=== PATIENT | female | born 1945 | race Two or more races ===

== ENCOUNTER 2024-01-31 13:14 | Inpatient (IN) | payer OTHER, SELFPAY ==
[2024-01-31] VITALS (43 sets, daily range): BP systolic 90–134; BP diastolic 37–66; BMI 28.7; BMI 28.0
[2024-01-31 10:08] LABS: % Basophils 0.4 % (0-2); % Eosinophils 1.1 % (0-6); % Immature Granulocytes 0.2 % (0-0.5); % Monocytes 6.2 % (1.7-9.3); % Neutrophils 85.1 % (42.2-75.2); Absolute Eosinophils 0.1 10^3/uL (0-0.7); Absolute Lymphocytes 0.6 10^3/uL (1.2-3.4); Absolute Monocytes 0.6 10^3/uL (0.1-0.6); Absolute Neutrophils 7.7 10^3/uL (1.4-6.5); Hematocrit 30.6 % (37.0-47.0); Hemoglobin 10.2 g/dL (12.0-16.0); Mean Corp Hgb Conc. 33.3 g/dL (33.0-37.0); Mean Corpuscular Hgb 30.2 pg (27.0-31.0); Mean Corpuscular Volume 90.5 fL (81.0-99.0); Mean Platelet Volume 9.8 fL (7.4-10.4); Nucleated Red Blood Cells % 0 %; Platelet Count 213 10^3/uL (130-400); Red Blood Cell Count 3.38 10^6/uL (4.20-5.40); Red Cell Dist. Width 12.3 % (11.5-14.5)
--- NOTE | 2024-01-31 10:08 | EDRN ---
the pt is being taken to xray on the cardiac and Sp02 monitor with 6L NC running, Sp02 93%, provider Dr. Gr notified
[2024-01-31 10:20] LABS: Blood Urea Nitrogen 35 mg/dl (7-17); Calcium 8.2 mg/dl (8.4-10.2); Carbon Dioxide 20 mmol/L (22-30); Chloride 108 mmol/L (98-107); Estimated Creatinine Clearance 31 ml/min; Glucose 199 mg/dl (70-99); Sodium 137 mmol/L (135-145); eGFR 41.57
[2024-01-31 10:26] LABS: NT-proBNP 11300 pg/ml; Troponin I 0.959 ng/ml
--- NOTE | 2024-01-31 10:30 | EDRN ---
troponin came back elevated
--- NOTE | 2024-01-31 10:32 | ED.GENMED ---
History of Present Illness
General
Chief Complaint: Chest Pain
Source: patient
Exam Limitations: none
Time Seen by Provider: 01/31/24 09:54
History of Present Illness
History of Present Illness:
78-year-old female presents with chest tightness. States it started last night. She has been a little short of breath over the last few days. Thought she had a little bit of a cold but admits that she could not lay down flat last night because
she was more short of breath. Today her chest tightness seem worse. She does have a history of coronary artery disease. states her pulse ox was down to 70s last night. He also states her temperature was 100. Patient does report
continued chest tightness. No leg swelling. No palpitations. Her health and human performance professor is Dr. Rao
Past History
Past History
ED Past Medical History: CAD
Social History
Tobacco: Non-smoker
Phy Exam
Physical Exam
Physical Exam:
CONSTITUTIONAL Patient alert and oriented to person, place and time. ill-appearing. Vital signs reviewed.
HEAD atraumatic, normocephalic.
EYES eyelids normal to inspection, Pupils equally round and reactive to light, Extraocular muscles intact, Conjunctiva normal, Sclera normal.
NECK normal range of motion, Trachea midline, no jugular venous distention.
RESPIRATORY CHEST mild respiratory distress noted, Chest expansion equal, diminished at bilateral bases
CARDIOVASCULAR regular rate and rhythm, Heart sounds normal.
ABDOMEN abdomen nontender, Bowel sounds normal. No distention.
BACK normal inspection, no obvious deformities
UPPER EXTREMITY range of motion normal, Motor strength normal, no cyanosis, no edema.
LOWER EXTREMITY range of motion normal, Motor strength normal, no cyanosis, no edema.
NEURO Speech normal, No focal motor deficits, Adele coma scale 15, Memory normal, Cranial Nerves intact to screening exam.
SKIN skin warm, dry, and normal in color.
PSYCHIATRIC patient oriented to person place and time, Normal affect.
Scores
Heart Score for Chest Pain Patients
STEMI patient?: No
History: Highly Suspicious
ECG: Significant ST-Depression
Age: >/= 65 years
Risk Factors: >/= 3 Risk Factors or History of CAD
Troponin: >/= 3 x Normal Limit
Heart Score for Chest Pain Patients: 10
Heart Score Risk: 72.7 % MACE over next 6 weeks
Course
Orders/Labs/Results
Orders:
Orders
01/31/24 09:47
EKG [Electrocardiogram (*1)] Urgent
Reason for Study: Chest Pain
CR Chest - 2 Views Urgent
Comment:
Reason For Exam: shortness of breath
01/31/24 09:48
EKG- Treatment ONCE
01/31/24 09:52
Basic Metabolic Panel Urgent
Complete Blood Count/With Diff Urgent
NT-proBNP Urgent
Troponin I Urgent
01/31/24 10:28
Furosemide [Lasix] 40 mg IV NOW STA
01/31/24 10:30
Heparin 4,000 units IV NOW STA
Heparin 18989 Units/250 ml 25,000 units in 250 ml IV PER PROTOCOL
Weight to be used for heparin protocol in kilograms (kg):: 68.9
Protocol:: Cardiac Tx/Acute Coronary
PTT Goal Range to be used:: PTT 73 to 111 seconds
Order type:: Initial
INITIAL Infusion Dose (UNITS/KG/hr) & then follow protocol:: 12 units/kg/hr
Infusion Dose in UNITS/hr & then follow protocol (UNITS/hr):: 850
INFUSION RATE in mL/hr & then follow protocol (mL/hr):: 8.5
PTT less than or equal to 64 seconds:: Increase rate by 200 units/hr (+ 2 mL/hr)
PTT 64.1 to 72.9 seconds:: Increase rate by 100 units/hr (+ 1 mL/hr)
PTT 73 to 111 seconds:: Target Range. No change in rate.
PTT 111.1 to 130.9 seconds:: Decrease rate by 100 units/hr (- 1 mL/hr)
PTT 131 to 199.9 seconds:: HOLD for 1 hr. Then decrease rate by 200 units/hr (- 2 mL/hr)
PTT greater than or equal to 200 seconds:: HOLD for 2 hrs & Notify Provider. Then decrease by 200 units/hr (-
2 mL/hr)
Lab follow-up:: Each change, PTT q6h until 2 consecutive are therapeutic. Then PTT
daily.
Nursing to Place Non Medication Order As Directed
Physician Order: PTT 6 hours after initial start of Heparin infusion
Above order entered?: Yes
01/31/24 10:34
Electrocardiogram (*1) Urgent
Reason for Study: Chest Pain
EKG- Treatment ONCE
Nitroglycerin 100 mg/250 ml [Nitroglycerin Premix] 100 mg in 250 ml IV NOW
Initial dose in mcg/min, then titrate:: 5
Titrate to keep:: SBP < 160 mmHg
Titrate by mcg/min:: 5 mcg/min, may increase by 10 mcg/min if dose > 20 mcg/min
Frequency of titrations (minutes):: every 3-5 minutes
Maximum dose in mcg/min:: 200
Begin to taper infusion when:: Remained at goal for 2hrs
Taper by mcg/min:: 5 mcg/min
Frequency of taper (minutes) if patient maintains goal:: 30
Taper to off?: Yes
If infusion off & no longer maintaining goal:: Contact Provider
01/31/24 10:45
Heparin 59449 Units/250 ml 25,000 units in 250 ml IV PER PROTOCOL
Weight to be used for heparin protocol in kilograms (kg):: 68.9
Protocol:: Cardiac Tx/Acute Coronary
PTT Goal Range to be used:: PTT 73 to 111 seconds
Order type:: Initial
INITIAL Infusion Dose (UNITS/KG/hr) & then follow protocol:: 12 units/kg/hr
Infusion Dose in UNITS/hr & then follow protocol (UNITS/hr):: 850
INFUSION RATE in mL/hr & then follow protocol (mL/hr):: 8.5
PTT less than or equal to 64 seconds:: Increase rate by 200 units/hr (+ 2 mL/hr)
PTT 64.1 to 72.9 seconds:: Increase rate by 100 units/hr (+ 1 mL/hr)
PTT 73 to 111 seconds:: Target Range. No change in rate.
PTT 111.1 to 130.9 seconds:: Decrease rate by 100 units/hr (- 1 mL/hr)
PTT 131 to 199.9 seconds:: HOLD for 1 hr. Then decrease rate by 200 units/hr (- 2 mL/hr)
PTT greater than or equal to 200 seconds:: HOLD for 2 hrs & Notify Provider. Then decrease by 200 units/hr (-
2 mL/hr)
Lab follow-up:: Each change, PTT q6h until 2 consecutive are therapeutic. Then PTT
daily.
01/31/24 10:46
COVID-19 Antigen Urgent
Source: Nasal Swab
PTT Urgent
Comment: Obtain baseline before beginning heparin infusion if not already collected
Aspirin 325 mg PO NOW STA
01/31/24 11:[address] See Dose Instructions IV DIRECTED
01/31/24 11:04
CARDIOLOGY CONSULT Routine
Consulting Provider: Adalberto Escobedo
Was physician already notified: Yes
Reason for consult: heart failure
01/31/24 12:04
Add On- LAB Routine
Tests Added?: LFTs
01/31/24 12:27
Admit/Transfer Patient As Directed
Co-Sign Provider:
Level of Care: Inpatient admission
Assign to:: IVU
Physician / Group: Diamond Guan
Diagnosis: Heart Failure Exacerbation unspecified type and possible ACS
Reason for Hospitalization: Heart Failure Exacerbation unspecified type and possible ACS
Expected length of stay greater than two midnights?: Yes
ELOS- Estimated Length of Stay in days: 2
I certify the patient meets the requirements for IP care: Yes
PRN Pain Medication Management As Directed
May give lesser potent ordered pain med per pt: Yes
preference::
Protocol:: Medication orders for pain may be administered in a
manner that supports deferring to patient preference
when the pt is:
- Requesting an ordered lesser potent pain medication.
Least to most potent pain medications are defined
as: acetaminophen < NSAID < tramadol < opioids
(morphine, oxycodone, hydromorphone).
- Requesting a lesser dose of the same medication IF
ORDERED.
- Requesting a less intrusive route of administration
if both routes are prescribed by the provider (PO <
IV).
01/31/24 12:29
Code Status As Directed
Resuscitation Status: Full Code
01/31/24 12:[address] Non Medication Order As Directed
Physician Order: needs med reconciliation
Above order entered?: Yes
01/31/24 13:38
Influenza A+B Rapid Molecular Routine
MAUREEN Source: Nasal Swab
Specimen Description:
01/31/24 16:45
PTT Urgent
Abnormal Lab Results
01/31/24 01/31/24
09:52 10:46
RBC 3.38 L 10^6/uL
(4.20-5.40)
Hgb 10.2 L g/dL
(12.0-16.0)
Hct 30.6 L %
(37.0-47.0)
Absolute Neuts (auto) 7.7 H 10^3/uL
(1.4-6.5)
Absolute Lymphs (auto) 0.6 L 10^3/uL
(1.2-3.4)
Neutrophils % 85.1 H %
(42.2-75.2)
Lymphocytes % 7.0 L %
(20.5-51.1)
APTT 47.1 H Sec
(23.4-35.0)
Chloride 108 H mmol/L
(98-107)
Carbon Dioxide 20 L mmol/L
(22-30)
BUN 35 H mg/dl
(7-17)
Creatinine 1.3 H mg/dL
(0.6-1.0)
Glucose 199 H mg/dl
(70-99)
Calcium 8.2 L mg/dl
(8.4-10.2)
Troponin I 0.959 H* ng/ml
01/31/24 09:52
01/31/24 09:52
Vital Signs
Initial and Last Documented VS:
Initial Vital Signs
BP
119/55
01/31/24 09:48
Last Documented Vital Signs
Temp Pulse Resp BP Pulse Ox
98.4 F 65 22 105/52 95
01/31/24 09:54 01/31/24 15:30 01/31/24 15:30 01/31/24 15:15 01/31/24 15:30
MDM/Problems Addressed
MDM/Problems Addressed:
NSTEMI, acute coronary syndrome, congestive heart failure, hypoxia
*Radiology
Radiology exam reviewed: preliminary read by ED provider (CHF)
*Pulse Oximetry
Patient hypoxic: yes
*EKG
Interpreted by ED Provider?: Yes
Interpretation: abnormal
Rate: normal
Rhythm: sinus
[place]: normal axis
Ischemia: ST depression
*Foundation Assistant Interpretation
Rate: tachycardiac
Interpretation: abnormal
Rhythm: sinus
*Critical Care Note
Total Time (30-74mins, 75-104mins- exclusive of procedures): 45 minutes
Data Reviewed
Source: patient
Further Testing Considered But Not Given:
Considered chest CT but clearly CHF and NSTEMI.
Patient Management
Discussion with other providers: Staff Nurse Anesthetist (Case discussed with Dr. Escobedo)
Escalation/DeEscalation of care consider admission/obs:
Patient now being seen by cardiology at bedside. Chest pain/tightness does persist but now on nitroglycerin. He to be careful with her blood pressure with regard to oral diuretics and nitroglycerin. Given aspirin and heparin. Admit. EKG #2,
repeat is unchanged from #1
ED Attending Note
-
Portions of this chart may have been created with voice recognition software.� Occasional wrong word or��sound alike� substitutions may have occurred due to the inherent limitations of voice recognition software.
Discharge Plan
Departure
Patient Disposition: Admit
Date of Disposition: 01/31/24
Time of Disposition: 10:33
Admit to: [facility]
Presentation/result/management discussed w/ accepting MD/DO: Hospitalist
Discharge Problem:
Acute non-ST elevation myocardial infarction (NSTEMI), Unstable angina, CHF (congestive heart failure)
Interventions
Interventions:
*Risk Screen - Suicide Last Done: 01/31/24 09:54
*General Assessment Last Done: 01/31/24 09:54
*Neglect/Abuse Screening Last Done: 01/31/24 09:54
ED- Fall Risk Assessment Last Done: 01/31/24 09:54
*ED COVID-19 Vaccine History Last Done: 01/31/24 09:54
ED- Cardiac Assessment Last Done: 01/31/24 09:54
[2024-01-31] MEDS: LASIX 40 MG IV ×2 (10:39→17:16)
[2024-01-31] MEDS: HEPARIN 4000 UNITS IV (10:41)
[2024-01-31] MEDS: NITROGLYCERIN PREMIX 250 IV (10:42)
[2024-01-31] MEDS: HEPARIN 25000 UNITS/250 ML IV (10:44)
--- NOTE | 2024-01-31 10:59 | EDRN ---
the pt is resting in stretcher in the lowest position, side rails up x2, call rosas within reach, HOB elevated, NSR in the 70's with ST depression, last BP 98/38 (55), Dr. Escobedo at the pts bedside and aware of the pts hypotension, Heparin gtt
currently running at 850units/hour, and Nitro gtt currently running at 20mcg/min for chest pain of 7/10 in the center of the chest with no radiation, labs drawn and sent, PTT reordered for 1644, will continue to monitor the pt closely
--- NOTE | 2024-01-31 11:03 | CON.CAR ---
Addendum entered and electronically signed by Adalberto Escobedo MD 02/01/24 10:23:
plan for ASA should read: ASA 325mg now, then 81mg daily.
Original Note:
Consultation
Consultation Request
Date/Time Consultation Requested: 01/31/24, 1030am
Date/Time Consultation Performed: 01/31/24, 1040am
Requesting Provider: Aurora
Performing Provider: Fanny
Reason for Consultation: chest tightness
Medical History
-
Chief Complaint: SOB, chest tightness
History of Present Illness:
78 yo female with PMH of CAD, prior distal RCA stents 2000, HTN, hyperlipidemia presents to ED with SOB and chest tightness. On Fri, she reports she started with a 'head cold' and noticed increased WOB, and also chest tightness with inspiration.
The chest tightness did not seem to associate with activity. Then, last evening she noted low grade temp and hypoxia on home pulse ox. Her then brought her to the ED.
Currently, she has not chest pain at rest. There is some chest tightness with deep inspiration.
Past Medical History
Past Medical History: CAD, HTN and Hypercholesterolemia
Past Surgical History: Cardiac (stent x2 to distal RCA 2000)
Social History
Tobacco: Non-Smoker
Family History
Family History: CAD (sister)
Allergies / Home Medications
Allergy/AdvReac Type Severity Reaction Status Date / Time
No Known Allergies Allergy Unverified 01/31/24 10:31
ASA 81mg daily
Review of Systems
-
History Source: Patient and Family
Constitutional: Fever
Respiratory: Trouble Breathing
Cardiac: Chest Pain
Physical Exam
Vital Signs
Temp Pulse Resp BP Pulse Ox
98.4 F 75 20 134/62 96
01/31/24 09:54 01/31/24 10:39 01/31/24 10:00 01/31/24 10:39 01/31/24 10:00
Lab Results
01/31/24 09:52
01/31/24 09:52
Troponin I 0.959 ng/ml H* 01/31/24 09:52
Flm-U-Wneyhiwtcqd Pept 10260 pg/ml 01/31/24 09:52
Physical Exam
General: Respiratory Distress
HEENT: Normocephalic and Anicteric
Respiratory: Crackles and Accessory Resp Muscle Use
Cardiac: S1/S2 (normal), Regular Rhythm, Murmur (none), Peripheral Edema (trace) and JVD (present)
GI: Soft and Non Tender
Musculoskeletal: No Clubbing, No Cyanosis and Edema (trace LE)
Skin: Warm and Dry
Neuro: AO x 3
Psych: Calm
Impression / Plan
-
78 yo female with PMH of CAD, prior distal RCA stents 2000, HTN, hyperlipidemia presents to ED with SOB and chest tightness.
# SOB and chest tightness
-seemed to start with URI symptoms on Fri, then worsened
-the chest tightness does not seem like typical angina; however, she does have ST depression on EKG (no prior for comparison), and elevated troponin 0.9
-CXR also shows evidence of pulmonary edema
-may be acute HF (type unspecified) triggered by respiratory infection
-agree with IV lasix 40mg IV bid, with close monitoring of labs and tele
-we will also treat for NSTEMI vs Type II NV as we trend trop and EKG
-ASA 325mg bid, heaprin drip, nitro drip
# CAD s/p RCA stents in 2000
-plan as above
-we discussed topic of possible cardiac cath this admission
# HTN
-will hold home meds while on nitro drip
# Hyperlipidemia
-statin
Data Reviewed
-
EKG: Tracing Personally Visualized and interpreted (NSR, anterolateral ST depression)
Radiology: Image Personally Visualized and interpreted (pulmonary edema)
Labs: Labs Reviewed by me
--- NOTE | 2024-01-31 11:04 | HPS.HSE ---
Family Physician
-
Family Physician: NO INTERVIEW UNKNOWN
Chief Complaint
-
Shortness of breath
History of Present Illness
78F CAD RCA stentsx2 2000 HTN HLD p/w progressive intermittent chest pain shortness of breath approx duration 4 days. Patient reported symptoms started with a 'head cold' with associate fever 101. Fever since resolved, patient was prompted to
visit ED when she developed significant shortness of breath over night unable to lie flat. Denies weight gain leg swelling. Chest pain was described as central/sternal pressure intermittent never lasting more than a few minutes at a time. BP soft
low normotensive. Afebrile. Patient was noted desaturating on room air 82% requiring nasal cannula supplementation. CXR suggest pulm edema. Troponin elevated 0.959 amd BNP 55602.
Medical History
Past Medical History
Past Medical History: Reports Other (as above)
Past Surgical History: Reports Other (as above)
Social History
Tobacco: Non-smoker
Alcohol: None
Drug: None
Personal:
Living: With Family
Family History
Family History: Not pertinent (reviewed)
Allergies / Home Medications
Allergies reflects when Allergies were last updated in [employer].
Home Medications with original date entered in [employer]
Allergy/Medication List:
Allergies
Allergy/AdvReac Type Severity Reaction Status Date / Time
No Known Allergies Allergy Unverified 01/31/24 10:31
Review of Systems
-
A 12 point ROS was completed and negative except as noted: Yes
Constitutional: Reports Other (as below)
Physical Exam
Vital Signs
Vital Signs
Temp Pulse Resp BP Pulse Ox
98.4 F 75 20 134/62 96
01/31/24 09:54 01/31/24 10:39 01/31/24 10:00 01/31/24 10:39 01/31/24 10:00
Physical Exam
General: Other (as below)
Laboratory Results
-
01/31/24 09:52
01/31/24 09:52
Laboratory Results
Total Bilirubin Cancelled 01/31/24 09:52
AST Cancelled 01/31/24 09:52
ALT Cancelled 01/31/24 09:52
Alkaline Phosphatase Cancelled 01/31/24 09:52
Troponin I 0.959 ng/ml H* 01/31/24 09:52
Impression/Plan
-
ROS
General: reports fever at onset of symptoms since resolved
Neuro: Denies seizure shaking loss of consciousness dizziness vertigo
Psych: denies depression hallucinations confusion manic episodes
Endocrine: Denies polyuria polydipsia polyphagia heat/cold intolerance
HEENT: Denies blindness visual disturbances epistaxis
Pulmonary: reports orthopnea sob on exertion
Cardiovascular: reports intermittent chest pain described as sternal pressure sensation minutes duration at a time denies leg swelling
Hematology: denies signs symptoms of anemia easy bruising/bleeding
Gastrointestinal: denies nausea vomiting diarrhea constipation hematemesis hematochezia melena
Genito-Urinary: denies retention incontinence dysuria
Musculoskeletal: denies joint pain weakness
Dermatology: denies rash laceration bruising
Physical Exam
General: No pallor, cyanosis, or jaundice.
HEENT: Throat clear. PERRLA Normocephalic atraumatic
NECK: Supple. No JVD Carotid Bruits
RESPIRATORY: bibasilar crackles
CVS: S1, S2 normal. RRR. No murmur, rub or gallop.
ABDOMEN: Soft, non-tender. No distension. BS+/normal.
EXTREMITIES: No peripheral cyanosis or edema.
HOUSE WIRER HELPER: AOx3
IMPRESSION:
78F CAD RCA stentsx2 2000 HTN HLD p/w progressive intermittent chest pain shortness of breath approx duration 4 days. Patient reported symptoms started with a 'head cold' with associate fever 101. Fever since resolved, patient was prompted to
visit ED when she developed significant shortness of breath over night unable to lie flat. Denies weight gain leg swelling. Chest pain was described as central/sternal pressure intermittent never lasting more than a few minutes at a time. BP soft
low normotensive. Afebrile. Patient was noted desaturating on room air 82% requiring nasal cannula supplementation. CXR suggest pulm edema. Troponin elevated 0.959 amd BNP 97237.
PLAN:
#Acute Heart Failure unspecified type possibly triggered by recent viral URI
#Intermittent chest pain possibly NSTEMI vs type II PR
#Acute Respiratory Failure 2/2 Heart failure as above
#HTN
#HLD
IVU
IV lasix 40 BID
nitro prn chest pain (nitro gtt consider but chest pain free at time of evaluation and bp borderline low hypotensive)
Cardio eval appreciated cont hep gtt and ASA 325 mg BID, possible heart Cath planned for Mon
follow up AM lipid panel
trend troponin EKG
COVID neg, check Flu
#Non-insulin dependent DM
reports prior use ozempic since discontinued
on Actos at home
hold home oral diabetic medications for now
Follow up AM A1c and cont with insulin sliding scale for now.
dvt ppx hep gtt
gi ppx Protonix
Full Code
I spent a total of 75 minutes with the patient or on the floor. More than 50% of this time involved counseling and coordination of care.
--- NOTE | 2024-01-31 11:13 | EDRN ---
this RN entered the pts room and asked the pt how her chest pain currently is, the pt states that her chest 'pressure' is currently a 5/10, the pt states, 'it is so much better i am so much more comfortable', this RN notified Dr. Escobedo and per
Fanny the Nitro gtt is to stay at 2mcg/min, the pt is not symptomatic of hypotension, last BP 92/37 (52) will continue to monitor the pt closely
[2024-01-31 11:24] LABS: COVID-19 Antigen Negative (Negative)
[2024-01-31] MEDS: ASPIRIN 325 MG PO ×2 (11:25→19:58)
--- NOTE | 2024-01-31 11:30 | EDRN ---
this RN entered the pts room and per the pt her chest pressure is currently a 4/10, Nitro gtt currently still running at 20mcg/min, this RN notified Dr. Escobedo and per the provider this RN is to keep Nitro gtt at 20mcg/min and do not titrate unless
SBP drops below 90, current blood pressure 95/50 (65), no c/o lightheadedness of dizziness, PO Aspirin administered to the pt with no issues, will continue to monitor the pt closely
[2024-01-31 11:32] LABS: APTT 47.1 Sec (23.4-35.0)
--- NOTE | 2024-01-31 12:04 | EDRN ---
this RN reached out to Dr. Escobedo again to notify him that Nitro gtt is currently still at 20mcg/min with chest pain at a 07/05 with no radiation, the pt states that she feels, 'great and comfortable', the pts last blood pressure was 95/66 (76), per
Dr. Escobedo the Nitro gtt is to remain at 20mcg/min, the pt is resting in stretcher in the lowest position, side rails up x2, call rosas within reach, HOB elevated, no c/o SOB currently, NSR in the 70's with ST depression, the pt is currently still on
6L NC Sp02 97%, this RN notified that per the provider the pt is on bed rest, this RN notified the pt that when she has to urinate due to lasix that was administered to press the call rosas and she will be placed on the pure wick, the pt was educated
on the use of the call rosas again, and was educated on the use of the pure wick, the pt verbally stated that she understood, will continue to monitor the pt closely
--- NOTE | 2024-01-31 12:16 | EDRN ---
hospitalist currently at the pts bedside speaking with the pt and the pts
--- NOTE | 2024-01-31 13:24 | EDRN ---
medication reconciliation performed and completed with the pt and the pts
--- NOTE | 2024-01-31 14:21 | EDRN ---
the pt is resting in stretcher in the lowest position, side rails up x2, call rosas within reach, HOB elevated, no c/o SOB, the pt has 1/10 chest pain that is non radiating, Nitro gtt currently still at 20mcg/min, Heparin gtt currently still at
850units/hour, NSR in the 60's, the pt is currently still on 6L NC Sp02 97%, still awaiting an IVU bed, the pt denies needing anything at this time, will continue to monitor the pt closely
[2024-01-31] MEDS: PROTONIX 40 MG PO (17:16)
[2024-01-31] MEDS: FLUSH (NSS) 1 FLUSH IV (17:16)
--- NOTE | 2024-01-31 18:03 | PTCARENOTE ---
Received the patient from the ED in a stretcher. The patient is aaox3, vss, 99 on 4L. NSR is noted on the monitor. She ambulated to the bathroom x 1 assist. Her gait is steady. Heparin gtt running at 850 units/hr. Nitro gtt running at 20 mcg/min.
She has no complaints of pain or SOB. I oriented her to her room. Her call rosas is within reach.
[2024-01-31 19:01] LABS: APTT 141.6 Sec (23.4-35.0)
[2024-02-01] VITALS (8 sets, daily range): BP systolic 113–136; BP diastolic 47–72; BMI 27.6
[2024-02-01 03:07] LABS: Hematocrit 24.9 % (37.0-47.0); Hemoglobin 8.3 g/dL (12.0-16.0); Mean Corp Hgb Conc. 33.3 g/dL (33.0-37.0); Mean Corpuscular Hgb 31.1 pg (27.0-31.0); Mean Corpuscular Volume 93.3 fL (81.0-99.0); Mean Platelet Volume 9.6 fL (7.4-10.4); Platelet Count 203 10^3/uL (130-400); Red Blood Cell Count 2.67 10^6/uL (4.20-5.40); Red Cell Dist. Width 12.1 % (11.5-14.5); White Blood Cell Count 8.1 10^3/uL (4.8-10.8)
[2024-02-01 03:17] LABS: APTT 98.3 Sec (23.4-35.0)
[2024-02-01 03:36] LABS: Blood Urea Nitrogen 38 mg/dl (7-17); Calcium 8.1 mg/dl (8.4-10.2); Carbon Dioxide 25 mmol/L (22-30); Chloride 107 mmol/L (98-107); Estimated Creatinine Clearance 26 ml/min; Glucose 107 mg/dl (70-99); HDL Cholesterol 37 mg/dl; LDL Cholesterol, Calculated 37 mg/dl; Magnesium 2.1 mg/dl (1.6-2.3); Phosphorus 4.1 mg/dl (2.5-4.5); Potassium 4.1 mmol/L (3.5-5.1); Sodium 140 mmol/L (135-145); Total Cholesterol 100 mg/dl (50-199); Triglyceride 133 mg/dl (10-149); Very Low Density Lipoprotein 26 mg/dl (0-30); eGFR 35.01
--- NOTE | 2024-02-01 04:50 | PTCARENOTE ---
Pt received start of shift, HR SR. Heparin infusing at 650u/hr. Nitro infusing at 10mcg/min. Pt has remained CP free through shift. Urine clear yellow. Educated pt on risks of purewick, emphasizing on infection. Pt states understanding. Pt 96-97% 2L
NC.
--- NOTE | 2024-02-01 06:46 | PTCARENOTE ---
Around 0610 pt used call rosas to inform RN she felt extremely SOB and burning pain in neck 2-07/05. SpO2 89-90% 2L NC. 5L NC 94-96% - pt states she doesn't feel SOB. Nitro gtt titrated up to 20mcg, pt states neck pain gone. EKG completed.
[2024-02-01] MEDS: ASPIRIN 325 MG PO (08:11)
[2024-02-01] MEDS: FLUSH (NSS) 2 FLUSH IV (08:11)
[2024-02-01] MEDS: LASIX 40 MG IV (08:11)
--- NOTE | 2024-02-01 08:48 | W.PN.HOSP.TC ---
Today's Communication/Plan
-
cont hep gtt nitro gtt ASA BB as per cardio
npo after midnight for cath
hold lasix d/t concern increasing Cr
Oxygen supplementation as necessary goal sat 92%
follow up AM A1c
Assessment / Plan
Assessment / Plan
Physical Exam
General: No pallor, cyanosis, or jaundice.
HEENT: Throat clear. PERRLA Normocephalic atraumatic
NECK: Supple. No JVD Carotid Bruits
RESPIRATORY: bibasilar crackles on nasal cannula oxygen supplementation
CVS: S1, S2 normal. RRR. No murmur, rub or gallop.
ABDOMEN: Soft, non-tender. No distension. BS+/normal.
EXTREMITIES: No peripheral cyanosis or edema.
CAR RECORD CLERK: AOx3
IMPRESSION:
78F CAD RCA stentsx2 2000 HTN HLD p/w progressive intermittent chest pain shortness of breath approx duration 4 days. Patient reported symptoms started with a 'head cold' with associate fever 101. Fever since resolved, patient was prompted to
visit ED when she developed significant shortness of breath over night unable to lie flat. Denies weight gain leg swelling. Chest pain was described as central/sternal pressure intermittent never lasting more than a few minutes at a time. BP soft
low normotensive. Afebrile. Patient was noted desaturating on room air 82% requiring nasal cannula supplementation. CXR suggest pulm edema. Troponin elevated 0.959 and BNP 54132.
PLAN:
#Acute Heart Failure unspecified type possibly triggered by recent viral URI
#Intermittent chest pain possibly NSTEMI vs type II ID
#Acute Respiratory Failure 2/2 Heart failure as above
#HTN
#HLD
IVU
IV lasix 40 BID on hold d/t to rise in Cr as below
ECHO Friday
Cardio eval appreciated cont hep gtt, nitro gtt, ASA 81 mg daily, Metoprolol XL 25 mg BID, heart Cath planned for tomorrow Fri
Lipid panel appreciated LDL at goal <70
Troponin trended to peak 1.920
COVID neg, Flu neg
O2 supplementation prn goal sat 92%
Possible RACHEAL vs CKD III
-patient does endorse hx Chronic Kidney Disease but doesn't know her baseline Cr or what stage she was diagnosed
-mild Cr increase from initial Cr 1.3 to 1.5
-Lasix on hold as per Cardio
-monitor
hx HTN
Started on Metoprolol as per cardio
home antihypertensives on hold while on nitro gtt as above
#Non-insulin dependent DM
reports prior use ozempic since discontinued
on Actos at home
hold home oral diabetic medications for now
Follow up AM A1c, sliding scale if significantly elevated
dvt ppx hep gtt
gi ppx Protonix
Full Code
I spent a total of 55 minutes with the patient or on the floor. More than 50% of this time involved counseling and coordination of care.
Anticipated Discharge: 24 - 48 hours
Subjective/Interval History
-
Date of Service: February 01, 2024
No acute distress sitting up comfortable in bed. Overall reports feeling well, had an episode of shortness of breath desaturating since improved following increase in oxygen supplementation to 5L.
Objective Data
-
Labs:
Laboratory Results
02/01/24 02/01/24
02:51 08:55
WBC 8.1
Hgb 8.3 L
Hct 24.9 L
Plt Count 203
APTT 98.3 H Pending
Sodium 140
Potassium 4.1
Chloride 107
Carbon Dioxide 25
BUN 38 H
Creatinine 1.5 H
Glucose 107 H
Calcium 8.1 L
Vital Signs:
Vital Signs
Temp Pulse Resp BP Pulse Ox
98.8 F 67 20 114/53 99
02/01/24 06:52 02/01/24 07:00 02/01/24 06:52 02/01/24 06:54 02/01/24 06:52
I&O
01/31/24 02/01/24 02/02/24
06:59 06:59 06:59
Output Total 650 / 650 650 / 650
Balance -650 / -650 -650 / -650
[2024-02-01] MEDS: PROTONIX 40 MG PO (08:59)
[2024-02-01 09:12] LABS: APTT 89.2 Sec (23.4-35.0)
--- NOTE | 2024-02-01 11:25 | W.PN.CD ---
Today's Communication / Plan
-
ASA 81mg daily, heparin drip, nitro drip, beta larissa
plan for cath and echo in AM
Impression / Plan
-
78 yo female with PMH of CAD, prior distal RCA stents 2000, HTN, hyperlipidemia presents to ED with SOB and chest tightness.
#NSTEMI
-chest pain free, peak trop 1.9
-ASA 81mg daily, heparin drip, nitro drip, beta larissa
-plan for cath and echo in AM
# Acute HF, type unspecified: improved s/p IV lasix
-Cr mildly increased today, will hold additional diuretic
-echo tomorrow
# CAD s/p RCA stents in 2000
-plan as above
# HTN
-will hold home meds while on nitro drip
# Hyperlipidemia
-LDL 37
-statin
Physical Exam
Vital Signs/Labs
Vital Signs
Temp Pulse Resp BP Pulse Ox
98.9 F 67 20 114/53 97
02/01/24 11:06 02/01/24 07:00 02/01/24 11:06 02/01/24 06:54 02/01/24 11:06
01/31/24 02/01/24 02/02/24
06:59 06:59 06:59
Actual Weight 66.3 kg
02/01/24 02:51
02/01/24 02:51
APTT 89.2 Sec (23.4-35.0) H 02/01/24 08:53
Magnesium 2.1 mg/dl (1.6-2.3) 02/01/24 02:51
Triglycerides 133 mg/dl (10-149) 02/01/24 02:51
LDL Cholesterol, Calc 37 mg/dl 02/01/24 02:51
VLDL Cholesterol, Calc 26 mg/dl (0-30) 02/01/24 02:51
HDL Cholesterol 37 mg/dl 02/01/24 02:51
01/31/24
09:52
Fgx-H-Mfuimifwqaw Pept [id number]
LAB Results
01/31/24 01/31/24 01/31/24
09:52 17:26 22:53
Troponin I 0.959 H* 1.860 H* D 1.920 H*
02/01/24
02:51
Troponin I 1.890 H*
Physical Exam
Constitutional: No acute distress and Comfortable
EENT: Moist mucous membranes
Cardiovascular: Rhythm & rate is regular, Pedal edema is absent, JVD pressure is normal and Systolic murmur absent
Respiratory: Respiratory effort normal
Neuro/Psych: AO x 3
Data Reviewed
-
Date of Service: February 01, 2024
EKG: Other (Tele: SR 60s)
Labs: Labs Reviewed by me
[2024-02-01] MEDS: TOPROL XL 25 MG PO ×2 (11:56→19:49)
[2024-02-01] MEDS: NON-FORMULARY ITEM 1 TABLET PO ×2 (12:35→19:51)
[2024-02-01] MEDS: CRESTOR 20 MG PO (17:08)
--- NOTE | 2024-02-01 19:03 | PTCARENOTE ---
The patient has been chest pain free all shift. Her vitals remained stable and her oxygen has been weaned down to 3L. NSR has been noted on the monitor. She has been oob to the chair and ambulatory in her room. Hr gait is steady.
[2024-02-01] MEDS: HEPARIN 25000 UNITS/250 ML IV (22:53)
[2024-02-02] VITALS (13 sets, daily range): BP systolic 117–141; BP diastolic 49–82; BMI 27.2
[2024-02-02] MEDS: ATIVAN 0.25 MG PO (01:09)
--- NOTE | 2024-02-02 01:21 | PTCARENOTE ---
Pt received start of shift, HR SR. 3L NC humidified 96-97%. Nitro infusing at 20mcg/min. Heparin infusing at 650u/hr. Reinforced CAD/HF education w/ pt.
Pt used call rosas. On entering the room, pt appeared extremely anxious - RR 30s and looking around frantically. SPO2 95% 3L NC. Spoke with pt and she stated she is feeling extremely anxious about cardiac cath procedure in am. Calming therapeutic
speech used. Even after explaining to pt she is not getting open heart surgery tomorrow (which pt had thought was going to happen), pt still very anxious. Continued to speak with pt about procedure and her anxiety, pt stated she is open to taking
medication to help calm her for the night. TT OVEN LABORER Lynda Sauer. 0.25mg ativan PO ordered and administered.
[2024-02-02 04:31] LABS: Hematocrit 27.2 % (37.0-47.0); Hemoglobin 9.1 g/dL (12.0-16.0); Mean Corp Hgb Conc. 33.5 g/dL (33.0-37.0); Mean Corpuscular Hgb 31.2 pg (27.0-31.0); Mean Corpuscular Volume 93.2 fL (81.0-99.0); Mean Platelet Volume 9.4 fL (7.4-10.4); Platelet Count 258 10^3/uL (130-400); Red Blood Cell Count 2.92 10^6/uL (4.20-5.40); Red Cell Dist. Width 12.1 % (11.5-14.5); White Blood Cell Count 8.5 10^3/uL (4.8-10.8)
[2024-02-02 04:51] LABS: APTT 195.7 Sec (23.4-35.0)
[2024-02-02 05:25] LABS: Blood Urea Nitrogen 40 mg/dl (7-17); Calcium 8.2 mg/dl (8.4-10.2); Carbon Dioxide 24 mmol/L (22-30); Chloride 107 mmol/L (98-107); Estimated Creatinine Clearance 28 ml/min; Glucose 138 mg/dl (70-99); Magnesium 2.1 mg/dl (1.6-2.3); Phosphorus 3.6 mg/dl (2.5-4.5); Potassium 4.1 mmol/L (3.5-5.1); Sodium 141 mmol/L (135-145); eGFR 38.03
[2024-02-02] MEDS: PROTONIX 40 MG PO (07:56)
[2024-02-02] MEDS: LOW STRENGTH ASPIRIN 81 MG PO (07:56)
[2024-02-02] MEDS: TOPROL XL 25 MG PO ×2 (07:56→19:46)
[2024-02-02] MEDS: NON-FORMULARY ITEM 1 UNIT PO ×2 (07:57→19:45)
[2024-02-02 08:25] LABS: Glycohemoglobin (HgbA1c) 5.6 % (4.0-5.6)
--- NOTE | 2024-02-02 13:23 | CM ---
Chart reviewed. Patient is independent of ADLS, lives with her in a 2 [address], total of 5 TIFFANIE, 0 DME. Plan is for the patient to return home. CM to follow
--- NOTE | 2024-02-02 14:59 | W.PN.HOSP.TC ---
Today's Communication/Plan
-
hep ggt
LHC - await results for next steps
ECHO
BB, statin
Assessment / Plan
Assessment / Plan
Physical Exam
General: No pallor, cyanosis, or jaundice.
HEENT: Throat clear. PERRLA Normocephalic atraumatic
NECK: Supple. No JVD Carotid Bruits
RESPIRATORY: bibasilar crackles on nasal cannula oxygen supplementation
CVS: S1, S2 normal. RRR. No murmur, rub or gallop.
ABDOMEN: Soft, non-tender. No distension. BS+/normal.
EXTREMITIES: No peripheral cyanosis or edema.
SAFETY FIRE BOSS: AOx3
IMPRESSION:
78F CAD RCA stentsx2 2000 HTN HLD p/w progressive intermittent chest pain shortness of breath approx duration 4 days. Patient reported symptoms started with a 'head cold' with associate fever 101. Fever since resolved, patient was prompted to
visit ED when she developed significant shortness of breath over night unable to lie flat. Denies weight gain leg swelling. Chest pain was described as central/sternal pressure intermittent never lasting more than a few minutes at a time. BP soft
low normotensive. Afebrile. Patient was noted desaturating on room air 82% requiring nasal cannula supplementation. CXR suggest pulm edema. Troponin elevated 0.959 and BNP 19386.
PLAN:
#Acute Heart Failure unspecified type
#NSTEMI
#Intermittent chest pain
#Acute Respiratory Failure 2/2 Heart failure as above
#HTN
#HLD
IV lasix 40 BID on hold d/t to rise in Cr as below
ECHO
Cardio eval appreciated cont hep gtt, nitro gtt, ASA 81 mg daily, Metoprolol XL 25 mg BID
LHC
trop peak 1.9
statin
COVID neg, Flu neg
O2 supplementation prn goal sat 92%
Possible RACHEAL vs CKD III
-patient does endorse hx Chronic Kidney Disease but doesn't know her baseline Cr or what stage she was diagnosed
-mild Cr increase from initial Cr 1.3 to 1.5
-Lasix until ECHO performed; Scr slight rise today
-monitor
hx HTN
home antihypertensives on hold while on nitro gtt as above
BB
#Non-insulin dependent DM
reports prior use ozempic since discontinued
on Actos at home
hold home oral diabetic medications for now
Follow up AM A1c, sliding scale if significantly elevated
dvt ppx hep gtt
gi ppx Protonix
Full Code
Total time spent on today's encounter was 50 minutes which included time spent in counseling the patient/family regarding diagnosis and treatment plan as listed above, goals of care, and symptom management. Case was discussed with nursing staff,
specialists, and care coordinators/case management. All labs and imaging personally reviewed by me. Remainder the time spent in detailed review of previous records, lab data, imaging, and other medical provider documentation.
Anticipated Discharge: 24 - 48 hours
Subjective/Interval History
-
Date of Service: February 02, 2024
no acute events, no chest pain
Objective Data
-
Labs:
Laboratory Results
02/02/24 02/02/24
04:09 11:55
WBC 8.5
Hgb 9.1 L
Hct 27.2 L
Plt Count 258 D
APTT 195.7 H* Cancelled
Sodium 141
Potassium 4.1
Chloride 107
Carbon Dioxide 24
BUN 40 H
Creatinine 1.4 H
Glucose 138 H
Calcium 8.2 L
Vital Signs:
Vital Signs
Temp Pulse Resp BP Pulse Ox
97.7 F 62 18 123/60 97
02/02/24 11:01 02/02/24 12:00 02/02/24 11:01 02/02/24 11:01 02/02/24 11:01
I&O
02/01/24 02/02/24 02/03/24
06:59 06:59 06:59
Intake Total 120 / 120
Output Total 650 / 650 2650 / 2650
Balance -650 / -650 -2530 / -2530
Review of Systems
-
History Source: Patient
All other systems: Not reviewed unless documented
Data Reviewed
-
Diagnostic Radiology: Image personally visualized and interpreted and Report Reviewed by me
Labs: Labs Reviewed by me
[2024-02-02] MEDS: NSS 1000 IV (15:05)
--- NOTE | 2024-02-02 15:07 | CONSULT.CT ---
Consultation
-
Date/Time Consultation Requested: 02/02/24 150
Date/Time Consultation Performed: 02/02 1508
Requesting Provider: Kaden SAUCEDO
Performing Provider: Adama Godoy MD
Reason for Consultation: CABG eval
Patient History
Physicians
Family Physician: Bruce Ramirez
Outpatient Dress Cutter: Jalen
Inpatient Dress Cutter: Fanny (she is interested in switching to Fanny)
History of Present Illness
78-year-old female with past medical history of hypertension, hyperlipidemia, CAD s/p stents x 2 to the RCA in 2000 presented to [facility] on 01/30 with progressive intermittent chest pain and shortness of breath for about 4 days. She
reported having symptoms that started with a 'head cold' and fever of Tmax 101. However she presented to the emergency room after developing significant shortness of breath where she was unable to lie flat. While in the emergency room she was
found to have an elevated troponin and a BNP of 11,000. She was started on aspirin, heparin and nitroglycerin infusion and was sent to the cardiac Fabrication Supervisor today. During her left heart cath she was noted to have multivessel disease and CT surgery
was consulted for surgical evaluation.
Past Medical History
Past Medical History: CAD (Stents to RCA), CHF, HTN, Hypercholesterolemia, NIDDM, IA, Renal Insufficiency and SOB
Past Surgical History
Past Surgical History: Cholecystectomy, Orthopedic (rotator cuff) and Other
bile duct stent
Family History
Family Medical History: CAD
Social History
Alcohol: Occasional
Drug: None
Tobacco: Former Smoker
Personal:
Living: With Spouse
Employment: Retired
Allergies
Allergy/AdvReac Type Severity Reaction Status Date / Time
No Known Allergies Allergy Unverified 01/31/24 10:31
Home Medications
�Medication �Instructions �Recorded �Confirmed �Type
amlodipine 10 mg tablet 10 mg PO DAILY Blood Pressure 01/31/24 01/31/24 History
carvedilol 12.5 mg tablet 12.5 mg PO BID Blood Pressure 01/31/24 01/31/24 History
hydralazine 25 mg tablet 25 mg PO BID Blood Pressure 01/31/24 01/31/24 History
pioglitazone 30 mg tablet 30 mg PO DAILY Diabetes 01/31/24 01/31/24 History
vit C 250 mg-vit E 90 mg-zinc 40 1 tab PO BID Supplement 01/31/24 02/01/24 History
mg-copper 1 [id number]
capsule (PreserVision AREDS-2)
Review of Systems
-
History Source: Patient
General: Reports Sleep Disturbance
HEENT: Reports No Symptoms
Respiratory: Reports SOB and PIERRE
Cardiac: Reports CAD
Abdomen/GI: Reports No Symptoms
: Reports No Symptoms
Musculoskeletal: Reports No Symptoms
Skin: Reports No Symptoms
Neurological: Reports No Symptoms
Vascular: Reports No Symptoms
Physical Exam
Vital Signs
Temp 97.7 F 02/02/24 11:01
Temp route: Oral 02/02/24 11:01
Pulse 62 02/02/24 12:00
Rhythm: Normal sinus rhythm 02/02/24 09:22
With- PVC's Monomorphic 02/01/24 08:10
Resp Rate 18 02/02/24 11:01
Blood pressure 123/60 02/02/24 11:01
Blood pressure extremity used: Right upper arm 02/02/24 11:01
Position: Sitting 02/02/24 11:01
MAP (cuff-Christophe Monitor) 80 02/02/24 11:01
MAP 60 01/31/24 14:23
SaO2 97 02/02/24 11:01
Nasal Cannula flow liters per minute 3 02/02/24 11:01
Oxygen Mode of Delivery Room air 02/02/24 09:22
Acceptable pain level during hospitalization? 5 01/31/24 09:54
Can the patient verbally communicate their pain? Yes 02/02/24 09:22
Pain scale ratin 02/02/24 09:22
Actual Weight 65.2 kg 02/02/24 04:39
Body Mass Index (BMI) 27.2 02/02/24 04:39
Labs
02/02/24 04:09
02/02/24 04:09
APTT Cancelled 02/02/24 11:55
Hemoglobin A1c 5.6 % (4.0-5.6) 02/02/24 04:09
Troponin I 1.890 ng/ml H* 02/01/24 02:51
Tjw-C-Qqgvthtcexy Pept 93940 pg/ml 01/31/24 09:52
Exam
General: Well Developed
HEENT: PERRLA
Respiratory: Clear
Cardiac: S1/S2 and Regular Rhythm
GI: Soft
Rectal: Deferred by Provider
Skin: Warm and Dry
Neuro: AO x 3
Lymph: No Lymphadenopathy
Psych: Calm
Assessment / Plan
-
78-year-old female with past medical history listed above presented to [facility] with progressive shortness of breath. She ruled in for an NSTEMI and was taken to the cardiac Fabrication Supervisor in which multivessel disease was found. CT surgery
consulted for surgical evaluation.
#CAD
#NSTEMI
-Patient's case will be discussed with attending physician. However, patient expresses disinterest in surgical intervention at this time. As she stated, 'I'm too old for that crap'.
>>surgical testing will be postponed since patient is not interested in surgical intervention at this time.
-Continue nitroglycerin and heparin gtt per cardiology
- TTE pending
#RACHEAL
- Trend Cr levels
- denies previous kidney issues
Data Reviewed
-
EKG: Tracing Personally Visualized and interpreted
Labs: Labs Reviewed by me and Discussed with Patient
Total Time Spent with Patient (in minutes): 45
--- NOTE | 2024-02-02 15:13 | PTCARENOTE ---
Rec'd Pt alert and oriented, but drowsy from sedation. R redial band intact, C+D. Good radial pulse. R brachial dsg D+I.
--- NOTE | 2024-02-02 17:11 | PTCARENOTE ---
Pt now having a few questions about open heart surgery, she says that now she is not ready to 'write it off'. Nimo ley.
[2024-02-02] MEDS: CRESTOR 20 MG PO (17:26)
--- NOTE | 2024-02-02 17:34 | PTCARENOTE ---
Pt assisted OOB to BR, corinna well. O2 on at 2L/min
--- NOTE | 2024-02-02 20:35 | PTCARENOTE ---
Assessment as documented, Vss. Denies CP but continues to have PIERRE. Cath sites WNL. Patient indicates she would like something to help her sleep as she is anxious. Ativan order obtained.
[2024-02-02] MEDS: ATIVAN 0.25 MG IV (22:12)
[2024-02-02] MEDS: NSS (PRESERVATIVE FREE) 0.125 ML IV (22:12)
[2024-02-03] VITALS (8 sets, daily range): BP systolic 107–137; BP diastolic 49–88; BMI 27.4
--- NOTE | 2024-02-03 01:28 | PTCARENOTE ---
Pt received start of shift, HR SR. R radial and R brachial cath sites soft, no hematoma. Dressings CDI. R radial pulse normal. Pt extremely anxious thinking about the decision on whether or not to 'get [her] chest cracked open'. Spoke at length with
pt about CABG procedure. Pt still undecided about procedure. Educated pt on how procedure may improve QOL and what to expect after. Pt states understanding.
[2024-02-03 04:08] LABS: Blood Urea Nitrogen 39 mg/dl (7-17); Calcium 8.3 mg/dl (8.4-10.2); Carbon Dioxide 22 mmol/L (22-30); Chloride 106 mmol/L (98-107); Estimated Creatinine Clearance 32 ml/min; Glucose 160 mg/dl (70-99); Phosphorus 3.7 mg/dl (2.5-4.5); Potassium 4.3 mmol/L (3.5-5.1); Sodium 138 mmol/L (135-145); eGFR 45.76
[2024-02-03 04:32] LABS: Hemoglobin 9.5 g/dL (12.0-16.0); Mean Corp Hgb Conc. 35.2 g/dL (33.0-37.0); Mean Corpuscular Hgb 31.6 pg (27.0-31.0); Mean Corpuscular Volume 89.7 fL (81.0-99.0); Mean Platelet Volume 9.9 fL (7.4-10.4); Platelet Count 249 10^3/uL (130-400); Red Blood Cell Count 3.01 10^6/uL (4.20-5.40); Red Cell Dist. Width 11.9 % (11.5-14.5); White Blood Cell Count 8.6 10^3/uL (4.8-10.8)
--- NOTE | 2024-02-03 07:44 | W.PN.CD ---
Today's Communication / Plan
-
CTS consult, echo, GDMT pending EF, diuresis
Impression / Plan
-
78 yo female with PMHx of CAD, prior distal RCA stents 2000, HTN, hyperlipidemia presents to ED with SOB and chest tightness, found to have NSTEMI with peak troponin 1.9, now status post cardiac catheterization with severe triple vessel disease.
#NSTEMI
#CAD s/p RCA stents in 2000
-cath with triple vessel disease including proximal LCx, long segment LAD disease, and RPLDA/RPL disease
-chest pain free, peak trop 1.9
-cont. ASA 81mg daily, heparin drip, nitro drip, beta larissa - holding P2Y12 inhibitor pending surgical discussion
-plan echo today
# Acute HF, type unspecified: improved s/p IV lasix
-RHC with elevated filling pressures, patient endorses orthopnea
-diuresis today for goal 500 negative
-Cr improved today
-echo - GDMT pending EF
# HTN
-holding home coreg (metop in place), amlodipine, and hydral
-pending EF will add on GDMT/anti-HTN as indicated
# Hyperlipidemia
-LDL 37
-cont. statin
Physical Exam
Vital Signs/Labs
Vital Signs
Temp Pulse Resp BP Pulse Ox
36.6 C 76 22 127/57 97
02/03/24 03:14 02/03/24 07:00 02/03/24 03:14 02/03/24 03:14 02/03/24 03:14
02/02/24 02/03/24 02/04/24
06:59 06:59 06:59
Actual Weight 65.2 kg 65.7 kg
02/03/24 03:29
02/03/24 03:29
APTT Cancelled 02/02/24 11:55
Magnesium 2.0 mg/dl (1.6-2.3) 02/03/24 03:29
Triglycerides 133 mg/dl (10-149) 02/01/24 02:51
LDL Cholesterol, Calc 37 mg/dl 02/01/24 02:51
VLDL Cholesterol, Calc 26 mg/dl (0-30) 02/01/24 02:51
HDL Cholesterol 37 mg/dl 02/01/24 02:51
01/31/24
09:52
Vra-D-Afbutvdfeqz Pept 51608
LAB Results
01/31/24 01/31/24 01/31/24
09:52 17:26 22:53
Troponin I 0.959 H* 1.860 H* D 1.920 H*
02/01/24
02:51
Troponin I 1.890 H*
Physical Exam
Constitutional: No acute distress
Cardiovascular: Rhythm & rate is regular, Pedal edema is absent, Systolic murmur absent and Diastolic murmur absent
Respiratory: Respiratory effort normal and Lungs clear to auscul.
Neuro/Psych: Alert, Oriented and AO x 3
Data Reviewed
-
Date of Service: February 03, 2024
Medical Decision Making: Reviewed Test Results and Tests Ordered
EKG: Tracing Personally Visualized and interpreted and Report Reviewed by me
X-Ray/CT/US/MRI/NUC/PET: Image Personally Visualized and interpreted and Report Reviewed by me
Labs: Labs Reviewed by me and Labs Ordered by me
--- NOTE | 2024-02-03 08:01 | ITS.CL.CATH ---
Hoisting [employer] - Catheterization
Cardiac Catheterization
Procedure Report:
CARDIAC CATHETERIZATION REPORT
Date of Procedure: 02/02/2024
Referring: Dr. Adalberto Escobedo
Indication: NSTEMI
PROCEDURE:
1. Right heart catheterization
2. Left heart catheterization
3. Coronary angiography
ACCESS:
6 Portuguese right radial artery
5 Portuguese right antecubital vein
CATHETERS:
1. 5 Portuguese balloon wedge/[place]un
2. 6 Portuguese JL3.5
3. 6 Portuguese JR4
HEMODYNAMIC DATA
LV 143/18 (EDP 31)
AO 133/59 (mean 91)
RA 12
RV 41/7 (EDP 14)
PA 44/23 (mean 31)
PCWP 19
CO/CI 4.3/2.6
SVR 1459
PVR 2.8
CORONARY ANGIOGRAPHY
Dominance: right
LM: large with minimal disease
LAD: gives rise to two diagonal branches. The proximal vessel is heavily calcified and the mid-distal vessel is severely and diffusely diseased with a long segment 80% stenosis.
LCx: gives rise to a moderate caliber OM1 and large branching OM2. There is a 90% stenosis in the proximal LCx after OM1 and diffuse moderate to severe disease in the distal branches of OM2.
RCA: large vessel giving rise to a RPDA and several RPL branches. There significant calcification through the RCA. The mid-RCA has a calcified 60% stenosis. There is an 80% stenosis in a small caliber RPDA and an 80% stenosis in the distal RPL,
which are both small vessels.
Closure Device: TR band
Radiation dose (mGy): 264
DAP (cm2.Gy): 18.3
Fluoroscopy time (minutes): 3.6
CONCLUSIONS:
1. Severe triple vessel coronary artery disease
2. Elevated biventricular filling pressures and normal cardiac output.
3. No aortic stenosis.
RECOMMENDATIONS:
1. Expectant management after cardiac catheterization via right approach.
2. Echo in AM.
3. CT surgery consult. If no good target for HERNANDEZ, would instead offer PCI of the possible culprit LCx and medically manage her LAD and RCA disease.
4. Cont. ASA, BB, statin. No P2Y12 for now pending surgical decision making.
Copy to: Bruce Ramirez, DO
Signed: Pradeep Holley MD, PhD
[2024-02-03] MEDS: NON-FORMULARY ITEM 1 UNIT PO ×2 (08:57→19:52)
[2024-02-03] MEDS: PROTONIX 40 MG PO (08:57)
[2024-02-03] MEDS: LOW STRENGTH ASPIRIN 81 MG PO (08:57)
[2024-02-03] MEDS: TOPROL XL 25 MG PO ×2 (08:57→19:52)
[2024-02-03] MEDS: LASIX 40 MG IV (09:02)
--- NOTE | 2024-02-03 09:38 | PN.CDI ---
CDI
- -
CDI:
Physician Documentation Request
Admit Date: 01/31/24 13:14
Dear Doctor Tripp,
Please review the following and provide your response in the progress notes.
Clinical Indicators:
- 02/01 PN 'Acute Respiratory Failure' without specificity
- per EMS report, pulse ox 87% on room air, placed on 4L O2
- Pulse ox 82% on admission, placed on 6L O2, pulse ox 96%
Please clarify the type and acuity of respiratory failure:
Type
Respiratory failure with hypoxia
Respiratory failure with hypercapnia
Respiratory failure with hypoxia and hypercapnia
Other, please specify
Use of terms such as suspected, likely, concern for, or probable (associated with a specific diagnosis that is being evaluated, monitored, or treated as if it exists) are acceptable and can be coded in the inpatient setting, when documented at the
time of discharge.
Thank you,
Dave Lee RN
CDI Specialist
Please use your independent medical judgment in providing your response.
--- NOTE | 2024-02-03 10:42 | CM ---
Chart reviewed. Patient apprehensive about CT surgery. I will have a heart to heart volunteer come and talk with the patient. Patient is CABG vs PCI. Patient is independent of ADLS, lives in a [address], total of 5 TIFFANIE, 0 DME. Plan is to return
home. CM to follow
--- NOTE | 2024-02-03 12:41 | PTCARENOTE ---
Pt o2 sat 93% on RA while sitting OOB in chair this AM. Pt then c/o SOB this morning during ECHO, O2 sat 91% on 1L O2, O2 increased to 3L/ min so the Pt would be able to tolerate Echo. IV Lasix ordered and given around 0900. Pt voided >750 ml and is
feeling much better this afternoon
--- NOTE | 2024-02-03 14:25 | W.PN.HOSP.TC ---
Today's Communication/Plan
-
ct surgery eval for tripple vessel disaese
ASA, holding on brillinta
BB, ASA, statin
iv lasix today, dose daily monitoring BMP
Will need to be placed on GDMT due to acute HFrEF
Assessment / Plan
Assessment / Plan
Physical Exam
General: No pallor, cyanosis, or jaundice.
HEENT: Throat clear. PERRLA Normocephalic atraumatic
NECK: Supple. No JVD Carotid Bruits
RESPIRATORY: bibasilar crackles on nasal cannula oxygen supplementation
CVS: S1, S2 normal. RRR. No murmur, rub or gallop.
ABDOMEN: Soft, non-tender. No distension. BS+/normal.
EXTREMITIES: No peripheral cyanosis or edema.
MEAT SMOKER: AOx3
IMPRESSION:
78F CAD RCA stentsx2 2000 HTN HLD p/w progressive intermittent chest pain shortness of breath approx duration 4 days. Patient reported symptoms started with a 'head cold' with associate fever 101. Fever since resolved, patient was prompted to
visit ED when she developed significant shortness of breath over night unable to lie flat. Denies weight gain leg swelling. Chest pain was described as central/sternal pressure intermittent never lasting more than a few minutes at a time. BP soft
low normotensive. Afebrile. Patient was noted desaturating on room air 82% requiring nasal cannula supplementation. CXR suggest pulm edema. Troponin elevated 0.959 and BNP 06539.
PLAN:
#NSTEMI
#Intermittent chest pain
#Acute Respiratory Failure 2/2 Heart failure as above
#HTN
#HLD
Cardio eval appreciated cont hep gtt, nitro gtt, ASA 81 mg daily, Metoprolol XL 25 mg BID
LHC: Triple Vessel Disease - CT surgery eval
trop peak 1.9
statin
COVID neg, Flu neg
O2 supplementation prn goal sat 92%
#Ischemic Cardiomyopathy
##Acute HFrEF (35-40%)
-BB, ASA, statin
-Will need GDMT
-see plan above
-IV lasix today and monitor renal function
Possible RCAHEAL vs CKD III
-patient does endorse hx Chronic Kidney Disease but doesn't know her baseline Cr or what stage she was diagnosed
--Cont on Lasix - monitor renal function
hx HTN
home antihypertensives on hold while on nitro gtt as above
BB
#Non-insulin dependent DM
reports prior use ozempic since discontinued
on Actos at home
hold home oral diabetic medications for now
Follow up AM A1c: 5.6
dvt ppx : hsq
gi ppx Protonix
Full Code
Total time spent on today's encounter was 51 minutes which included time spent in counseling the patient/family regarding diagnosis and treatment plan as listed above, goals of care, and symptom management. Case was discussed with nursing staff,
specialists, and care coordinators/case management. All labs and imaging personally reviewed by me. Remainder the time spent in detailed review of previous records, lab data, imaging, and other medical provider documentation.
Anticipated Discharge: > 48 hours
Subjective/Interval History
-
Date of Service: February 03, 2024
Severe triple-vessel disease on left heart cath 02/01, pending surgery evaluation
Objective Data
-
Labs:
Laboratory Results
02/03/24
03:29
WBC 8.6
Hgb 9.5 L
Hct 27.0 L
Plt Count 249
Sodium 138
Potassium 4.3
Chloride 106
Carbon Dioxide 22
BUN 39 H
Creatinine 1.2 H
Glucose 160 H
Calcium 8.3 L
Vital Signs:
Vital Signs
Temp Pulse Resp BP Pulse Ox
97.7 F 72 16 137/56 92
02/03/24 10:40 02/03/24 10:40 02/03/24 10:40 02/03/24 07:47 02/03/24 10:40
I&O
02/02/24 02/03/24 02/04/24
06:59 06:59 06:59
Intake Total 120 / 120 294 / 294
Output Total 2650 / 2650 800 / 800
Balance -2530 / -2530 -506 / -506
Review of Systems
-
History Source: Patient
All other systems: Not reviewed unless documented
Data Reviewed
-
Diagnostic Radiology: Image personally visualized and interpreted and Report Reviewed by me
Labs: Labs Reviewed by me
--- NOTE | 2024-02-03 14:47 | W.PN.UPDATE ---
Update Note
Progress Note Update
Procedure Type:�CABG + MVR
PERIOPERATIVE OUTCOME ESTIMATE %
Operative Mortality 18.5%
Morbidity & Mortality 52.2%
Stroke 3.86%
Renal Failure 20.2%
Reoperation 12.5%
Prolonged Ventilation 44.7%
Deep Sternal Wound Infection 0.646%
Long Hospital Stay (>14 days) 43.5%
Short Hospital Stay (<6 days)* 1.96%
Clinical Summary
Planned Surgery: CABG + MVR, Concomitant Tricuspid Repair, Urgent, First cardiovascular surgery
Demographics: 78 year old, female, 65.7kg, 155cm, BMI: 27.4 kg/m�
Lab Values: Creatinine: 1.2 mg/dL, Hematocrit: 27%, WBC Count: 8.6 10�/�L, Platelet Count: 758560 cells/�L
Substance Abuse: Former smoker, Alcohol use: <=1 drink/week
Risk Factors / Comorbidities: Diabetes Mellitus , Hypertension, Family Hx of CAD
Cardiac Status: Acute and chronic heart failure, NYHA Class II, Ejection Fraction = 35%
Coronary Artery Disease: 3 vessels diseased, Proximal LAD Stenosis >=70%, Non-ST Elevation PR, PR: 1 to 7 Days
Valve Disease: Severe MR, Severe TR
Prev. Cardiac Interv: Previous PCI: Not at this facility
Pt with significantly elevated morbidity and mortality risk for MVR/TVr/CABG, recommend she proceed with interventional cards for PCI. No surgery being offered to her at this time, we will sign off.
[2024-02-03] MEDS: HEPARIN 5000 UNITS SC ×2 (16:42→23:31)
[2024-02-03] MEDS: CRESTOR 20 MG PO (17:29)
--- NOTE | 2024-02-03 17:42 | W.PN.UPDATE ---
Update Note
Progress Note Update
Patient discussed with Dr. Godoy from CT surgery and not felt to be a good candidate for CABG given poor targets and age/comorbidities. Will start ticagrelor and GDMT for heart failure and plan for PCI to LCx on 02/04.
[2024-02-03] MEDS: BRILINTA 180 MG PO (18:02)
[2024-02-03] MEDS: ENTRESTO 24 MG/26 MG 1 TAB PO (19:52)
[2024-02-03] MEDS: ATIVAN 0.25 MG PO (22:39)
[2024-02-04 04:05] VITALS: BP 130/49
[2024-02-04 04:16] VITALS: BMI 27.1
[2024-02-04 04:54] LABS: Hematocrit 28.3 % (37.0-47.0); Hemoglobin 9.4 g/dL (12.0-16.0); Mean Corp Hgb Conc. 33.2 g/dL (33.0-37.0); Mean Corpuscular Hgb 29.7 pg (27.0-31.0); Mean Corpuscular Volume 89.6 fL (81.0-99.0); Mean Platelet Volume 9.3 fL (7.4-10.4); Platelet Count 277 10^3/uL (130-400); Red Blood Cell Count 3.16 10^6/uL (4.20-5.40); Red Cell Dist. Width 11.9 % (11.5-14.5); White Blood Cell Count 7.7 10^3/uL (4.8-10.8)
[2024-02-04 05:23] LABS: Blood Urea Nitrogen 37 mg/dl (7-17); Calcium 8.5 mg/dl (8.4-10.2); Carbon Dioxide 22 mmol/L (22-30); Chloride 107 mmol/L (98-107); Estimated Creatinine Clearance 30 ml/min; Glucose 151 mg/dl (70-99); Magnesium 1.9 mg/dl (1.6-2.3); Phosphorus 3.7 mg/dl (2.5-4.5); Potassium 3.8 mmol/L (3.5-5.1); Sodium 141 mmol/L (135-145); eGFR 41.57
--- NOTE | 2024-02-04 05:27 | PTCARENOTE ---
Pt has been anxious for most of the beginning of shift. METER TESTER POLYPHASE television service engineer was notified. Ativan 0.25 mg PO was order. Pt was able to sleep and her anxiety was more under control. Pt is AAOx3. Pt remains on 3L NC, dyspneic w/ exertion. Will wean O2 down as
tolerated.
[2024-02-04 06:46] VITALS: BP 120/81
--- NOTE | 2024-02-04 08:00 | PTCARENOTE ---
Assumed care of pt from prev nsg shift AAOx3 w/no c/o CP or SOB. Pt is Dyspneic on exertion but recovers easily at rest. SpO2 on 3L 99%. VS stable this AM w/HR in the 60's & BP 120/81. Pt is SR w/prol QT on telemetry monitoring. Pt does report being
'very anxious regarding plan of care' & asking about Ativan as needed; pt advised to ask the Drs about whether she can have it. Pt w/call rosas within reach & no addtl needs at this time.
--- NOTE | 2024-02-04 08:15 | W.PN.CD ---
Today's Communication / Plan
-
plan for PCI tomorrow
Impression / Plan
-
78 yo female with PMHx of CAD, prior distal RCA stents 2000, HTN, hyperlipidemia presents to ED with SOB and chest tightness, found to have NSTEMI with peak troponin 1.9, now status post cardiac catheterization with severe triple vessel disease.
#NSTEMI
#CAD s/p RCA stents in 2000
-cath with triple vessel disease including proximal LCx, long segment LAD disease, and RPLDA/RPL disease
-high risk for surgery; plan will be PCI to Lcx tomorrow
-ASA, Brilinta
#ICM, EF 30-35%
-now on Toprol XL 25mg bid, entresto 24/26mg bid
-case mgmt pricing for SGLT2i
-eventual aldactone, but will wait until after cath
# Acute HFrEF
-improved s/p IV lasix
# Valvular HD
-moderate/severe MR and TR
-will reassess after PCI and GDMT
-potential MitraClip candidate in future
# HTN
-meds changed to GDMT
-now on Toprol XL 25mg bid, entresto 24/26mg bid
# Hyperlipidemia
-LDL 37
-cont. rosuvastatin
Physical Exam
Vital Signs/Labs
Vital Signs
Temp Pulse Resp BP Pulse Ox
98.0 F 65 18 120/81 99
02/04/24 06:49 02/04/24 06:46 02/04/24 06:49 02/04/24 06:46 02/04/24 06:49
02/03/24 02/04/24 02/05/24
06:59 06:59 06:59
Actual Weight 65.7 kg 65.1 kg
02/04/24 04:14
02/04/24 04:14
APTT Cancelled 02/02/24 11:55
Magnesium 1.9 mg/dl (1.6-2.3) 02/04/24 04:14
Triglycerides 133 mg/dl (10-149) 02/01/24 02:51
LDL Cholesterol, Calc 37 mg/dl 02/01/24 02:51
VLDL Cholesterol, Calc 26 mg/dl (0-30) 02/01/24 02:51
HDL Cholesterol 37 mg/dl 02/01/24 02:51
01/31/24
09:52
[id number] Pept [id number]
Physical Exam
Constitutional: No acute distress and Comfortable
EENT: Moist mucous membranes
Cardiovascular: Rhythm & rate is regular, Pedal edema is absent, JVD pressure is normal and Systolic murmur present
Respiratory: Respiratory effort normal and Lungs clear to auscul.
Neuro/Psych: AO x 3
Data Reviewed
-
Date of Service: February 04, 2024
EKG: Other (Tele: sinus rhythm)
Labs: Labs Reviewed by me
[2024-02-04] MEDS: HEPARIN 5000 UNITS SC ×3 (09:14→23:28)
[2024-02-04] MEDS: NON-FORMULARY ITEM 1 UNIT PO ×2 (09:15→19:35)
[2024-02-04] MEDS: LOW STRENGTH ASPIRIN 81 MG PO (09:15)
[2024-02-04] MEDS: BRILINTA 90 MG PO ×2 (09:15→19:34)
[2024-02-04] MEDS: TOPROL XL 25 MG PO ×2 (09:15→19:34)
[2024-02-04] MEDS: ENTRESTO 24 MG/26 MG 1 TAB PO ×2 (09:16→19:35)
[2024-02-04] MEDS: PROTONIX 40 MG PO (09:16)
--- NOTE | 2024-02-04 09:28 | CM ---
Addendum entered by Cherie Atkinson RN 02/04/24 10:59:
Patient is agreeable to cost. I will place a free 30 day coupon in the patient's red discharge folder.
Original Note:
Pricing on Brilinta 90mg BID through the [facility], ID#[id number], is $110 for a 30 day supply.
Farxiga 10mg daily is $150 for a 30 day supply
Jardiance 10mg daily is $148 for a 30 day supply.
--- NOTE | 2024-02-04 11:00 | CM ---
Chart reviewed. Patient is independent of ADLS, lives with her in a 2 STH, total of 5 TIFFANIE, 0 DME. Patient not a candidate for CABG. Plan PCI. Plan is for the patient to return home. CM to follow.
--- NOTE | 2024-02-04 11:20 | PTCARENOTE ---
Pt called this RN in to see her; Pt reporting feeling 'increased anxiety after speaking w/HF educator'. Pt's O2 sat 92% on RA. Pt appears SOB at rest w/her anxiety. O2 2L via NC placed on pt for comfort. Emotional support provided. Hospitalist in to
see pt & pt spoke w/MD re: something for anxiety. Awaiting further orders.
[2024-02-04 11:46] VITALS: BP 99/71
[2024-02-04] MEDS: XANAX 0.25 MG PO ×2 (12:19→20:57)
--- NOTE | 2024-02-04 14:33 | W.PN.HOSP.TC ---
Today's Communication/Plan
-
PCI tomorrow
Aspirin, Brilinta, beta-larissa, Entresto
Pricing for SGLT2i
Assessment / Plan
Assessment / Plan
Physical Exam
General: No pallor, cyanosis, or jaundice.
HEENT: Throat clear. PERRLA Normocephalic atraumatic
NECK: Supple. No JVD Carotid Bruits
RESPIRATORY: bibasilar crackles on nasal cannula oxygen supplementation
CVS: S1, S2 normal. RRR. No murmur, rub or gallop.
ABDOMEN: Soft, non-tender. No distension. BS+/normal.
EXTREMITIES: No peripheral cyanosis or edema.
ATOMIC PROCESS ENGINEER: AOx3
IMPRESSION:
78F CAD RCA stentsx2 2000 HTN HLD p/w progressive intermittent chest pain shortness of breath approx duration 4 days. Patient reported symptoms started with a 'head cold' with associate fever 101. Fever since resolved, patient was prompted to
visit ED when she developed significant shortness of breath over night unable to lie flat. Denies weight gain leg swelling. Chest pain was described as central/sternal pressure intermittent never lasting more than a few minutes at a time. BP soft
low normotensive. Afebrile. Patient was noted desaturating on room air 82% requiring nasal cannula supplementation. CXR suggest pulm edema. Troponin elevated 0.959 and BNP 89105.
PLAN:
#NSTEMI
#Intermittent chest pain
#Acute Respiratory Failure 2/2 Heart failure as above
#HTN
#HLD
Cardio eval appreciated cont hep gtt, nitro gtt, ASA 81 mg daily, Metoprolol XL 25 mg BID
LHC: Triple Vessel Disease - CT surgery eval�high risk for surgery; plan for PCI to left circumflex tomorrow
Continue aspirin, Brilinta
trop peak 1.9
statin
COVID neg, Flu neg
O2 supplementation prn goal sat 92%
#Ischemic Cardiomyopathy
#Acute HFrEF (35-40%)
-BB, ASA, statin, Entresto
-Will need GDMT - pricing for SGLT2i
-see plan above
-IV lasix 10.8 - hold further diuretics for LHC
Possible RACHEAL vs CKD III
-patient does endorse hx Chronic Kidney Disease but doesn't know her baseline Cr or what stage she was diagnosed
--Cont on Lasix - monitor renal function
hx HTN
home antihypertensives on hold while on nitro gtt as above
BB
#Non-insulin dependent DM
reports prior use ozempic since discontinued
on Actos at home
hold home oral diabetic medications for now
Follow up AM A1c: 5.6
dvt ppx : hsq
gi ppx Protonix
Full Code
Anticipated Discharge: 24 - 48 hours
Subjective/Interval History
-
Date of Service: February 04, 2024
Nonsurgical candidate, plan for PCI tomorrow
Objective Data
-
Labs:
Laboratory Results
02/04/24
04:14
WBC 7.7
Hgb 9.4 L
Hct 28.3 L
Plt Count 277
Sodium 141
Potassium 3.8
Chloride 107
Carbon Dioxide 22
BUN 37 H
Creatinine 1.3 H
Glucose 151 H
Calcium 8.5
Vital Signs:
Vital Signs
Temp Pulse Resp BP Pulse Ox
97.6 F 60 16 99/71 100
02/04/24 11:46 02/04/24 11:46 02/04/24 11:46 02/04/24 11:46 02/04/24 11:46
I&O
02/03/24 02/04/24 02/05/24
06:59 06:59 06:59
Intake Total 294 / 294 240 / 240 640 / 640
Output Total 800 / 800 700 / 700
Balance -506 / -506 -460 / -460 640 / 640
Review of Systems
-
History Source: Patient
All other systems: Not reviewed unless documented
Data Reviewed
-
Diagnostic Radiology: Image personally visualized and interpreted and Report Reviewed by me
Labs: Labs Reviewed by me
[2024-02-04 15:28] VITALS: BP 96/69
[2024-02-04] MEDS: CRESTOR 20 MG PO (17:16)
[2024-02-04 18:32] VITALS: BP 115/46
--- NOTE | 2024-02-04 21:24 | PTCARENOTE ---
Received patient at shift change. SB on the monitor, HR in the 50-60s. Pt complains of anxiety, PRN Xanax administered as per MAR. Discussed plan of care with pt, pt verbalizes understanding. Call rosas within reach.
[2024-02-04 23:27] VITALS: BP 101/49
[2024-02-05] VITALS (13 sets, daily range): BP systolic 85–137; BP diastolic 43–80; BMI 27.3
[2024-02-05 05:01] LABS: Hematocrit 28.5 % (37.0-47.0); Hemoglobin 9.7 g/dL (12.0-16.0); Mean Corpuscular Hgb 31.1 pg (27.0-31.0); Mean Corpuscular Volume 91.3 fL (81.0-99.0); Mean Platelet Volume 9.3 fL (7.4-10.4); Platelet Count 254 10^3/uL (130-400); Red Blood Cell Count 3.12 10^6/uL (4.20-5.40); White Blood Cell Count 6.5 10^3/uL (4.8-10.8)
[2024-02-05 05:26] LABS: Blood Urea Nitrogen 37 mg/dl (7-17); Calcium 8.2 mg/dl (8.4-10.2); Carbon Dioxide 23 mmol/L (22-30); Chloride 107 mmol/L (98-107); Estimated Creatinine Clearance 28 ml/min; Glucose 135 mg/dl (70-99); Phosphorus 4.2 mg/dl (2.5-4.5); Potassium 4.2 mmol/L (3.5-5.1); Sodium 141 mmol/L (135-145); eGFR 38.03
--- NOTE | 2024-02-05 08:36 | PTCARENOTE ---
Assumed care of pt from prev nsg shift AAOx3 w/no c/o CP or SOB. Pt is Dyspneic on exertion but recovers easily at rest. SpO2 on RA is 93%. VS stable this AM w/HR in the 60's & BP 111/43. Pt is SR w/prol QT on telemetry monitoring. Pt reports that
PRN Xanax for her anxiety is 'working very well' & she reports getting a good's nights sleep. Pt w/call rosas within reach & no addtl needs at this time. Plan of care ongoing.
[2024-02-05] MEDS: NON-FORMULARY ITEM 1 UNIT PO ×2 (09:33→19:58)
[2024-02-05] MEDS: FLUSH (NSS) 1 FLUSH IV (09:33)
[2024-02-05] MEDS: LOW STRENGTH ASPIRIN 81 MG PO (09:35)
[2024-02-05] MEDS: TOPROL XL 25 MG PO ×2 (09:35→19:57)
[2024-02-05] MEDS: PROTONIX 40 MG PO (09:35)
[2024-02-05] MEDS: XANAX 0.25 MG PO ×2 (09:35→22:32)
[2024-02-05] MEDS: BRILINTA 90 MG PO ×2 (09:36→19:57)
[2024-02-05] MEDS: HEPARIN 5000 UNITS SC (09:36)
[2024-02-05] MEDS: ENTRESTO 24 MG/26 MG 1 TAB PO ×2 (09:36→19:57)
--- NOTE | 2024-02-05 10:00 | CM ---
Chart reviewed. Patient is independent of ADLS, lives with her in a 2 STH, 5 TIFFANIE, 0 DME. Patient waiting to go to the labor gang supervisor for a PCI. Plan is for the patient to return home with [facility]. BONILLA to follow
--- NOTE | 2024-02-05 13:21 | PTCARENOTE ---
Report to Meera in the blood bank laboratory professional; pt transported in her bed to the oven laborer.
[2024-02-05 14:05] LABS: ACT-LR - POC 322 Seconds (116-155)
[2024-02-05 14:33] LABS: ACT-LR - POC 334 Seconds (116-155)
[2024-02-05 14:59] LABS: ACT-LR - POC 282 Seconds (116-155)
--- NOTE | 2024-02-05 15:47 | W.PN.HOSP.TC ---
Today's Communication/Plan
-
Single stent to the left circumflex with Shockwave lithotripsy
IVF
monitor respiratory status, renal function
Assessment / Plan
Assessment / Plan
Physical Exam
General: No pallor, cyanosis, or jaundice.
HEENT: Throat clear. PERRLA Normocephalic atraumatic
NECK: Supple. No JVD Carotid Bruits
RESPIRATORY: bibasilar crackles on nasal cannula oxygen supplementation
CVS: S1, S2 normal. RRR. No murmur, rub or gallop.
ABDOMEN: Soft, non-tender. No distension. BS+/normal.
EXTREMITIES: No peripheral cyanosis or edema.
ORAL AND MAXILLOFACIAL PATHOLOGIST: AOx3
IMPRESSION:
78F CAD RCA stentsx2 2000 HTN HLD p/w progressive intermittent chest pain shortness of breath approx duration 4 days. Patient reported symptoms started with a 'head cold' with associate fever 101. Fever since resolved, patient was prompted to
visit ED when she developed significant shortness of breath over night unable to lie flat. Denies weight gain leg swelling. Chest pain was described as central/sternal pressure intermittent never lasting more than a few minutes at a time. BP soft
low normotensive. Afebrile. Patient was noted desaturating on room air 82% requiring nasal cannula supplementation. CXR suggest pulm edema. Troponin elevated 0.959 and BNP 05794.
PLAN:
#NSTEMI
#Intermittent chest pain
#Acute Respiratory Failure 2/2 Heart failure as above
#HTN
#HLD
Cardio eval appreciated cont hep gtt, nitro gtt, ASA 81 mg daily, Metoprolol XL 25 mg BID
LHC: Triple Vessel Disease - CT surgery eval�high risk for surgery; Single stent to the left circumflex with Shockwave lithotripsy 02/04
Continue aspirin, Brilinta
trop peak 1.9
statin
COVID neg, Flu neg
O2 supplementation prn goal sat 92%
#Ischemic Cardiomyopathy
#Acute HFrEF (35-40%)
-BB, ASA, statin, Entresto
-Will need GDMT - pricing for SGLT2i
-see plan above
-IV lasix 10.8 - hold further diuretics for LHC
Possible RACHEAL vs CKD III
-patient does endorse hx Chronic Kidney Disease but doesn't know her baseline Cr or what stage she was diagnosed
--Holding lasix, giving fluids for contrast today
hx HTN
home antihypertensives on hold while on nitro gtt as above
BB
#Non-insulin dependent DM
reports prior use ozempic since discontinued
on Actos at home
hold home oral diabetic medications for now
Follow up AM A1c: 5.6
dvt ppx : hsq
gi ppx Protonix
Full Code
Anticipated Discharge: Within 24 hours
Subjective/Interval History
-
Date of Service: February 05, 2024
no acute events
Objective Data
-
Labs:
Laboratory Results
02/05/24
04:43
WBC 6.5
Hgb 9.7 L
Hct 28.5 L
Plt Count 254
Sodium 141
Potassium 4.2
Chloride 107
Carbon Dioxide 23
BUN 37 H
Creatinine 1.4 H
Glucose 135 H
Calcium 8.2 L
Vital Signs:
Vital Signs
Temp Pulse Resp BP Pulse Ox
98.5 F 64 20 122/52 98
02/05/24 11:18 02/05/24 11:17 02/05/24 11:18 02/05/24 11:17 02/05/24 11:18
I&O
02/04/24 02/05/24 02/06/24
06:59 06:59 06:59
Intake Total 240 / 240 640 / 640 60 / 60
Output Total 700 / 700 500 / 500
Balance -460 / -460 140 / 140 60 / 60
Review of Systems
-
History Source: Patient
All other systems: Not reviewed unless documented
Data Reviewed
-
Diagnostic Radiology: Image personally visualized and interpreted and Report Reviewed by me
Labs: Labs Reviewed by me
--- NOTE | 2024-02-05 16:01 | PTCARENOTE ---
Rec'd report from Meera; Rec'd pt back AAOx3 w/no c/o CP or SOB. Pt w/R groin site w/dressing C/D/I w/no signs or symptoms of bleeding or hematoma. Pt's VS stable w/HR in the 80's & BP 137/56 upon arrival. Pt is 97% on RA. Discussed activity
restrictions w/pt & spouse. Purewick placed while pt is bedrest. Pt w/call rosas within reach & plan of care ongoing.
[2024-02-05] MEDS: HEPARIN SC (16:40)
--- NOTE | 2024-02-05 17:29 | ITS.CL.PN ---
Marketing Data Specialist - Procedure Note
Procedure
Procedure Note:
CARDIAC CATHETERIZATION REPORT
Date of Procedure: 02/05/24
Referring: Dr. Adalberto Escobedo
Indication: NSTEMI
PROCEDURE:
1. Left heart catheterization
2. PCI with RICHI to the LCx
3. Shockwave lithotripsy
4. IVUS
ACCESS:
6 [place]oc[place] right common femoral artery (due to severe spasm during diagnostic cath)
CATHETERS:
1. 6 [place]oc[place] XB 3.5 guide catheter
2. 6 [place]oc[place] pigtail catheter
HEMODYNAMIC DATA
LV 157/18 (EDP 32)
AO 158/60 (mean 98)
INTERVENTIONS - IVUS-guided PCI, Shockwave lithotripsy facilitated PCI to the LCx with RICHI
Under ultrasound guidance and using a micropuncture kid, 6F right common femoral access was obtained. A 6F XB3.5 guide catheter was used to engaged the left main. Heparin was given to achieve and maintain ACT>250. A Runthrough coronary wire was
placed in the distal OM branch. A second Runthrough could not be passed to protect the continuation of the LCx. Initial balloon preparation was performed with a 1.5x10 mm Eurphora balloon (2.0 balloon would not pass) followed by the 2.0x12 mm
balloon. It was then possible to advance a second Runthrough wire to protect the LCx continuation. Further lesion preparation was performed with a 2.25x15 mm NC balloon. IVUS was then performed demonstrating severe calcification with multiple
segments of concentric calcification extending from the proximal to mid-LCx and a 2.75 mm reference vessel diameter. Shockwave lithotripsy was performed with a 2.5 mm Shockwave balloon with 90 pulses delivered and full expansion of the balloon
throughout the lesion length at 6 kaylen. Repeat IVUS demonstrated calcium fracture. A 2.75x26 [place] RICHI was selected and deployed at nominal pressure with excellent angiographic result and ROSEMARY 3 flow in the LCx continuation without compromise
of the branch. The protection wire was removed. The entire stent was then post-dilated with a 2.75 NC balloon to high pressure (18 kaylen throughout, 20 kaylen proximally). IVUS was repeated and demonstrated full expansion and apposition without edge
dissection. There remained a small region of focal relative under-expansion proximally but given that this had been treated with Shockwave lithotripsy and high pressure NC post-dilation, it was not felt that further post-dilation was be helpful. The
wire and guide were removed and a Angioseal placed after confirming DESPATCHING AND RECEIVING CLERK stick location with hand injection angiography. The patient was taken to recovery in stable condition.
Closure Device: 6F Angioseal
Radiation dose (mGy): 581.87
DAP (cm2.Gy): 36.4932
Fluoroscopy time (minutes): 26.3
CONCLUSIONS:
1. Elevated LV filling pressure and no aortic stenosis
2. Successful IVUS-guided, Shockwave-lithotripsy facilitated PCI to the LCx with placement of a 2.75x30 mm [place] RICHI post-dilated with a 2.75 NC balloon to high pressure.
RECOMMENDATIONS:
1. Expectant management after cardiac catheterization via right femoral artery approach
2. Post-cath fluids 1.5mL/kg/hr x 4 hours for JESUS prevention
3. Continue DAPT with ASA/ticagrelor for 1 year
4. High intensity statin for goal LDL<55
5. Further titration of GDMT pending AM Cr, continue current medications
6. Cardiac rehab post-discharge
Copy to: Dr. Adalberto Escobedo, Dr. Bruce Ramirez
Signed: Pradeep Holley MD, PhD
[2024-02-05] MEDS: CRESTOR 20 MG PO (19:58)
--- NOTE | 2024-02-05 22:21 | PTCARENOTE ---
Continued care of pt; Pt AAOx3 w/no c/o CP or SOB. Pt s/p cardiac cath today w/R groin dressing C/D/I w/no signs or symptoms of bleeding or hematoma. Pt w/VS stable w/HR in the 70's & BP this evening 131/54. Pt OOB x1P to BR w/no issues. Pt voided
650 mls clear, yellow urine from purewick & another large unmeasurable void in the toilet. Pt resting back in bed w/call rosas within reach.
--- NOTE | 2024-02-06 | PTCARENOTE ---
Received report from RN, assumed care of patient at 1900. Nursing assessment as documented, see worklist. SQ heparin given without difficulties. Warm blankets provided. Right fem site C/D/I. VSS, call rosas within reach, care ongoing.
[2024-02-06 00:02] VITALS: BP 132/57
[2024-02-06] MEDS: HEPARIN 5000 UNITS SC ×2 (00:03→07:51)
[2024-02-06 04:18] VITALS: BP 123/51
[2024-02-06 04:28] VITALS: BMI 27.0
[2024-02-06 04:43] LABS: Hematocrit 27.6 % (37.0-47.0); Hemoglobin 9.2 g/dL (12.0-16.0); Mean Corp Hgb Conc. 33.3 g/dL (33.0-37.0); Mean Corpuscular Hgb 30.7 pg (27.0-31.0); Mean Platelet Volume 9.4 fL (7.4-10.4); Platelet Count 250 10^3/uL (130-400); Red Cell Dist. Width 11.9 % (11.5-14.5); White Blood Cell Count 6.4 10^3/uL (4.8-10.8)
[2024-02-06 05:09] LABS: Blood Urea Nitrogen 30 mg/dl (7-17); Calcium 8.2 mg/dl (8.4-10.2); Carbon Dioxide 22 mmol/L (22-30); Chloride 110 mmol/L (98-107); Estimated Creatinine Clearance 32 ml/min; Glucose 147 mg/dl (70-99); Magnesium 1.9 mg/dl (1.6-2.3); Phosphorus 3.5 mg/dl (2.5-4.5); Potassium 3.8 mmol/L (3.5-5.1); Sodium 142 mmol/L (135-145); eGFR 45.76
[2024-02-06 06:00] VITALS: BMI 27.0
[2024-02-06 06:46] VITALS: BP 115/52
[2024-02-06] MEDS: TOPROL XL 25 MG PO (07:51)
[2024-02-06] MEDS: ENTRESTO 24 MG/26 MG 1 TAB PO (07:51)
[2024-02-06] MEDS: LOW STRENGTH ASPIRIN 81 MG PO (07:51)
[2024-02-06] MEDS: PROTONIX 40 MG PO (07:51)
[2024-02-06] MEDS: BRILINTA 90 MG PO (07:51)
[2024-02-06] MEDS: NON-FORMULARY ITEM 1 UNIT PO (07:52)
[2024-02-06] MEDS: XANAX 0.25 MG PO (07:59)
[2024-02-06 08:19] VITALS: BP 122/52
--- NOTE | 2024-02-06 11:42 | CM ---
Chart reviewed. Patient is independent of ADLS, lives with her in a 2 STH, total of 5 TIFFANIE, 0 DME. Plan is for the [facility]. CM to follow
[2024-02-06] MEDS: FARXIGA 10 MG PO (11:53)
[2024-02-06 12:06] VITALS: BP 140/49
[2024-02-06 12:07] VITALS: BP 134/49
--- NOTE | 2024-02-06 13:37 | W.DS.TRANS ---
DC Summary - Bank Vault Custodian
-
Discharge Instructions:
Sleep Apnea Risk Low
Discharge Diagnosis/Procedures NSTEMI, s/p lithotripsy with angioplasty and
stent to Left Circumflex artery
Diet Low Sodium,Low Cholesterol,Low Fat,Diabetic,
Carb Controlled
Activity As tolerated
Driving Restrictions No driving for 24 hours
Blood Work cbc, cmp within 3-5 days with pcp/cardiology
Other Services Cardiac Rehab
Instructions: *PCP/Other Fur Tailor Heart Failure Instructions
Stand-Alone Forms: DC Instructions- Cath/EP Lab
Changes to Home Medications: Yes
Discharge Medications:
DC Medications w/original date entered in [facility]
pioglitazone 30 mg tablet 30 mg PO DAILY Diabetes 01/31/24
vit C 250 mg-vit E 90 mg-zinc 40 mg-copper 1 [id number] capsule (PreserVision AREDS-2) 1 tab PO BID Supplement 01/31/24
aspirin 81 mg chewable tablet 81 mg PO DAILY #90 tabs 02/06/24
dapagliflozin propanediol 10 mg tablet 10 mg PO DAILY 30 days #30 tabs 02/06/24
metoprolol succinate 25 mg tablet,extended release 24 hr 25 mg PO BID 30 days #60 tabs 02/06/24
rosuvastatin 20 mg tablet 20 mg PO QPM 30 days #30 tabs 02/06/24
sacubitril 24 mg-valsartan 26 mg tablet (Entresto) 1 tab PO BID 30 days #60 tabs 02/06/24
ticagrelor 90 mg tablet (Brilinta) 90 mg PO BID #180 tabs 02/06/24
Home Medication Changes
dapagliflozin propanediol 10 mg tablet 10 mg PO DAILY 30 days #30 tabs 02/06/24
metoprolol succinate 25 mg tablet,extended release 24 hr 25 mg PO BID 30 days #60 tabs 02/06/24
rosuvastatin 20 mg tablet 20 mg PO QPM 30 days #30 tabs 02/06/24
sacubitril 24 mg-valsartan 26 mg tablet (Entresto) 1 tab PO BID 30 days #60 tabs 02/06/24
ticagrelor 90 mg tablet (Brilinta) 90 mg PO BID #180 tabs 02/06/24
Pending Results: No
--- NOTE | 2024-02-06 14:20 | W.PN.CD ---
Today's Communication / Plan
-
discharge today with cardiology follow up
Impression / Plan
-
78 yo female with PMHx of CAD, prior distal RCA stents 2000, HTN, hyperlipidemia presents to ED with SOB and chest tightness, found to have NSTEMI with peak troponin 1.9, now status post cardiac catheterization with severe triple vessel disease.
#NSTEMI
#CAD s/p RCA stents in 2000
-cath with triple vessel disease including proximal LCx, long segment LAD disease, and RPLDA/RPL disease
-status post-PCI to LCx 02/05 (likely infarct related artery)
-plan to medically manage remaining CAD
#ICM, EF 30-35%
-now on Toprol XL 25mg bid, entresto 24/26mg bid, dapa 10 mg
-eventual aldactone
# Acute HFrEF
-improved s/p IV lasix
# Valvular HD
-moderate/severe MR and TR
-will reassess after PCI and GDMT
-potential MitraClip candidate in future
# HTN
-meds changed to GDMT
# Hyperlipidemia
-LDL 37
-cont. rosuvastatin
Physical Exam
Vital Signs/Labs
Vital Signs
Temp Pulse Resp BP Pulse Ox
36.6 C 71 16 134/49 98
02/06/24 12:04 02/06/24 12:07 02/06/24 12:04 02/06/24 12:07 02/06/24 12:04
02/05/24 02/06/24 02/07/24
06:59 06:59 06:59
Actual Weight 65.4 kg 64.7 kg
02/06/24 04:24
02/06/24 04:24
APTT Cancelled 02/02/24 11:55
Magnesium 1.9 mg/dl (1.6-2.3) 02/06/24 04:24
Triglycerides 133 mg/dl (10-149) 02/01/24 02:51
LDL Cholesterol, Calc 37 mg/dl 02/01/24 02:51
VLDL Cholesterol, Calc 26 mg/dl (0-30) 02/01/24 02:51
HDL Cholesterol 37 mg/dl 02/01/24 02:51
01/31/24
09:52
Kcm-Z-Isrdxszgrmb Pept [id number]
Physical Exam
Constitutional: No acute distress and Comfortable
Cardiovascular: Rhythm & rate is regular, Pedal edema is absent, JVD pressure is normal, Systolic murmur absent and Diastolic murmur absent
Respiratory: Respiratory effort normal and Lungs clear to auscul.
Neuro/Psych: Alert, Oriented and AO x 3
Data Reviewed
-
Date of Service: February 06, 2024
Medical Decision Making: Reviewed Test Results
EKG: Tracing Personally Visualized and interpreted and Report Reviewed by me
Echo: Report Reviewed by me
X-Ray/CT/US/MRI/NUC/PET: Report Reviewed by me
Labs: Labs Reviewed by me
--- NOTE | 2024-02-06 14:30 | W.CARD.POSTP ---
Post PCI Follow Up
Procedure
Procedure/Date: 02/05/24- successful IVUS-guided, Shockwave-lithotripsy facilitated PCI to the LCx w/RICHI x1
Subjective: no cp/palps/dyspnea
Site
Site: Femoral with Internal Closure Device: Right and No ht/bleeding, distal pulses palpable
Tele / EKG
NSR 80s w/lateral TWI c/w evolving DE, no VT/arrhythmia
Labs
02/06/24 04:24
02/06/24 04:24
APTT Cancelled 02/02/24 11:55
Magnesium 1.9 mg/dl (1.6-2.3) 02/06/24 04:24
Triglycerides 133 mg/dl (10-149) 02/01/24 02:51
LDL Cholesterol, Calc 37 mg/dl 02/01/24 02:51
VLDL Cholesterol, Calc 26 mg/dl (0-30) 02/01/24 02:51
HDL Cholesterol 37 mg/dl 02/01/24 02:51
01/31/24
09:52
Xoe-A-Kyalrdjeiby Pept [id number]
DAPT Medication
DAPT Medication: Aspirin 81mg daily and Tricagrelor 90 mg BID
Case Management checking lobo: Yes
Plan
NSTEMI
s/p lithotripsy w/angioplasty and RICHI to LCx
DAPT w/asa, brilinta- agreeable to cost- see CM note
creat stable post dye load
cardiac rehab
Cardiology followup- 2-[address] Rao
--- NOTE | 2024-02-06 15:29 | CM ---
Pricing on Entresto through the patient's prescription plan is $167 for a 30 day. Patient expressed concern about being in the donut hole. I gave the patient a free 30 day coupon. I also gave the patient applications for assistance with
[employer], [employer] and [employer]. Patient's gross income is less than $60,000. Dr Holley completed all 3 applications. Patient wanted to do her portion at home and is going to fax it in or mail it in. Hosptalist and cardiology aware.
--- NOTE | 2024-02-06 15:50 | PTCARENOTE ---
Pt received this am with no c/o of chest pain or sob. Right groin site dressing dry and intact with no hematoma noted. Pt oob ad victoria in the room, gait steady. Pt discharged to home with her . Discharge instructions given and reviewed with pt
and her with good understanding and all questions answered.
--- NOTE | 2024-02-06 16:54 | W.PN.HOSP.TC ---
Addendum entered and electronically signed by Ming Almaguer MD 02/08/24 16:30:
Respiratory failure with hypoxia - 22/ to acute HFrEF
Addendum entered and electronically signed by Ming Almaguer MD 02/06/24 16:58:
[id number]
Original Note:
Today's Communication/Plan
-
GDMT
DAPT
statin
f/u cards outpatient with bmp
Assessment / Plan
Assessment / Plan
Physical Exam
General: No pallor, cyanosis, or jaundice.
HEENT: Throat clear. PERRLA Normocephalic atraumatic
NECK: Supple. No JVD Carotid Bruits
RESPIRATORY: bibasilar crackles on nasal cannula oxygen supplementation
CVS: S1, S2 normal. RRR. No murmur, rub or gallop.
ABDOMEN: Soft, non-tender. No distension. BS+/normal.
EXTREMITIES: No peripheral cyanosis or edema.
NATURAL FABRICATOR: AOx3
IMPRESSION:
78F CAD RCA stentsx2 2000 HTN HLD p/w progressive intermittent chest pain shortness of breath approx duration 4 days. Patient reported symptoms started with a 'head cold' with associate fever 101. Fever since resolved, patient was prompted to
visit ED when she developed significant shortness of breath over night unable to lie flat. Denies weight gain leg swelling. Chest pain was described as central/sternal pressure intermittent never lasting more than a few minutes at a time. BP soft
low normotensive. Afebrile. Patient was noted desaturating on room air 82% requiring nasal cannula supplementation. CXR suggest pulm edema. Troponin elevated 0.959 and BNP 96352.
PLAN:
#NSTEMI
#Intermittent chest pain
#Acute Respiratory Failure 2/2 Heart failure as above
#HTN
#HLD
Cardio eval appreciated cont hep gtt, nitro gtt, ASA 81 mg daily, Metoprolol XL 25 mg BID
LHC: Triple Vessel Disease - CT surgery eval�high risk for surgery; Medically manage - Single stent to the left circumflex with Shockwave lithotripsy 02/04
Continue aspirin, Brilinta
trop peak 1.9
statin
COVID neg, Flu neg
O2 supplementation prn goal sat 92%
#Ischemic Cardiomyopathy
#Acute HFrEF (35-40%)
-BB, ASA, statin, Entresto
-Will need GDMT - pricing for SGLT2i
-see plan above
-IV lasix 10.8 - hold further diuretics for LHC
-started of Dapa 10mg
Possible RACHEAL vs CKD III
-patient does endorse hx Chronic Kidney Disease but doesn't know her baseline Cr or what stage she was diagnosed
--Holding lasix, giving fluids for contrast today
hx HTN
meds changed to GDMT
#Non-insulin dependent DM
reports prior use ozempic since discontinued
on Actos at home
Follow up AM A1c: 5.6
dvt ppx : hsq
gi ppx Protonix
Full Code
More than 30 minutes spent in discharge including
Final examination of the patient
Summarizing hospital stay
Instructions for continuing care to all relevant caregivers
Preparation of discharge records, prescriptions, and referral forms
Total time spent (35 in minutes):
Anticipated Discharge: Today
Subjective/Interval History
-
Date of Service: February 06, 2024
s/p pci
Objective Data
-
Labs:
Laboratory Results
02/06/24
04:24
Sodium 142
Potassium 3.8
Chloride 110 H
Carbon Dioxide 22
BUN 30 H
Creatinine 1.2 H
Glucose 147 H
Calcium 8.2 L
Vital Signs:
Vital Signs
Temp Pulse Resp BP Pulse Ox
97.9 F 71 16 134/49 98
02/06/24 12:04 02/06/24 12:07 02/06/24 12:04 02/06/24 12:07 02/06/24 12:04
I&O
02/05/24 02/06/24 02/07/24
06:59 06:59 06:59
Intake Total 640 / 640 60 / 60
Output Total 500 / 500 775 / 775
Balance 140 / 140 -715 / -715
Review of Systems
-
History Source: Patient
All other systems: Not reviewed unless documented
Data Reviewed
-
Diagnostic Radiology: Image personally visualized and interpreted and Report Reviewed by me
Medical Tests (Nuc Med, Echo etc): Image personally visualized and interpreted
Labs: Labs Reviewed by me
[2024-02-06 20:02] LABS: Lipoprotein a (Lp a) 7 mg/dL (<=29)
== END 2024-02-06 15:53 | disposition home or self-care (01) | DRG 323 ==
LOC: IVU 13:14
PROVIDERS: Student in an Organized Health Care Education/Training Program; Urology; ADMITTING PHYSICIAN Internal Medicine; ATTENDING PHYSICIAN Internal Medicine; CONSULT PHYSICIAN Internal Medicine; CONSULT PHYSICIAN Thoracic Surgery (Cardiothoracic Vascular Surgery); EMERGENCY PHYSICIAN Emergency Medicine; FAMILY PHYSICIAN Family Medicine
PROC: B2111ZZ Fluoroscopy of Multiple Coronary Arteries using Low Osmolar Contrast (ICD-10-PCS; 2024-02-05)
PROC: 027034Z Dilation of Coronary Artery, One Artery with Drug-eluting Intraluminal Device, Percutaneous Approach (ICD-10-PCS; 2024-02-05)
PROC: B240ZZ3 Ultrasonography of Single Coronary Artery, Intravascular (ICD-10-PCS; 2024-02-05)
PROC: 02F03ZZ Fragmentation in Coronary Artery, One Artery, Percutaneous Approach (ICD-10-PCS; 2024-02-05)
PROC: 4A023N8 Measurement of Cardiac Sampling and Pressure, Bilateral, Percutaneous Approach (ICD-10-PCS; 2024-02-05)
DX: I21.4 Non-ST elevation (NSTEMI) myocardial infarction (principal); I50.21 Acute systolic (congestive) heart failure; J96.01 Acute respiratory failure with hypoxia; N17.9 Acute kidney failure, unspecified; I13.0 Hypertensive heart and chronic kidney disease with heart failure and stage 1 through stage 4 chronic kidney disease, or unspecified chronic kidney disease; E78.00 Pure hypercholesterolemia, unspecified; I25.10 Atherosclerotic heart disease of native coronary artery without angina pectoris; I25.5 Ischemic cardiomyopathy; I27.20 Pulmonary hypertension, unspecified; Z79.82 Long term (current) use of aspirin; Z87.891 Personal history of nicotine dependence; N18.30 Chronic kidney disease, stage 3 unspecified; E11.22 Type 2 diabetes mellitus with diabetic chronic kidney disease; Z11.52 Encounter for screening for COVID-19
CPT/HCPCS: 71046; 80048; 80061; 83036; 83695; 83735; 83880; 84100; 84484; 85025; 85027; 85347; 85730; 87502; 87811; 92978; 93005; 93306; 93452; 93460; 96365; 96366; 96367; 96375; 99291; C1725; C1753; C1760; C1761; C1874; C1887; C1894; C9600; Q9967

== ENCOUNTER → 2024-05-14 09:55 | Outpatient (REF) | payer OTHER, SELFPAY | LOC: HWRCS 09:55 | PROVIDERS: ATTENDING PHYSICIAN Student in an Organized Health Care Education/Training Program; FAMILY PHYSICIAN Family Medicine | DX: I21.4 Non-ST elevation (NSTEMI) myocardial infarction (principal); I25.10 Atherosclerotic heart disease of native coronary artery without angina pectoris; I50.20 Unspecified systolic (congestive) heart failure; I25.5 Ischemic cardiomyopathy | CPT/HCPCS: 93306 ==

== ENCOUNTER 2024-07-13 15:29 | Inpatient (IN) | payer OTHER, SELFPAY ==
[2024-07-13] VITALS (13 sets, daily range): BP systolic 119–171; BP diastolic 40–62; PULSE 66–69; BMI 28.4
--- NOTE | 2024-07-13 11:29 | ED.GENMED ---
History of Present Illness
General
Chief Complaint: Rectal Bleeding
Source: patient
Exam Limitations: none
Time Seen by Provider: 07/13/24 10:38
Nursing documentation reviewed up to this point in time: agreed with
History of Present Illness
History of Present Illness:
78 y/o F with h/o anxiety, anemia, CAD with stents
macular degeneration
here with multiple sypmtoms
mostly concerned about BRBPR this morning after BM; ptssays she sometimes does strain due to her iron tabs but she wasn't particularly straining too badly this mornig and when she wiped she saw blood
she has not had any abdomianl pain
last week 6 days ago (07/07) she started with floaters L eye superior vision
the following day she saw her retinal specialist 07/08 who said she had a 'small bleed in the back of my eye'
no retinal detachment
no hole
she was told to sleep with head of bed elevated and to f/u today
and also speak with cards about stopping brillinta
she spoke with dr. méndez on 07/09 and stopped the brillinta 07/10
ever since stopping the brillinta she feels a little SOB and anxious
she feels palpitaiotns (fast rate)
without chest pain, syncope, fever
but then today after BM she had the bleeding, she is more and more anxious
pt says she has had no worsening symptoms in her L eye
Past History
Past History
ED Past Medical History: CAD
Social History
Tobacco: Non-smoker
Review of Systems
Review of Systems
Allergies reviewed?: Yes
All Other Systems: Not applicable
Phy Exam
Physical Exam
Physical Exam:
GENERAL: Alert , in no apparent distress, anxious, tearful
EYE: pupils equal and reactive
NECK: Supple
ENT: o/p clr, mmm.
CARDIAC: Regular rate and rhythm .no edema
LUNGS: Clear breath sounds bilaterally, no acute respiratory distress, no wheezes/rales/rhonchi
ABDOMEN: Soft, without focal tenderness, no r/g, no cvat, normal bowel sounds
no obviou shemorrhoids
nontender
blood in vault
no active bleeding
NEUROLOGICAL: Alert and oriented, no focal neuro deficits
SKIN: Warm and dry, skin intact.
MUSCULOSKELETAL: No edema, well perfused. neg александр's sign
PSYCH: Normal and appropriate interaction.
Course
Orders/Labs/Results
Orders:
Orders
07/13/24 11:08
0.9% Sodium Chloride 500 ml [Nss] 500 ml IV BOLUS
07/13/24 11:10
Electrocardiogram (*1) Urgent
Reason for Study: Shortness of Breath
EKG- Treatment ONCE
07/13/24 11:32
Lactic Acid Urgent
NT-proBNP Urgent
PTT Urgent
Prothrombin Time Urgent
Troponin I Urgent
07/13/24 11:39
Add On- LAB Urgent
Tests Added?: BNP
07/13/24 11:43
Complete Blood Count/With Diff Urgent
07/13/24 11:46
Urinalysis Reflex To Culture Urgent
Date Specimen was Collected: 07/13/24
Time Specimen was Collected: 11:45
Urine Microscopic Reflex Cult Urgent
Urine Culture Urgent
MAUREEN Source: U
Specimen Description:
Date Specimen was Collected: 07/13/24
Time Specimen was Collected: 11:45
07/13/24 12:20
ABO2 Urgent
BBK Wristband Number:
Associate notified that ABO2 has been ordered: [id number]
Date: 07/13/24
Time: 12:35
Engineering Writer ID: [id number]
Comprehensive Metabolic Panel Urgent
Ferritin Urgent
Folate Urgent
Iron Urgent
Total Iron Binding Urgent
Vitamin B12 Urgent
07/13/24 13:06
* Blood Bank Products Urgent
Blood Bank Products: *Packed RBC Leuko(PRBC's)
Quantity: 1
Transfuse Today: Yes
Reason: Anemia
07/13/24 13:30
Type+Screen Routine
BBK Wristband Number:
07/13/24 13:35
* Blood Bank Products Urgent
Blood Bank Products: *Packed RBC Leuko(PRBC's)
Quantity: 1
Transfuse Today: Yes
Reason: Anemia
07/13/24 13:36
Alprazolam [Xanax] 0.25 mg PO NOW STA
07/13/24 14:31
Add On- LAB Routine
Tests Added?: iron, TIBC, % sat, ferritin, B12, folate
07/13/24 14:52
Admit/Transfer Patient As Directed
Co-Sign Provider:
Level of Care: Inpatient admission
Assign to:: IMU- Intermediate Care
Physician / Group: jessie bingham
Diagnosis: GI bleed
Reason for Hospitalization: GI bleed
Expected length of stay greater than two midnights?: Yes
ELOS- Estimated Length of Stay in days: 3
I certify the patient meets the requirements for IP care: Yes
07/13/24 14:53
PRN Pain Medication Management As Directed
May give lesser potent ordered pain med per pt: Yes
preference::
Protocol:: Medication orders for pain may be administered in a
manner that supports deferring to patient preference
when the pt is:
- Requesting an ordered lesser potent pain medication.
Least to most potent pain medications are defined
as: acetaminophen < NSAID < tramadol < opioids
(morphine, oxycodone, hydromorphone).
- Requesting a lesser dose of the same medication IF
ORDERED.
- Requesting a less intrusive route of administration
if both routes are prescribed by the provider (PO <
IV).
07/13/24 14:54
Code Status As Directed
Resuscitation Status: Do not resuscitate
Reached after discussion with pt or family/Healthcare POA: Yes
Decision communicated with: patient
DNR Bracelet Application ONCE
07/13/24 16:00
Sodium Bicarbonate 1,300 mg PO TID
Abnormal Lab Results
07/13/24 07/13/24 07/13/24
11:43 11:46 12:20
RBC 2.31 L 10^6/uL
(4.20-5.40)
Hgb 6.7 L* g/dL
(12.0-16.0)
Hct 21.4 L %
(37.0-47.0)
MCHC 31.3 L g/dL
(33.0-37.0)
Absolute Lymphs (auto) 0.8 L 10^3/uL
(1.2-3.4)
Lymphocytes % 14.0 L %
(20.5-51.1)
Eosinophils % 8.2 H %
(0-6)
Chloride 110 H mmol/L
(98-107)
Carbon Dioxide 18 L mmol/L
(22-30)
BUN 55 H mg/dl
(7-17)
Creatinine 1.4 H mg/dL
(0.6-1.0)
Glucose 155 H mg/dl
(70-99)
Calcium 8.2 L mg/dl
(8.4-10.2)
TIBC 256 L ug/dl
(265-497)
% Saturation 16 L %
(20-50)
Total Protein 5.2 L g/dl
(6.3-8.2)
Albumin 2.8 L g/dl
(3.5-5.0)
Ur Occult Blood Reflex 3+ A
(Negative)
Leukocyte Esterase Rfl 1+ A
(Negative)
Urine Bacteria (Reflex) Few A
(Negative)
Urine Glucose 4+ A
(Negative)
Urine Albumin (Reflex) 2+ A
(Neg - Trace)
Crossmatch IS Only
07/13/24
13:30
RBC
Hgb
Hct
MCHC
Absolute Lymphs (auto)
Lymphocytes %
Eosinophils %
Chloride
Carbon Dioxide
BUN
Creatinine
Glucose
Calcium
TIBC
% Saturation
Total Protein
Albumin
Ur Occult Blood Reflex
Leukocyte Esterase Rfl
Urine Bacteria (Reflex)
Urine Glucose
Urine Albumin (Reflex)
Crossmatch IS Only See Detail
07/13/24 11:43
07/13/24 12:20
Vital Signs
Initial and Last Documented VS:
Initial Vital Signs
Temp Pulse Resp BP Pulse Ox
36.4 C 64 16 147/49 100
07/13/24 09:37 07/13/24 09:37 07/13/24 09:37 07/13/24 09:37 07/13/24 09:37
Last Documented Vital Signs
Temp Pulse Resp BP Pulse Ox
36.9 C 79 16 119/54 100
07/13/24 15:43 07/13/24 15:43 07/13/24 15:43 07/13/24 15:43 07/13/24 15:30
MDM/Problems Addressed
Differential Diagnosis Includes:
rectal bleeding, symptomatic anemai, chf
MDM/Problems Addressed:
emigdio johnson 78 y/o F cad on brilinta and asa
being admitted for GI bleed that began this AM:
last week, had floaters in eye so she saw retinal doctor who said she had subtle hemorrhage and her hand nailer recommended stopping the brilinta which she has done for the past 3 days
has felt SOB x 3 days
then this AM BRBPR after BM;
here, stable vitals, pale looking
red blood in vault but no active bleeding, normal hg is 9, she is 6 today and short of breath
going to transfuse her
lactate normal, no belly pain
i had CTAP w IV contrast ordered but her GFR is low; for now cancelled;
dr. adorno GI aware;
*Critical Care Note
Total Time (30-74mins, 75-104mins- exclusive of procedures): Not Applicable
ED Attending Note
-
Portions of this chart may have been created with voice recognition software.� Occasional wrong word or��sound alike� substitutions may have occurred due to the inherent limitations of voice recognition software.
Discharge Plan
Departure
Patient Disposition: Admit
Date of Disposition: 07/13/24
Time of Disposition: 12:20
Admit to: Med/Surg
Presentation/result/management discussed w/ accepting MD/DO: Hospitalist
Condition: Fair
Discharge Problem:
Acute GI bleeding, Symptomatic anemia
Interventions
Interventions:
*Risk Screen - Suicide Last Done: 07/13/24 11:11
*General Assessment Last Done: 07/13/24 11:11
*Neglect/Abuse Screening Last Done: 07/13/24 11:11
*ED COVID-19 Vaccine History Last Done: 07/13/24 11:11
LR-Pheipz-Jlvbvpgxtl Assessment Last Done: 07/13/24 12:00
ED- Cardiac Assessment Last Done: 07/13/24 12:00
ED- Pulmonary Assessment Last Done: 07/13/24 12:00
[2024-07-13] MEDS: NSS 500 IV (11:49)
[2024-07-13 12:02] LABS: INR 1.07; PT 14.2 Sec (11.4-14.6)
[2024-07-13 12:03] LABS: APTT 33.7 Sec (23.4-35.0)
[2024-07-13 12:09] LABS: NT-proBNP 2130 pg/ml; Troponin I < 0.012 ng/ml
[2024-07-13 12:10] LABS: Urine Albumin 2+ (Neg - Trace); Urine Bilirubin Negative (Negative); Urine Character Clear (Clear); Urine Color Yellow; Urine Glucose 4+ (Negative); Urine Ketone Negative (Negative); Urine Leukocyte 1+ (Negative); Urine Nitrite Negative (Negative); Urine Occult Blood 3+ (Negative); Urine Urobilinogen Negative (Neg - 1+)
[2024-07-13 12:12] LABS: % Basophils 0.3 % (0-2); % Eosinophils 8.2 % (0-6); % Immature Granulocytes 0.5 % (0-0.5); % Monocytes 7.3 % (1.7-9.3); % Neutrophils 69.7 % (42.2-75.2); Absolute Eosinophils 0.5 10^3/uL (0-0.7); Absolute Lymphocytes 0.8 10^3/uL (1.2-3.4); Absolute Monocytes 0.4 10^3/uL (0.1-0.6); Hematocrit 21.4 % (37.0-47.0); Hemoglobin 6.7 g/dL (12.0-16.0); Mean Corp Hgb Conc. 31.3 g/dL (33.0-37.0); Mean Corpuscular Volume 92.6 fL (81.0-99.0); Nucleated Red Blood Cells % 0 %; Platelet Count 291 10^3/uL (130-400); Red Blood Cell Count 2.31 10^6/uL (4.20-5.40); Red Cell Dist. Width 13.2 % (11.5-14.5); White Blood Cell Count 5.7 10^3/uL (4.8-10.8)
[2024-07-13 12:16] LABS: Lactic Acid 1.1 mmol/L (0.7-2.0)
[2024-07-13 12:42] LABS: Urine Bacteria Few (Negative); Urine Red Blood Cell 0-2 /HPF (0-2)
[2024-07-13 12:50] LABS: ALT (SGPT) 12 U/L (0-35); AST (SGOT) 24 U/L (14-36); Albumin 2.8 g/dl (3.5-5.0); Alkaline Phosphatase 88 U/L (38-126); Blood Urea Nitrogen 55 mg/dl (7-17); Calcium 8.2 mg/dl (8.4-10.2); Carbon Dioxide 18 mmol/L (22-30); Chloride 110 mmol/L (98-107); Estimated Creatinine Clearance 27 ml/min; Glucose 155 mg/dl (70-99); Potassium 4.7 mmol/L (3.5-5.1); Sodium 138 mmol/L (135-145); Total Bilirubin 0.3 mg/dl (0.2-1.3); Total Protein 5.2 g/dl (6.3-8.2); eGFR 38.03
[2024-07-13] MEDS: XANAX 0.25 MG PO (13:45)
--- NOTE | 2024-07-13 14:09 | HPS.HSE ---
Addendum entered and electronically signed by Kai Singh MD 07/13/24 16:05:
I saw and examined the patient.
The [employer]URE GLAZIER or PA's note was reviewed and I agree with the note.
Comment:
78-year-old female with past medical history of ischemic cardiomyopathy now with preserved EF, essential hypertension, CAD, hyperlipidemia, CKD stage III, diabetes mellitus, anxiety/depression came to the hospital with GI bleed. Per patient she
also gets constipated at times as she is on oral iron. This morning she started noticing blood in stool. Baseline appears to be around 9 and her admission hemoglobin 6.7. Will transfuse 1 unit. Start clears. GI consulted. Consult cardiology
given recent stent and will be off Brilinta. Patient also went to a retina specialist secondary to macular degeneration where she gets injection. Postinjection she developed mild bleeding. She will follow-up with her retina specialist once get
discharge. Currently denies any visual loss. Admit to tele. recheck H/H later today.
General: Well Developed, Well Nourished, No Apparent Distress, Comfortable and Conversant
HEENT: NormoCephalic, Moist mucous membranes, Atraumatic
Respiratory: Clear and Non Labored Respirations
Cardiac: S1/S2 and Regular Rhythm; No Rub or Gallop
GI: Soft, Non Tender, Non Distended and Normal Bowel Sounds
Musculoskeletal: No Edema
Skin: IV/Catheter Site; No Rash
Neuro: Awake, Alert, AO x 3 and Nonfocal/grossly intact
Psych: Calm and Intact Judgment/Insight
I spent a total of 76 minutes with the patient or on the floor. More than 50% of this time involved counseling and coordination of care.
Original Note:
Family Physician
-
Family Physician: Bruce Ramirez
Chief Complaint
-
rectal bleeding
History of Present Illness
Patient is a 78-year-old female with past medical history significant for essential hypertension, hyperlipidemia, CAD, CKD III, DM II and anxiety/depression who presented to [facility] ED for evaluation of bright red blood with bowel
movement this morning. Patient reports approximately one week ago she had left eye floaters that looked like strings, she saw retinal specialist and was told she had a small hemorrhage in back of eye, no detachment or hole. Instructions were given
to sleep upright and follow up today. She called to review findings with apple turner who instructed her to stop Brilinta, last dose 4 days ago. Patient reports since stopping Brilinta she has noticed having palpitations and increased SOB. She
reports having a bowel movement this morning with bright red blood on tissue when she wiped, stated stool was dark as normal for her. She reports dark stools with iron supplements. She denies any dizziness, chest pain or syncope.
Medical History
Past Medical History
Past Medical History: Reports Other
Additional Past Medical History:
essential hypertension
hyperlipidemia
CAD
CKD III
DM II
anxiety/depression
Hx ND
Past Surgical History: Reports Other
Additional Past Surgical History:
cardiac stent 2000
NSTEMI - cardiac stent 01/2024
Cholecystectomy
Stent in bile duct
left rotator cuff
right eye
Social History
Tobacco: Non-smoker
Alcohol: None
Drug: None
Personal:
Living: With Family
Employment: Retired
Family History
Family History: Other (Mother: DM, CKD, HLD; Father: CVA, HLD; Sister: DM, HLD; Brother: CKD, HLD; Sister: ND)
Allergies / Home Medications
Allergies reflects when Allergies were last updated in [facility].
Home Medications with original date entered in [facility]
Allergy/Medication List:
Allergies
Allergy/AdvReac Type Severity Reaction Status Date / Time
simvastatin [From Zocor] Allergy Itching Verified 07/13/24 09:41
Home Medications
pioglitazone 30 mg tablet 30 mg PO DAILY Diabetes 01/31/24
vit C 250 mg-vit E 90 mg-zinc 40 mg-copper 1 jz-eomelf-kzixvt capsule (PreserVision AREDS-2) 1 tab PO BID Supplement 01/31/24
aspirin 81 mg chewable tablet 81 mg PO DAILY #90 tabs 02/06/24
dapagliflozin propanediol 10 mg tablet 10 mg PO DAILY 30 days #30 tabs 02/06/24
metoprolol succinate 25 mg tablet,extended release 24 hr 25 mg PO BID 30 days #60 tabs 02/06/24
sacubitril 24 mg-valsartan 26 mg tablet (Entresto) 1 tab PO BID 30 days #60 tabs 02/06/24
alprazolam 0.5 mg tablet (Xanax) 0.5 mg PO HSPRN PRN sleep 07/13/24
ferrous sulfate 325 mg (65 mg iron) tablet 325 mg PO BID 07/13/24
rosuvastatin 20 mg tablet 20 mg PO DAILY 07/13/24
Review of Systems
-
History Source: Patient
Constitutional: Reports No Symptoms
EENT: Reports No Symptoms
Respiratory: Reports Trouble Breathing (dyspnea)
Cardiac: Reports Palpitations
Abdomen/GI: Reports Bloody Stools and Black Stools
: Reports No Symptoms
Musculoskeletal: Reports No Symptoms
Skin: Reports No Symptoms
Neurological: Reports No Symptoms
Endocrine: Reports No Symptoms
Hematologic/Lymphatic: Reports No Symptoms
Psych: Reports No Symptoms
Physical Exam
Vital Signs
Vital Signs
Temp Pulse Resp BP Pulse Ox
97.6 F 68 12 146/40 100
07/13/24 09:37 07/13/24 13:45 07/13/24 13:45 07/13/24 12:00 07/13/24 13:45
Physical Exam
General: Well Developed, Well Nourished, No Apparent Distress, Comfortable and Conversant
HEENT: NormoCephalic, Moist mucous membranes, Atraumatic, Mccormick Conjunctivae, Nose Appears Normal and Ears Appear Normal
Respiratory: Clear and Non Labored Respirations
Cardiac: S1/S2 and Regular Rhythm; No Rub or Gallop
GI: Soft, Non Tender, Non Distended and Normal Bowel Sounds; No Organomegaly
Rectal: Red and Hem Positive
Genito-urinary: Deferred by me
Musculoskeletal: No Clubbing, No Cyanosis and No Edema
Skin: IV/Catheter Site; No Rash
Neuro: Awake, Alert, AO x 3 and Nonfocal/grossly intact
Psych: Calm and Intact Judgment/Insight
Laboratory Results
-
07/13/24 11:43
07/13/24 12:20
Laboratory Results
PT 14.2 Sec (11.4-14.6) 07/13/24 11:32
INR 1.07 07/13/24 11:32
APTT 33.7 Sec (23.4-35.0) 07/13/24 11:32
Lactic Acid 1.1 mmol/L (0.7-2.0) 07/13/24 11:32
Total Bilirubin 0.3 mg/dl (0.2-1.3) 07/13/24 12:20
AST 24 U/L (14-36) 07/13/24 12:20
ALT 12 U/L (0-35) 07/13/24 12:20
Alkaline Phosphatase 88 U/L (38-126) 07/13/24 12:20
Troponin I < 0.012 ng/ml 07/13/24 11:32
Data Reviewed
-
Medical Tests (Nuc Med, Echo, EKG etc): Report Reviewed by me (EKG: NORMAL SINUS RHYTHM CANNOT RULE OUT ANTERIOR INFARCT , AGE UNDETERMINED ABNORMAL ECG)
Lab Data: Labs Reviewed by me (hgb 6.7, hct 21.4, BUN 55, Creat 1.4, )
Impression/Plan
-
IMPRESSION/PLAN:
#GI bleed
hgb 6.7, hct 21.4
Bright red blood in vault with ED exam
- Admit to IMU
- Consult GI
- Clear liquids
- transfuse for hgb <7
#essential hypertension
- continue metoprolol
#ischemic cardiomyopathy
ECHO (05/14/2024): LV ejection fraction is 60-65%. No regional wall motion abnormalities are seen.
Normal right ventricular size and function.
Aortic sclerosis without stenosis.
Mild tricuspid regurgitation. Estimated pulmonary artery pressure of 30-35 mmHg.
Compared to previous echo on 02/03/2024, overall cardiac function has improved (previous LVEF was 35-40%). The degree of tricuspid regurgitation has improved with a decline in PAP (previously moderate
to severe with a PAP of 75-80 mmHg).
- continue Entresto, dapagliflozin and metoprolol
- hold Brilinta in setting of GI bleed
- Consult Cardiology for recommendations with Brilinta
#CAD
#hyperlipidemia
- continue aspirin and rosuvastatin
#CKD III
BUN 55, Creat 1.4
- monitor BMP
#DM II
- AccuCheck AC & HS
- SSI
- continue pioglitazone
#anxiety/depression
- continue alprazolam PRN
Code status: DNR
DVT prophylaxis: SCDs
--- NOTE | 2024-07-13 14:49 | CON.GI ---
Addendum entered and electronically signed by Lisandro Mayfield MD 07/13/24 16:38:
Patient seen and examined, agree with resident note. Patient with complex history as noted including coronary disease, macular degeneration and history of iron deficiency anemia with biliary stent presents with shortness of breath. She was
straining and had a bowel movement with small mount of blood on the toilet paper. She had formed dark stools that she has had since has been on iron for the past 3 years. By her report she had workup for iron deficiency with only endoscopy, and
states that this is attributed some biliary benign mass, and has a stent in her bile duct. All this was done at [facility]. She states she is never had a colonoscopy that was had negative Cologuard test. She been on Brilinta since last January when
she had an AR, though would held it for the past 3 days after thought to have some ocular bleeding. She denies any fever, chills, chest pain, abdominal pain. On exam she has no significant tenderness. Labs showed significant anemia with
hemoglobin of 6.7 MCV of 92.6. Normal iron though very low TIBC, ferritin still pending.
1. Anemia: Likely multifactorial, with history of iron deficiency in the past though this is very unclear. Likely has some component of anemia of chronic disease with what sounds like hemorrhoidal bleeding and no significant gross bleeding now.
She is ordered to units of PRBCs and Brilinta has been held. Will await further iron studies and get records from [facility] relating to her previous workup. We recommended likely EGD and colonoscopy which could be done on Friday after blood and has
been off for 7 days, unless signs of brisk active bleeding at which point we do more urgent endoscopy though this seems less likely.
2. History of biliary stent: Unclear cause. Will check KUB to assess whether plastic or metal and will get and try to get records from [facility] relating to this.
Original Note:
Consultation
-
Date/Time Consultation Requested: 07/13/24
Date/Time Consultation Performed: 07/13/24
Requesting Provider: Zoey Mcneal PA-C
Performing Provider: DrDr.Kasarapu Peter
Reason for Consultation: Rectal bleeding
Medical History
Chief Complaint / HPI
Chief Complaint: Rectal bleeding
History of Present Illness:
This is a 78yo F patient with PMH of CAD s/p stent x2, HTN, HLD, macular degeneration and ANI who presented to the ED for concerns of rectal bleeding. Today morning as the patient was passing a bowel movement, she had noticed bright red blood while
wiping. Although she does take iron supplements, she only had mild straining while passing stool with no abdominal pain. She has never had rectal bleeding in the past. She denies any fever, chills, nausea or vomiting.
Recently, she had noticed floaters in her left eye and was told by her retinal specialist that it might be due to a small bleed during her injection for her macular degeneration. The patient had spoken to her track laborer as well and was advised to
stop her Brillinta (stopped on 07/10) and continue only with ASA. Since then, she states that she has been experiencing SOB.
In regards to her ANI, the patient states that around 2021, she had undergone evaluation for her ANI and was told she had a 'non cancerous mass' that was biopsied from her bile duct at [facility] and also had biliary stent placed in 2021. She
is on iron supplements everyday.
She has never had a colonoscopy but prior Cologuards have been negative.
Past Medical History
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
Past Surgical History: Cardiac (stent x2) and Other (hx of biliary stent in 2021)
Social History
Tobacco: Non-Smoker
Alcohol: None
Drug: None
Family History
Family History: Reviewed & Not Pertinent
Allergies / Home Medications
Allergy/AdvReac Type Severity Reaction Status Date / Time
simvastatin [From Zocor] Allergy Itching Verified 07/13/24 09:41
�Medication �Instructions �Recorded
pioglitazone 30 mg tablet 30 mg PO DAILY Diabetes 01/31/24
vit C 250 mg-vit E 90 mg-zinc 40 1 tab PO BID Supplement 01/31/24
mg-copper 1 [id number]
capsule (PreserVision AREDS-2)
aspirin 81 mg chewable tablet 81 mg PO DAILY #90 tabs 02/06/24
dapagliflozin propanediol 10 mg 10 mg PO DAILY 30 days #30 tabs 02/06/24
tablet
metoprolol succinate 25 mg 25 mg PO BID 30 days #60 tabs 02/06/24
tablet,extended release 24 hr
sacubitril 24 mg-valsartan 26 mg 1 tab PO BID 30 days #60 tabs 02/06/24
tablet (Entresto)
alprazolam 0.5 mg tablet (Xanax) 0.5 mg PO HSPRN PRN sleep 07/13/24
ferrous sulfate 325 mg (65 mg 325 mg PO BID 07/13/24
iron) tablet
rosuvastatin 20 mg tablet 20 mg PO DAILY 07/13/24
Review of Systems
-
All other systems: A 12 pt ROS was Negative except as stated above in HPI
Vital Signs
Temp Pulse Resp BP Pulse Ox
97.6 F 68 12 146/40 100
07/13/24 09:37 07/13/24 13:45 07/13/24 13:45 07/13/24 12:00 07/13/24 13:45
Physical Exam
Exam
General: No Apparent Distress
HEENT: Normocephalic
Respiratory: Clear
Cardiac: S1/S2 and Regular Rhythm
GI: Soft, Non Tender, Non Distended and Normal Bowel Sounds
Musculoskeletal: No Cyanosis and No Edema
Skin: Warm and Dry
Neuro: Awake, Alert and Oriented
Psych: Calm
Results
WBC 5.7 10^3/uL (4.8-10.8) 07/13/24 11:43
Hgb 6.7 g/dL (12.0-16.0) L* 07/13/24 11:43
Hct 21.4 % (37.0-47.0) L 07/13/24 11:43
MCV 92.6 fL (81.0-99.0) 07/13/24 11:43
Plt Count 291 10^3/uL (130-400) 07/13/24 11:43
Absolute Neuts (auto) 4.0 10^3/uL (1.4-6.5) 07/13/24 11:43
PT 14.2 Sec (11.4-14.6) 07/13/24 11:32
INR 1.07 07/13/24 11:32
APTT 33.7 Sec (23.4-35.0) 07/13/24 11:32
Sodium 138 mmol/L (135-145) 07/13/24 12:20
Potassium 4.7 mmol/L (3.5-5.1) 07/13/24 12:20
Chloride 110 mmol/L (98-107) H 07/13/24 12:20
Carbon Dioxide 18 mmol/L (22-30) L 07/13/24 12:20
BUN 55 mg/dl (7-17) H 07/13/24 12:20
Creatinine 1.4 mg/dL (0.6-1.0) H 07/13/24 12:20
Calcium 8.2 mg/dl (8.4-10.2) L 07/13/24 12:20
Total Bilirubin 0.3 mg/dl (0.2-1.3) 07/13/24 12:20
AST 24 U/L (14-36) 07/13/24 12:20
ALT 12 U/L (0-35) 07/13/24 12:20
Alkaline Phosphatase 88 U/L (38-126) 07/13/24 12:20
Diagnostic Image Results:
Prior GI Procedures: n/a
EGD: n/a
Colonoscopy: Prior Negative Cologuard
Assessment / Plan
-
Summary:This is a 78yo F patient with PMH of CAD s/p stent x2, HTN, HLD, macular degeneration, hx of biliary stent and ANI who presented to the ED for concerns of rectal bleeding. Today morning as the patient was passing a bowel movement, she had
noticed bright red blood while wiping. Although she does take iron supplements, she only had mild straining while passing stool with no abdominal pain. She has never had rectal bleeding in the past. She denies any fever, chills, nausea or vomiting.
She does have dark stools due to her iron supplements but did not have any diarrhea leading recently.
Recently, she had noticed floaters in her left eye and was told by her retinal specialist that it might be due to a small bleed during her injection for her macular degeneration. The patient had spoken to her track laborer as well and was advised to
stop her Brillinta (stopped on 07/10) and continue only with ASA. Since then, she states that she has been experiencing SOB.
In regards to her ANI, the patient states that around 2021, she had undergone evaluation for her ANI and was told she had a 'non cancerous mass' that was biopsied from her bile duct at [facility]. She is on iron supplements everyday.
She has never had a colonoscopy but prior Cologuards have been negative.
In the ED, no external hemorrhoids seen on exam but blood present in rectal vault.
Assessment/Plan:
#Painless Rectal Bleeding
- afebrile
- Hb 6.7, transfuse to keep Hb above 7
- Trend Hb
- She is tolerating p.o intake, start clear liquid diet
- Elevated BUN, continue PPI
- Iron panel pending, cbc/cmp tomorrow
- likely lower GI bleed due to painless rectal bleeding with bright blood-- ?diverticulitis vs hemorrhoids
- Requesting records from [facility]
- will consider colonoscopy/EGD for further eval once off of Brillinta for 7 days (discontinued on 07/10)
- will order xray abdm for biliary stent hx
-
-
Thank you for consultation and allowing me to participate in the patient's care. Please call the steward/stewardess second class GI physician during the after hours with any questions or concerns.
[2024-07-13 15:08] LABS: Iron 42 ug/dl (37-170)
[2024-07-13 15:18] LABS: Percent Saturation 16 % (20-50); Total Iron Binding Capacity 256 ug/dl (265-497)
--- NOTE | 2024-07-13 15:59 | CON.CAR ---
Consultation
Consultation Request
Date/Time Consultation Requested: 07/13/2024 15:45
Date/Time Consultation Performed: 07/13/2024 16:00
Requesting Provider: DENISE Hanson
Performing Provider: DENISE Mcghee for Dr. Holley
Reason for Consultation: DAPT recommendations
Medical History
-
Chief Complaint: Rectal bleeding
History of Present Illness:
Karina Null is an 78-year-old female (known to Dr. Escobedo, her primary commercial loan officer), with coronary artery disease (distant RCA stenting and then NSTEMI with RICHI to LCx 01/2024), ischemic cardiomyopathy with recovered EF, hypertension, dyslipidemia,
type 2 diabetes mellitus, stage III chronic kidney disease, and iron deficiency anemia presented to the emergency department today with a chief complaint of bright red blood per rectum. Her rectal bleeding started today. She reports she always has
dark stool and attributes this to her iron supplement. She endorses associated weakness/fatigue and shortness of breath. On exam, she is chest pain-free.
Past Medical History
Past Medical History: CAD, CHF (Ischemic cardiomyopathy [recovered]), HTN, Hypercholesterolemia, NIDDM, Renal Failure (CKD stage III) and Other (ID)
Past Surgical History: Cholecystectomy and Orthopedic
Social History
Tobacco: Non-Smoker
Alcohol: None
Drug: None
Personal:
Living: With Family
Employment: Retired
Family History
Family History: Reviewed & Not Pertinent
Allergies / Home Medications
Allergy/AdvReac Type Severity Reaction Status Date / Time
simvastatin [From Zocor] Allergy Itching Verified 07/13/24 09:41
�Medication �Instructions �Recorded �Confirmed �Type
pioglitazone 30 mg tablet 30 mg PO DAILY Diabetes 01/31/24 07/13/24 History
vit C 250 mg-vit E 90 mg-zinc 40 1 tab PO BID Supplement 01/31/24 07/13/24 History
mg-copper 1 [id number]
capsule (PreserVision AREDS-2)
aspirin 81 mg chewable tablet 81 mg PO DAILY #90 tabs 02/06/24 07/13/24 Rx
dapagliflozin propanediol 10 mg 10 mg PO DAILY 30 days #30 tabs 02/06/24 07/13/24 Rx
tablet
metoprolol succinate 25 mg 25 mg PO BID 30 days #60 tabs 02/06/24 07/13/24 Rx
tablet,extended release 24 hr
sacubitril 24 mg-valsartan 26 mg 1 tab PO BID 30 days #60 tabs 02/06/24 07/13/24 Rx
tablet (Entresto)
alprazolam 0.5 mg tablet (Xanax) 0.5 mg PO HSPRN PRN sleep 07/13/24 07/13/24 History
ferrous sulfate 325 mg (65 mg 325 mg PO BID 07/13/24 07/13/24 History
iron) tablet
rosuvastatin 20 mg tablet 20 mg PO DAILY 07/13/24 07/13/24 History
Review of Systems
-
History Source: Patient
All other systems: Negative unless noted
Constitutional: Fatigue
EENT: No Symptoms
Respiratory: No Symptoms
Cardiac: No Symptoms
Abdomen/GI: Bloody Stools
: No Symptoms
Musculoskeletal: No Symptoms
Skin: No Symptoms
Neurological: Weakness
Endocrine: No Symptoms
Hematologic/Lymphatic: No Symptoms
Physical Exam
Vital Signs
Temp Pulse Resp BP Pulse Ox
98.5 F 79 16 119/54 100
07/13/24 15:43 07/13/24 15:43 07/13/24 15:43 07/13/24 15:43 07/13/24 15:30
Lab Results
07/13/24 11:43
07/13/24 12:20
Troponin I < 0.012 ng/ml 07/13/24 11:32
Czx-H-Jdtnvnsewkl Pept 2130 pg/ml 07/13/24 11:32
Physical Exam
General: Well Developed, Well Nourished, No Apparent Distress and Comfortable
HEENT: Normocephalic, Anicteric and Moist Mucous Membranes
Respiratory: Clear and Non Labored Respirations
Cardiac: S1/S2 and Regular Rhythm; Negative Peripheral Edema
Breast: Deferred by me
GI: Soft, Non Tender, Non Distended and Normal Bowel Sounds
Rectal: Deferred by Provider
Genito-urinary: No Costovertebral Tender
Musculoskeletal: No Clubbing, No Cyanosis and No Edema
Skin: Warm and Dry
Neuro: AO x 3
Hematologic/Lymphatic: No Lymphadenopathy
Psych: Calm
Impression / Plan
-
I/P: 78F with coronary artery disease (distant RCA stenting and then NSTEMI with RICHI to LCx 01/2024), ischemic cardiomyopathy with recovered EF, hypertension, dyslipidemia, type 2 diabetes mellitus, stage III chronic kidney disease, and iron
deficiency anemia presented to the emergency department today with a chief complaint of bright red blood per rectum.
Outpatient commercial loan officer: Dr. Escobedo
Lower GI bleed with BRBPR
-Symptomatic with shortness of breath and fatigue
-Hemoglobin 6.7 on admission, transfusion per primary service
-Last dose of ticagrelor 07/09/2024
CAD
-Status post IVUS guided shockwave lithotripsy facilitated PCI to the left circumflex on 02/05/2024
-The plan was for DAPT with aspirin 81 mg and ticagrelor for 1 year, ticagrelor last dose on 07/09/2024 when she had a retinal hemorrhage, continuing with ASA alone for her lifetime
-Stable EKG and she is without chest pain
Ischemic cardiomyopathy with recovered LVEF
-Continue GDMT as tolerated with holding parameters given acute on chronic blood loss
-Closely follow daily weight, I/O as she may require diuresis with transfusions
Retinal hemorrhage (07/09/2024), small per her report, being followed by retinal specialist in the outpatient setting
Mild mitral regurgitation
Mild tricuspid regurgitation
NIDDM
Dyslipidemia, on rosuvastatin with LDL at goal
CKD, stage III
ANI
Data Reviewed
-
EKG: Report Reviewed by me (Sinus rhythm, rate 60)
Medical Tests (Nuc Med, Echo etc): Report Reviewed by me (Echocardiogram cardiac catheterization as above)
Labs: Labs Reviewed by me
Old Records: Reviewed (Outpatient cardiology notes)
[2024-07-13 16:10] LABS: Ferritin 27.8 ng/ml (11.1-264.0)
[2024-07-13 16:41] LABS: Folate > 20.0 ng/ml (2.76-20); Vitamin B12 631 pg/ml (239-931)
[2024-07-13] MEDS: SODIUM BICARBONATE 1300 MG PO ×2 (17:03→21:04)
--- NOTE | 2024-07-13 18:01 | TRANSFER ---
Pt transferred from ED to [facility] Pt walked from stretcher to bed. PRBCs transfusing. VSS, admission and assessment complete by this RN. at bedside. Pt oriented to room. Call rosas within reach. No complaints at this time.
[2024-07-13] MEDS: FERRLECIT 110 MG IV (18:07)
[2024-07-13] MEDS: ENTRESTO 24 MG/26 MG 1 TAB PO (19:15)
[2024-07-13] MEDS: TOPROL XL 25 MG PO (19:15)
[2024-07-13] MEDS: FEOSOL 325 MG PO (19:15)
[2024-07-13] MEDS: XANAX 0.5 MG PO (21:06)
[2024-07-13 22:36] LABS: Hemoglobin 8.8 g/dL (12.0-16.0)
[2024-07-14] VITALS (9 sets, daily range): BP systolic 118–153; BP diastolic 40–69; PULSE 60–85; BMI 28.3
--- NOTE | 2024-07-14 06:14 | W.PN.GI.CBS2 ---
Today's Communication / Plan
-
Please see assessment and plan for details.
Assessment / Plan
-
1. Anemia: Multifactorial, with history of iron deficiency for the past few years, likely some component of anemia of chronic disease as well, now in the setting of Brilinta post ID and stent last fall, possibly with some acute blood loss component
though this seems less likely. She has responded appropriately to transfusion and is overall feeling much better, no significant gross bleeding now. Again, the workup of her iron deficiency is unclear though has been ongoing for the past couple of
years on oral iron. Still awaiting records from [place]. May tentatively plan EGD and colonoscopy (which she has never had) on Friday which would be 7 days off Brilinta, sooner if signs of brisk active bleeding.
2. Biliary stent: Again, unclear indication. On review of abdominal x-ray she appears to have a plastic biliary stent as well as single pigtail pancreatic duct stent. Her LFTs are normal. It is odd that she has retained plastic biliary and
pancreatic stents for 2 years. Still awaiting records from [place] for clarification.
Subjective
Subjective
Date of Service: July 14, 2024
Patient feeling okay, shortness of breath feels much improved after transfusion, no chest pain, abdominal pain, nausea or vomiting. She had 1 bowel movement yesterday, still with small [place] bright of blood on the toilet paper, formed dark stool.
Objective
Data Reviewed
Laboratory Data:
Laboratory Results
PT 14.2 Sec (11.4-14.6) 07/13/24 11:32
INR 1.07 07/13/24 11:32
APTT 33.7 Sec (23.4-35.0) 07/13/24 11:32
Total Bilirubin 0.3 mg/dl (0.2-1.3) 07/13/24 12:20
AST 24 U/L (14-36) 07/13/24 12:20
ALT 12 U/L (0-35) 07/13/24 12:20
Alkaline Phosphatase 88 U/L (38-126) 07/13/24 12:20
Vital Signs and I&O:
Vital Signs
Temp Pulse Resp BP Pulse Ox
98 F 62 16 125/45 95
07/14/24 03:05 07/14/24 03:05 07/14/24 03:05 07/14/24 03:05 07/14/24 03:05
I&O
07/12/24 07/13/24 07/14/24
06:59 06:59 06:59
Intake Total 500 / 500
Balance 500 / 500
Physical Exam
Physical Exam
General: NAD
Abdomen: normal bowel sounds, soft, no tenderness, no masses or bruits, no ascites
--- NOTE | 2024-07-14 06:19 | DOWNTIME ---
There was a [employer] Client Supply Crib Attendant Downtime on 07/14/2024 from 0100 to 07/15/2023 at 0420 . Downtime documentation of patient's care, including medication administrations, has been reconciled in the electronic record per guidelines. Refer to the
patient's paper chart under the miscellaneous tab to see printed paper medication records and downtime forms.
[2024-07-14] MEDS: ENTRESTO 24 MG/26 MG 1 TAB PO ×2 (07:26→19:43)
[2024-07-14] MEDS: ACTOS 30 MG PO (07:27)
[2024-07-14] MEDS: CRESTOR 20 MG PO (07:27)
[2024-07-14] MEDS: OCUVITE SOFTGEL 1 CAP PO (07:27)
[2024-07-14] MEDS: SODIUM BICARBONATE 1300 MG PO (07:27)
[2024-07-14] MEDS: FEOSOL 325 MG PO ×2 (07:28→19:43)
[2024-07-14] MEDS: TOPROL XL 25 MG PO ×2 (07:28→19:43)
[2024-07-14] MEDS: LOW STRENGTH ASPIRIN 81 MG PO (07:28)
[2024-07-14] MEDS: FARXIGA 10 MG PO (07:28)
[2024-07-14 08:22] LABS: Hematocrit 26.1 % (37.0-47.0); Hemoglobin 8.3 g/dL (12.0-16.0); Mean Corp Hgb Conc. 31.8 g/dL (33.0-37.0); Mean Corpuscular Hgb 29.5 pg (27.0-31.0); Mean Corpuscular Volume 92.9 fL (81.0-99.0); Platelet Count 266 10^3/uL (130-400); Red Blood Cell Count 2.81 10^6/uL (4.20-5.40); Red Cell Dist. Width 14.4 % (11.5-14.5); White Blood Cell Count 5.8 10^3/uL (4.8-10.8)
[2024-07-14 08:51] LABS: Blood Urea Nitrogen 41 mg/dl (7-17); Carbon Dioxide 21 mmol/L (22-30); Chloride 110 mmol/L (98-107); Estimated Creatinine Clearance 29 ml/min; Glucose 103 mg/dl (70-99); Potassium 4.2 mmol/L (3.5-5.1); Sodium 138 mmol/L (135-145); eGFR 41.57
--- NOTE | 2024-07-14 08:51 | W.PN.CD ---
Today's Communication / Plan
-
Hold ticagrelor indefinitely
Continue aspirin indefinitely
Cardiology will sign off at this time. Please call with any additional questions or concerns.
Impression / Plan
-
I/P: 78F with coronary artery disease (distant RCA stenting and then NSTEMI with RICHI to LCx 01/2024), ischemic cardiomyopathy with recovered EF, hypertension, dyslipidemia, type 2 diabetes mellitus, stage III chronic kidney disease, and iron
deficiency anemia presented to the emergency department today with a chief complaint of bright red blood per rectum.
Outpatient engine lathe set up operator: Dr. Escobedo
Lower GI bleed with BRBPR
-Symptomatic with shortness of breath and fatigue
-Hemoglobin 6.7 on admission, improved s/p 1U pRBCs
-Last dose of ticagrelor 07/09/2024
-Given her last stent was ~6 months ago, she can stop Ticagrelor completely
CAD
-Status post IVUS guided shockwave lithotripsy facilitated PCI to the left circumflex on 02/05/2024
-The plan was for DAPT with aspirin 81 mg and ticagrelor for 1 year, ticagrelor last dose on 07/09/2024 when she had a retinal hemorrhage, continue to hold
-Continuing with ASA alone for her lifetime
-Stable EKG and she is without chest pain
Ischemic cardiomyopathy with recovered LVEF
-Continue GDMT as tolerated with holding parameters given acute on chronic blood loss
-Closely follow daily weight, I/O as she may require diuresis with transfusions
Retinal hemorrhage (07/09/2024), small per her report, being followed by retinal specialist in the outpatient setting
Mild mitral regurgitation
Mild tricuspid regurgitation
NIDDM
Dyslipidemia, on rosuvastatin with LDL at goal
CKD, stage III
ANI
Subjective: More bright red blood per rectum overnight. Labs pending this a.m. She was seen by GI this morning who is planning for colonoscopy on Friday.
Physical Exam
Vital Signs/Labs
Vital Signs
Temp Pulse Resp BP Pulse Ox
98.5 F 64 17 130/49 98
07/14/24 07:00 07/14/24 07:26 07/14/24 07:00 07/14/24 07:26 07/14/24 07:00
07/13/24 07/14/24 07/15/24
06:59 06:59 06:59
Actual Weight 65.771 kg
07/14/24 07:25
07/14/24 07:25
PT 14.2 Sec (11.4-14.6) 07/13/24 11:32
INR 1.07 07/13/24 11:32
APTT 33.7 Sec (23.4-35.0) 07/13/24 11:32
07/13/24
11:32
Ufw-F-Euzzxgclgux Pept 2130
LAB Results
07/13/24
11:32
Troponin I < 0.012
Physical Exam
Constitutional: Comfortable
Cardiovascular: Rhythm & rate is regular, Pedal edema is absent, S1S2 is normal and Murmur/rub/gallop absent
Respiratory: Respiratory effort normal and Lungs clear to auscul.
Neuro/Psych: AO x 3
Data Reviewed
-
Date of Service: July 14, 2024
Medical Decision Making: Reviewed Test Results, Independent Historian Assessment, Test Interpretation and Review of Case with other Provider
Echo: Report Reviewed by me
Labs: Labs Reviewed by me
--- NOTE | 2024-07-14 11:24 | W.PN.HOSP.TC ---
Addendum entered and electronically signed by Kai Singh MD 07/14/24 13:40:
mild retinal bleed after macular degeneration injection outpatient; no further worsening of symptoms. will f/u outpatient. off brillinta
Original Note:
Today's Communication/Plan
-
monitor vitals
see plan
Monitor further bleeding
Monitor hemoglobin
Plan for EGD/colonoscopy Friday per GI after Brilinta washout
Continue aspirin
monitor H/H
Assessment / Plan
Assessment / Plan
General: Well Developed, Well Nourished, No Apparent Distress, Comfortable and Conversant
HEENT: NormoCephalic, Moist mucous membranes, Atraumatic
Respiratory: Clear and Non Labored Respirations
Cardiac: S1/S2 and Regular Rhythm; No Rub or Gallop
GI: Soft, Non Tender, Non Distended and Normal Bowel Sounds
Musculoskeletal: No Edema
Skin: IV/Catheter Site; No Rash
Neuro: Awake, Alert, AO x 3 and Nonfocal/grossly intact
Psych: Calm and Intact Judgment/Insight
GI bleed
hgb 6.7, hct 21.4 on admission
Associated iron deficiency anemia; Suspect there is some component of anemia of chronic disease as well
Continue with IV iron
Transfuse 1 unit 07/13 on admission
Monitor hemoglobin
Plan for EGD/colonoscopy per GI this admission on Friday. Now off Brilinta
Transfuse as needed
Monitor for further bleeding
History of biliary stent per patient, abdominal x-ray confirmed biliary stent as well as pancreatic ductal stent. Patient does not want to go back to GI at [facility]. Awaiting records from [facility].
essential hypertension
- continue metoprolol
ischemic cardiomyopathy
ECHO (05/14/2024): LV ejection fraction is 60-65%. No regional wall motion abnormalities are seen.
Normal right ventricular size and function.
Aortic sclerosis without stenosis.
Mild tricuspid regurgitation. Estimated pulmonary artery pressure of 30-35 mmHg.
Compared to previous echo on 02/03/2024, overall cardiac function has improved (previous LVEF was 35-40%). The degree of tricuspid regurgitation has improved with a decline in PAP (previously moderate
to severe with a PAP of 75-80 mmHg).
- continue Entresto, dapagliflozin and metoprolol
Per cardiology hold Brilinta indefinitely
CAD
hyperlipidemia
- continue aspirin and rosuvastatin
CKD III
BUN 55, Creat 1.4
- monitor BMP
DM II
- AccuCheck AC & HS
- SSI
- continue pioglitazone
anxiety/depression
- continue alprazolam PRN
Code status: DNR
DVT prophylaxis: SCDs
I spent a total of 52 minutes with the patient or on the floor. More than 50% of this time involved counseling and coordination of care.
Anticipated Discharge: > 48 hours
Subjective/Interval History
-
Date of Service: July 14, 2024
Denies pain
Objective Data
-
Labs:
Laboratory Results
07/13/24 07/14/24
23:20 07:25
WBC 5.8
Hgb Cancelled 8.3 L
Hct Cancelled 26.1 L
Plt Count 266
Sodium 138
Potassium 4.2
Chloride 110 H
Carbon Dioxide 21 L
BUN 41 H
Creatinine 1.3 H
Glucose 103 H
Calcium 8.0 L
Vital Signs:
Vital Signs
Temp Pulse Resp BP Pulse Ox
98.7 F 64 17 126/50 98
07/14/24 11:16 07/14/24 11:16 07/14/24 11:16 07/14/24 11:16 07/14/24 11:16
I&O
07/13/24 07/14/24 07/15/24
06:59 06:59 06:59
Intake Total 1050 / 1050
Balance 1050 / 1050
[2024-07-14] MEDS: FERRLECIT 110 MG IV (13:27)
--- NOTE | 2024-07-14 17:29 | CM ---
Met with patient to obtain information for assessment. Patient stated that she lives with her spouse in a two story home with four steps to enter. She described herself as independent with her ADLs, personal care, dressing and bathing. She can do
cloth feeder, cook, clean and do laundry. She has no DME. She has had VN through . She has not been to a SNF.
She has a prescription plan and uses, [facility] for all of her medications.
Her PCP is, Bruce Ramirez.
Plan: Case management will continue to follow and assist with discharge planning. Home with VN if needed.
[2024-07-14 17:49] LABS: Glucose - Point of Care 270 mg/dl (70-99)
[2024-07-14 20:31] LABS: Glucose - Point of Care 210 mg/dl (70-99)
[2024-07-14 21:03] LABS: Hematocrit 24.1 % (37.0-47.0); Hemoglobin 7.8 g/dL (12.0-16.0)
[2024-07-14] MEDS: XANAX 0.5 MG PO (21:08)
[2024-07-15 03:11] VITALS: BP 132/52
[2024-07-15 06:00] VITALS: BMI 28.1
--- NOTE | 2024-07-15 06:00 | W.PN.GI.CBS2 ---
Today's Communication / Plan
-
See assessment and plan for details.
Assessment / Plan
-
1. Anemia: Multifactorial, with history of iron deficiency for the past few years, likely some component of anemia of chronic disease as well, now in the setting of Brilinta post NC and stent last fall, possibly with some acute blood loss component
though this seems less likely. She has responded appropriately to transfusion and is overall feeling much better, no significant gross bleeding now. Again, the workup of her iron deficiency is unclear though has been ongoing for the past couple of
years on oral iron. Still awaiting records from [place]. May tentatively plan EGD and colonoscopy (which she has never had) tomorrow which would be 7 days off Brilinta.
2. Biliary stent: Again, unclear indication. On review of abdominal x-ray she appears to have a plastic biliary stent as well as single pigtail pancreatic duct stent. Her LFTs are normal. It is odd that she has retained plastic biliary and
pancreatic stents for 2 years. Still awaiting records from [place] for clarification.
Subjective
Subjective
Date of Service: July 15, 2024
Patient feels okay, no new events overnight. No signs of bleeding. Tolerated diet without difficulty. Feels her energy is better.
Objective
Data Reviewed
Laboratory Data:
Laboratory Results
PT 14.2 Sec (11.4-14.6) 07/13/24 11:32
INR 1.07 07/13/24 11:32
APTT 33.7 Sec (23.4-35.0) 07/13/24 11:32
Total Bilirubin 0.3 mg/dl (0.2-1.3) 07/13/24 12:20
AST 24 U/L (14-36) 07/13/24 12:20
ALT 12 U/L (0-35) 07/13/24 12:20
Alkaline Phosphatase 88 U/L (38-126) 07/13/24 12:20
Vital Signs and I&O:
Vital Signs
Temp Pulse Resp BP Pulse Ox
98.1 F 63 17 132/52 98
07/15/24 03:11 07/15/24 03:11 07/15/24 03:11 07/15/24 03:11 07/15/24 03:11
I&O
07/13/24 07/14/24 07/15/24
06:59 06:59 06:59
Intake Total 1050 / 1050 660 / 660
Balance 1050 / 1050 660 / 660
Physical Exam
Physical Exam
General: NAD
Abdomen: normal bowel sounds, soft, no tenderness, no masses or bruits, no ascites
[2024-07-15 07:35] VITALS: BP 141/53
[2024-07-15 07:48] LABS: Glucose - Point of Care 104 mg/dl (70-99)
[2024-07-15] MEDS: FEOSOL 325 MG PO ×2 (08:13→21:10)
[2024-07-15] MEDS: ACTOS 30 MG PO (08:13)
[2024-07-15] MEDS: FARXIGA 10 MG PO (08:13)
[2024-07-15] MEDS: CRESTOR 20 MG PO (08:13)
[2024-07-15] MEDS: LOW STRENGTH ASPIRIN 81 MG PO (08:13)
[2024-07-15] MEDS: OCUVITE SOFTGEL 1 CAP PO (08:13)
[2024-07-15] MEDS: TOPROL XL 25 MG PO ×2 (08:13→21:10)
[2024-07-15] MEDS: ENTRESTO 24 MG/26 MG 1 TAB PO ×2 (08:13→21:10)
[2024-07-15 08:43] LABS: Hematocrit 25.1 % (37.0-47.0); Hemoglobin 8.4 g/dL (12.0-16.0); Mean Corp Hgb Conc. 33.5 g/dL (33.0-37.0); Mean Corpuscular Hgb 29.8 pg (27.0-31.0); Platelet Count 258 10^3/uL (130-400); Red Blood Cell Count 2.82 10^6/uL (4.20-5.40); Red Cell Dist. Width 14.3 % (11.5-14.5); White Blood Cell Count 5.8 10^3/uL (4.8-10.8)
[2024-07-15 08:55] LABS: Blood Urea Nitrogen 39 mg/dl (7-17); Calcium 8.1 mg/dl (8.4-10.2); Carbon Dioxide 18 mmol/L (22-30); Chloride 114 mmol/L (98-107); Estimated Creatinine Clearance 29 ml/min; Glucose 97 mg/dl (70-99); Potassium 4.4 mmol/L (3.5-5.1); Sodium 139 mmol/L (135-145); eGFR 41.57
[2024-07-15 11:05] VITALS: BP 156/57
--- NOTE | 2024-07-15 11:51 | W.PN.HOSP.TC ---
Today's Communication/Plan
-
c/w ISS
ok to c/w aspirin
Bowel prep and NPO for tomorrow
Assessment / Plan
Assessment / Plan
Physical exam:
General: Well Developed, Well Nourished, No Apparent Distress, Comfortable and Conversant
HEENT: NormoCephalic, Moist mucous membranes, Atraumatic
Respiratory: Clear and Non Labored Respirations
Cardiac: S1/S2 and Regular Rhythm; No Rub or Gallop
GI: Soft, Non Tender, Non Distended and Normal Bowel Sounds
Musculoskeletal: No Edema
: NO Lim
Neuro: Awake, Alert, AO x 3 and Nonfocal/grossly intact
Psych: Calm and Intact Judgment/Insight
# Acute blood loss anemia due to GI bleed in setting of Brilinta
hgb 6.7, hct 21.4 on admission
Associated iron deficiency anemia; Suspect there is some component of anemia of chronic disease as well
Continue with IV iron day # 3
Transfused 1 unit 07/13 on admission
Monitor hemoglobin
Plan for EGD/colonoscopy per GI this admission on Friday. Now off Brilinta
Transfuse as needed
Monitor for further bleeding
History of biliary stent per patient, abdominal x-ray confirmed biliary stent as well as pancreatic ductal stent. Patient does not want to go back to GI at [facility]. Awaiting records from [place].
essential hypertension
- continue metoprolol
ischemic cardiomyopathy
ECHO (05/14/2024): LV ejection fraction is 60-65%. No regional wall motion abnormalities are seen.
Normal right ventricular size and function.
Aortic sclerosis without stenosis.
Mild tricuspid regurgitation. Estimated pulmonary artery pressure of 30-35 mmHg.
Compared to previous echo on 02/03/2024, overall cardiac function has improved (previous LVEF was 35-40%). The degree of tricuspid regurgitation has improved with a decline in PAP (previously moderate
to severe with a PAP of 75-80 mmHg).
- continue Entresto, dapagliflozin and metoprolol
Per cardiology hold Brilinta indefinitely
CAD
Status post IVUS guided shockwave lithotripsy facilitated PCI to the left circumflex on 02/05/2024
-The plan was for DAPT with aspirin 81 mg and ticagrelor for 1 year, ticagrelor last dose on 07/09/2024 when she had a retinal hemorrhage, continue to hold
- continue aspirin and rosuvastatin
Stable EKG and she is without chest pain
CKD IIIb
BUN 55, Creat 1.4
- monitor BMP
DM II
- AccuCheck AC & HS
- SSI
- continue pioglitazone
anxiety/depression
- continue alprazolam PRN
Code status: DNR
DVT prophylaxis: SCDs
Total time spent to see the patient, examine the patient, review data and lab results, discuss treatment plan with patient and nursing staff around 55 minutes
Anticipated Discharge: > 48 hours
Subjective/Interval History
-
Date of Service: July 15, 2024
No complaints
No sob
No chest pain
Objective Data
-
Labs:
Laboratory Results
07/15/24
07:24
WBC 5.8
Hgb 8.4 L
Hct 25.1 L
Plt Count 258
Sodium 139
Potassium 4.4
Chloride 114 H
Carbon Dioxide 18 L
BUN 39 H
Creatinine 1.3 H
Glucose 97
Calcium 8.1 L
Vital Signs:
Vital Signs
Temp Pulse Resp BP Pulse Ox
97.9 F 63 18 156/57 98
07/15/24 11:05 07/15/24 11:05 07/15/24 11:05 07/15/24 11:05 07/15/24 11:05
I&O
07/14/24 07/15/24 07/16/24
06:59 06:59 06:59
Intake Total 1050 / 1050 1140 / 1140
Balance 1050 / 1050 1140 / 1140
[2024-07-15 12:36] LABS: Glucose - Point of Care 123 mg/dl (70-99)
--- NOTE | 2024-07-15 13:29 | W.PN.UPDATE ---
Update Note
Progress Note Update
Records were finally received from [facility] which were reviewed. She was admitted in 2020 with hemoglobin in the sevens. She underwent an endoscopic ultrasound for painless jaundice that showed a 3 cm mucosal mass extending into the distal bile
duct, as well as a pancreatic cyst which was 1.5 cm. Causing biliary obstruction with CBD dilated to 2 cm. In the report it is noted that this was likely the cause of her anemia as well, though she did not have colonoscopy. A biliary
sphincterotomy was performed and a 10 [place] plastic stent was placed, pancreatic sphincterotomy and plastic stent was also performed. 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
adenoma. She was to follow-up with GI and surgery though did not do so.
--- NOTE | 2024-07-15 15:03 | PN.CDI ---
Addendum entered and electronically signed by Lisa Jacques MD 07/15/24 15:09:
Acute blood loss anemia due to GI bleed in setting of Brilinta
Original Note:
CDI
- -
CDI:
Physician Documentation Request
Admit Date: 07/13/24 15:29
Dear Doctor Georgie,
Patient admitted with GI bleed.
07/15 PN, 'Acute blood loss anemia due to GI bleed in setting of Brilinta.'
Please clarify the likely relationship between these conditions:
Yes, ABLA/ GI bleed is associated with/enhanced by Brilinta.
No, ABLA/ GI bleed is not associated with/enhanced by Brilinta but it is due to ___. (Please specify)
Unable to determine
Use of terms such as suspected, likely, concern for, or probable (associated with a specific diagnosis that is being evaluated, monitored, or treated as if it exists) are acceptable and can be coded in the inpatient setting, when documented at the
time of discharge.
Thank you,
Olga SOLITARIO,RN,CCDS
CDI Specialist
Available via [facility] text
Please use your independent medical judgment in providing your response.
[2024-07-15 15:05] VITALS: BP 148/49
[2024-07-15] MEDS: FERRLECIT 110 MG IV (15:05)
[2024-07-15 17:01] LABS: Glucose - Point of Care 154 mg/dl (70-99)
[2024-07-15] MEDS: NULYTELY SOLUTION 4 LITERS PO (18:34)
[2024-07-15 19:00] VITALS: BP 167/71
[2024-07-15 21:41] LABS: Glucose - Point of Care 128 mg/dl (70-99)
[2024-07-15 23:00] VITALS: BP 161/64
[2024-07-16] VITALS (8 sets, daily range): BP systolic 13–165; BP diastolic 40–69; BMI 27.7
[2024-07-16 06:03] LABS: Glucose - Point of Care 102 mg/dl (70-99)
[2024-07-16] MEDS: ENTRESTO 24 MG/26 MG 1 TAB PO ×2 (08:30→19:42)
[2024-07-16] MEDS: FARXIGA 10 MG PO (08:30)
[2024-07-16] MEDS: TOPROL XL 25 MG PO ×2 (08:30→19:42)
[2024-07-16] MEDS: ACTOS 30 MG PO (08:30)
[2024-07-16] MEDS: CRESTOR 20 MG PO (08:30)
[2024-07-16] MEDS: LOW STRENGTH ASPIRIN 81 MG PO (08:31)
[2024-07-16] MEDS: OCUVITE SOFTGEL 1 CAP PO (08:31)
[2024-07-16] MEDS: FEOSOL 325 MG PO ×2 (08:31→19:42)
[2024-07-16 10:17] LABS: Hemoglobin 9.1 g/dL (12.0-16.0); Mean Corp Hgb Conc. 32.5 g/dL (33.0-37.0); Mean Corpuscular Hgb 29.6 pg (27.0-31.0); Mean Corpuscular Volume 91.2 fL (81.0-99.0); Mean Platelet Volume 8.8 fL (7.4-10.4); Platelet Count 302 10^3/uL (130-400); Red Blood Cell Count 3.07 10^6/uL (4.20-5.40); Red Cell Dist. Width 14.1 % (11.5-14.5); White Blood Cell Count 6.7 10^3/uL (4.8-10.8)
[2024-07-16 10:38] LABS: Blood Urea Nitrogen 26 mg/dl (7-17); Calcium 8.6 mg/dl (8.4-10.2); Carbon Dioxide 21 mmol/L (22-30); Chloride 112 mmol/L (98-107); Estimated Creatinine Clearance 31 ml/min; Glucose 137 mg/dl (70-99); Potassium 5.1 mmol/L (3.5-5.1); Sodium 138 mmol/L (135-145); eGFR 45.76
--- NOTE | 2024-07-16 10:41 | W.PN.HOSP.TC ---
Today's Communication/Plan
-
.
Assessment / Plan
Assessment / Plan
Physical exam:
General: Well Developed, Well Nourished, No Apparent Distress, Comfortable and Conversant
HEENT: NormoCephalic, Moist mucous membranes, Atraumatic, alopecia noted
Respiratory: Clear and Non Labored Respirations
Cardiac: S1/S2 and Regular Rhythm; No Rub or Gallop
GI: Soft, Non Tender, Non Distended and Normal Bowel Sounds
Musculoskeletal: No Edema
: NO Lim
Neuro: Awake, Alert, AO x 3 and Nonfocal/grossly intact
Psych: Calm and Intact Judgment/Insight
# Acute blood loss anemia due to GI bleed in setting of Brilinta
hgb 6.7, hct 21.4 on admission
Associated iron deficiency anemia; Suspect there is some component of anemia of chronic disease as well
Continue with IV iron day # 3
Transfused 1 unit 07/13 on admission
Monitor hemoglobin
Plan for EGD/colonoscopy per GI this admission today. Now off Brilinta
Transfuse as needed
Monitor for further bleeding
History of biliary stent per patient, abdominal x-ray confirmed biliary stent as well as pancreatic ductal stent. Patient does not want to go back to GI at [facility]. Awaiting records from [facility].
essential hypertension
- continue metoprolol
ischemic cardiomyopathy
ECHO (05/14/2024): LV ejection fraction is 60-65%. No regional wall motion abnormalities are seen.
Normal right ventricular size and function.
Aortic sclerosis without stenosis.
Mild tricuspid regurgitation. Estimated pulmonary artery pressure of 30-35 mmHg.
Compared to previous echo on 02/03/2024, overall cardiac function has improved (previous LVEF was 35-40%). The degree of tricuspid regurgitation has improved with a decline in PAP (previously moderate
to severe with a PAP of 75-80 mmHg).
- continue Entresto, dapagliflozin and metoprolol
Per cardiology hold Brilinta indefinitely
CAD
Status post IVUS guided shockwave lithotripsy facilitated PCI to the left circumflex on 02/05/2024
-The plan was for DAPT with aspirin 81 mg and ticagrelor for 1 year, ticagrelor last dose on 07/09/2024 when she had a retinal hemorrhage, continue to hold
- continue aspirin and rosuvastatin
Stable EKG and she is without chest pain
CKD IIIb
suspect secondary to DM and HTN
BUN 26, Creat 1.2
No hematuria
# Alopecia
Ordered Minoxidil foam as OP.
DM II
- AccuCheck AC & HS
- SSI
- continue pioglitazone
anxiety/depression
- continue alprazolam PRN
Code status: DNR
DVT prophylaxis: SCDs
Total time spent to see the patient, examine the patient, review data and lab results, discuss treatment plan with patient and nursing staff around 55 minutes
Anticipated Discharge: Within 24 hours
Subjective/Interval History
-
Date of Service: July 16, 2024
No abdominal pain
No nausea
No fevers
Objective Data
-
Labs:
Laboratory Results
07/16/24
09:55
WBC 6.7
Hgb 9.1 L
Hct 28.0 L
Plt Count 302
Sodium 138
Potassium 5.1
Chloride 112 H
Carbon Dioxide 21 L
BUN 26 H
Creatinine 1.2 H
Glucose 137 H
Calcium 8.6
Vital Signs:
Vital Signs
Temp Pulse Resp BP Pulse Ox
98.1 F 71 18 155/52 99
07/16/24 07:05 07/16/24 07:05 07/16/24 07:05 07/16/24 07:05 07/16/24 07:05
I&O
07/15/24 07/16/24 07/17/24
06:59 06:59 06:59
Intake Total 1140 / 1140 3780 / 3780
Balance 1140 / 1140 3780 / 3780
[2024-07-16 12:37] LABS: Glucose - Point of Care 131 mg/dl (70-99)
--- NOTE | 2024-07-16 13:25 | PTCARENOTE ---
pt returned from GI lab VS WNL, no c/o pain.. no change in physical assessment CB in reach. instructed on use.
--- NOTE | 2024-07-16 13:46 | CM ---
Patient remains Independent and able to function at baseline.
Plan: Case management will continue to follw and assist with discharge planning. Home no needs.
[2024-07-16] MEDS: FERRLECIT 110 MG IV (14:37)
[2024-07-16 14:40] LABS: Glucose - Point of Care 122 mg/dl (70-99)
[2024-07-16 16:38] LABS: Glucose - Point of Care 162 mg/dl (70-99)
[2024-07-16 21:26] LABS: Glucose - Point of Care 125 mg/dl (70-99)
[2024-07-16] MEDS: XANAX 0.5 MG PO (22:53)
[2024-07-17 06:00] VITALS: BMI 27.6
[2024-07-17 07:09] VITALS: BP 128/45
[2024-07-17 07:19] LABS: Glucose - Point of Care 93 mg/dl (70-99)
[2024-07-17] MEDS: ACTOS 30 MG PO (07:36)
[2024-07-17] MEDS: ENTRESTO 24 MG/26 MG 1 TAB PO ×2 (07:36→20:25)
[2024-07-17] MEDS: FARXIGA 10 MG PO (07:36)
[2024-07-17] MEDS: CRESTOR 20 MG PO (07:36)
[2024-07-17] MEDS: TOPROL XL 25 MG PO ×2 (07:36→20:28)
[2024-07-17] MEDS: LOW STRENGTH ASPIRIN 81 MG PO (07:37)
[2024-07-17] MEDS: FEOSOL 325 MG PO ×2 (07:37→20:24)
[2024-07-17] MEDS: OCUVITE SOFTGEL 1 CAP PO (07:37)
--- NOTE | 2024-07-17 09:29 | W.PN.HOSP.TC ---
Today's Communication/Plan
-
BMP today
CAT scan with IV contrast study later
Assessment / Plan
Assessment / Plan
Physical exam:
General: No Apparent Distress, Comfortable and Conversant
HEENT: NormoCephalic, Moist mucous membranes, Atraumatic, alopecia noted
Respiratory: Clear and Non Labored Respirations
Cardiac: S1/S2 and Regular Rhythm; No Rub or Gallop
GI: Soft, Non Tender, Non Distended and Normal Bowel Sounds
Musculoskeletal: No Edema
: NO Lim
Neuro: Awake, Alert, AO x 3 and Nonfocal/grossly intact
Psych: Calm and Intact Judgment/Insight
# Acute blood loss anemia due to GI bleed in setting of Brilinta
hgb 6.7, hct 21.4 on admission
Associated iron deficiency anemia; Suspect there is some component of anemia of chronic disease as well
Continue with IV iron day # 5
Transfused 1 unit 07/13 on admission
Colonoscopy: single bleeding colonic angioectasia. 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 few duodenal polyps
Per discussions: Patient had endoscopic procedure in [facility] a few years ago, reportedly had adenoma and placement of biliary stents at the time. Patient was advised to have Whipple surgery but declined. Abdominal x-ray confirmed biliary
stent as well as pancreatic ductal stent. Patient did not want to go back to GI at [facility].
Discussed with GI doctor, will do BMP today and plan for CT study with contrast
#essential hypertension
- continue metoprolol
ischemic cardiomyopathy
ECHO (05/14/2024): LV ejection fraction is 60-65%. No regional wall motion abnormalities are seen.
Normal right ventricular size and function.
Aortic sclerosis without stenosis.
Mild tricuspid regurgitation. Estimated pulmonary artery pressure of 30-35 mmHg.
Compared to previous echo on 02/03/2024, overall cardiac function has improved (previous LVEF was 35-40%). The degree of tricuspid regurgitation has improved with a decline in PAP (previously moderate
to severe with a PAP of 75-80 mmHg).
- continue Entresto, dapagliflozin and metoprolol
Per cardiology hold Brilinta indefinitely
CAD
Status post IVUS guided shockwave lithotripsy facilitated PCI to the left circumflex on 02/05/2024
-The plan was for DAPT with aspirin 81 mg and ticagrelor for 1 year, ticagrelor last dose on 07/09/2024 when she had a retinal hemorrhage, continue to hold
- continue aspirin and rosuvastatin
Stable EKG and she is without chest pain
CKD IIIb
suspect secondary to DM and HTN
BUN 26, Creat 1.2
No hematuria
Order BMP
# Alopecia
Ordered Minoxidil foam as OP.
DM II
- AccuCheck AC & HS
- SSI
- continue pioglitazone
anxiety/depression
- continue alprazolam PRN
Code status: DNR
DVT prophylaxis: SCDs
Total time spent to see the patient, examine the patient, review data and lab results, discuss treatment plan with patient and nursing staff around 55 minutes
Anticipated Discharge: > 48 hours
Subjective/Interval History
-
Date of Service: July 17, 2024
No abdominal pain
No sob
No fever
Objective Data
-
Vital Signs:
Vital Signs
Temp Pulse Resp BP Pulse Ox
97.9 F 69 17 128/45 97
07/17/24 07:09 07/17/24 07:09 07/17/24 07:09 07/17/24 07:09 07/17/24 07:09
I&O
07/16/24 07/17/24 07/18/24
06:59 06:59 06:59
Intake Total 3780 / 3780 1200 / 1200
Balance 3780 / 3780 1200 / 1200
[2024-07-17 11:49] LABS: Glucose - Point of Care 127 mg/dl (70-99)
[2024-07-17] MEDS: FERRLECIT 110 MG IV (13:04)
--- NOTE | 2024-07-17 13:21 | W.PN.GI.CBS2 ---
Today's Communication / Plan
-
Plan is for CT scan of the abdomen and pelvis with contrast after repeat creatinine.
ERCP for metal stent placement on Friday.
Once pathology results are back, hepatobiliary surgery evaluation.
As per patient, Brilinta is not going to be restarted by her life skills consultant. Will need to confirm this with medical team.
Assessment / Plan
-
1. Anemia: Multifactorial, with history of iron deficiency
Upper endoscopy showing - LA Grade D esophagitis with no bleeding. Biopsied. - 3 cm hiatal hernia.- Hemorrhagic gastropathy. - Duodenal mass. Biopsied.
Colonoscopy showing single angiectasia in the transverse colon status post APC.
Plan is for CT scan of the abdomen and pelvis with contrast after repeat creatinine.
ERCP for metal stent placement on Friday.
Once pathology results are back, hepatobiliary surgery evaluation.
As per patient, Brilinta is not going to be restarted by her life skills consultant. Will need to confirm this with medical team.
Subjective
Subjective
Date of Service: July 17, 2024
Patient denies any abdominal pain, nausea or vomiting. Tolerating diet
Objective
Data Reviewed
Laboratory Data:
Laboratory Results
07/16/24 09:55
Laboratory Results
PT 14.2 Sec (11.4-14.6) 07/13/24 11:32
INR 1.07 07/13/24 11:32
APTT 33.7 Sec (23.4-35.0) 07/13/24 11:32
Total Bilirubin 0.3 mg/dl (0.2-1.3) 07/13/24 12:20
AST 24 U/L (14-36) 07/13/24 12:20
ALT 12 U/L (0-35) 07/13/24 12:20
Alkaline Phosphatase 88 U/L (38-126) 07/13/24 12:20
Vital Signs and I&O:
Vital Signs
Temp Pulse Resp BP Pulse Ox
97.9 F 69 17 128/45 97
07/17/24 07:09 07/17/24 07:09 07/17/24 07:09 07/17/24 07:09 07/17/24 07:09
I&O
07/16/24 07/17/24 07/18/24
06:59 06:59 06:59
Intake Total 3780 / 3780 1200 / 1200
Balance 3780 / 3780 1200 / 1200
Physical Exam
Physical Exam
GI: Soft, Non Distended and Non Tender
[2024-07-17 13:28] LABS: ALT (SGPT) 14 U/L (0-35); AST (SGOT) 29 U/L (14-36); Albumin 2.5 g/dl (3.5-5.0); Alkaline Phosphatase 81 U/L (38-126); Blood Urea Nitrogen 26 mg/dl (7-17); Calcium 8.5 mg/dl (8.4-10.2); Carbon Dioxide 23 mmol/L (22-30); Chloride 111 mmol/L (98-107); Estimated Creatinine Clearance 29 ml/min; Glucose 110 mg/dl (70-99); Potassium 4.3 mmol/L (3.5-5.1); Sodium 138 mmol/L (135-145); Total Bilirubin 0.4 mg/dl (0.2-1.3); Total Protein 4.9 g/dl (6.3-8.2); eGFR 41.57
[2024-07-17 15:17] VITALS: BP 159/58
[2024-07-17 16:59] LABS: Glucose - Point of Care 144 mg/dl (70-99)
[2024-07-17] MEDS: NSS 1000 IV (17:01)
[2024-07-17 21:28] LABS: Glucose - Point of Care 143 mg/dl (70-99)
[2024-07-17] MEDS: XANAX 0.5 MG PO (21:37)
[2024-07-17 23:13] VITALS: BP 122/45
[2024-07-18] MEDS: NSS 1000 IV (04:22)
[2024-07-18 06:00] VITALS: BMI 27.8
[2024-07-18 07:00] VITALS: BP 149/60
[2024-07-18 07:31] VITALS: BP 144/47
[2024-07-18 07:50] LABS: Glucose - Point of Care 101 mg/dl (70-99)
[2024-07-18] MEDS: OMNIPAQUE 50 ML PO (08:00)
[2024-07-18] MEDS: OCUVITE SOFTGEL 1 CAP PO (08:53)
[2024-07-18] MEDS: FEOSOL 325 MG PO ×2 (08:53→19:57)
[2024-07-18] MEDS: CRESTOR 20 MG PO (08:53)
[2024-07-18] MEDS: ACTOS 30 MG PO (08:53)
[2024-07-18] MEDS: LOW STRENGTH ASPIRIN 81 MG PO (08:53)
[2024-07-18] MEDS: FARXIGA 10 MG PO (08:53)
[2024-07-18] MEDS: TOPROL XL 25 MG PO ×2 (08:58→19:57)
--- NOTE | 2024-07-18 08:58 | W.PN.HOSP.TC ---
Addendum entered and electronically signed by Lisa Jacques MD 07/18/24 11:23:
addendum
Patient has claustrophobia, requested Xanax before CT. Will increase frequency of Xanax
End
Original Note:
Today's Communication/Plan
-
IV fluid for renal prep, stop IV fluids [address] scan
Hold Entresto for today
Blood work tomorrow
Assessment / Plan
Assessment / Plan
Physical exam:
General: No Apparent Distress, Comfortable and Conversant
HEENT: NormoCephalic, Moist mucous membranes, Atraumatic, alopecia noted
Respiratory: Clear and Non Labored Respirations
Cardiac: S1/S2 and Regular Rhythm; No Rub or Gallop
GI: Soft, Non Tender, Non Distended and Normal Bowel Sounds
Musculoskeletal: No Edema
: NO Lim
Neuro: Awake, Alert, AO x 3 and Nonfocal/grossly intact
Psych: Calm and Intact Judgment/Insight
# Acute blood loss anemia due to GI bleed in setting of Brilinta
hgb 6.7, hct 21.4 on admission
Associated iron deficiency anemia; Suspect there is some component of anemia of chronic disease as well
finished IV iron, 5 doses.
Transfused 1 unit 07/13 on admission
Colonoscopy: single bleeding colonic angioectasia. 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 few duodenal polyps
Per discussions: Patient had endoscopic procedure in [facility] a few years ago, reportedly had adenoma and placement of biliary stents at the time. Patient was advised to have Whipple surgery but declined. Abdominal x-ray confirmed biliary
stent as well as pancreatic ductal stent. Patient did not want to go back to GI at [place].
Discussed with GI doctor, will order for CT study with contrast
# pre CT renal prep
Started on low dose NS since last night, will c/w [address]
Hold Entresto today
#essential hypertension
- continue metoprolol
ischemic cardiomyopathy
ECHO (05/14/2024): LV ejection fraction is 60-65%. No regional wall motion abnormalities are seen.
Normal right ventricular size and function.
Aortic sclerosis without stenosis.
Mild tricuspid regurgitation. Estimated pulmonary artery pressure of 30-35 mmHg.
Compared to previous echo on 02/03/2024, overall cardiac function has improved (previous LVEF was 35-40%). The degree of tricuspid regurgitation has improved with a decline in PAP (previously moderate
to severe with a PAP of 75-80 mmHg).
- On Entresto, dapagliflozin and metoprolol
Per cardiology hold Brilinta indefinitely
CAD
Status post IVUS guided shockwave lithotripsy facilitated PCI to the left circumflex on 02/05/2024
-The plan was for DAPT with aspirin 81 mg and ticagrelor for 1 year, ticagrelor last dose on 07/09/2024 when she had a retinal hemorrhage, continue to hold
- continue aspirin and rosuvastatin
Stable EKG and she is without chest pain
CKD IIIb
suspect secondary to DM and HTN
BUN 26, Creat 1.2
No hematuria
Order BMP
# Alopecia
Ordered Minoxidil foam as OP.
DM II
- AccuCheck AC & HS
- SSI
- continue pioglitazone
anxiety/depression
- continue alprazolam PRN
Code status: DNR
DVT prophylaxis: SCDs
Total time spent to see the patient, examine the patient, review data and lab results, discuss treatment plan with patient and nursing staff around 55 minutes
Anticipated Discharge: > 48 hours
Subjective/Interval History
-
Date of Service: July 18, 2024
No chest pain
No sob
No abdominal pain
Objective Data
-
Vital Signs:
Vital Signs
Temp Pulse Resp BP Pulse Ox
98.2 F 57 17 144/47 100
07/18/24 07:31 07/18/24 07:31 07/18/24 07:31 07/18/24 07:31 07/18/24 07:31
I&O
07/17/24 07/18/24 07/19/24
06:59 06:59 06:59
Intake Total 1200 / 1200 660 / 660
Balance 1200 / 1200 660 / 660
[2024-07-18] MEDS: ENTRESTO 24 MG/26 MG PO (09:02)
[2024-07-18] MEDS: XANAX 0.5 MG PO ×2 (09:54→22:03)
[2024-07-18 11:28] LABS: Glucose - Point of Care 97 mg/dl (70-99)
--- NOTE | 2024-07-18 12:21 | W.PN.GI.CBS2 ---
Today's Communication / Plan
-
CT scan of the abdomen and pelvis with contrast this morning showing duodenal mass without any evidence of metastatic disease, previously placed pancreatic and bile duct stents noted though not metallic but plastic, mild intra and extrahepatic bile
duct dilation noted.
ERCP for metal stent placement on Friday.
Once pathology results are back, hepatobiliary surgery evaluation.
As per patient, Brilinta is not going to be restarted by her knockout machine operator. Will need to confirm this with medical team.
Okay for low residue diet but n.p.o. past midnight.
Assessment / Plan
-
1. Anemia: Multifactorial, with history of iron deficiency
Upper endoscopy showing - LA Grade D esophagitis with no bleeding. Biopsied. - 3 cm hiatal hernia.- Hemorrhagic gastropathy. - Duodenal mass. Biopsied.
Colonoscopy showing single angiectasia in the transverse colon status post APC.
CT scan of the abdomen and pelvis with contrast this morning showing duodenal mass without any evidence of metastatic disease, previously placed pancreatic and bile duct stents noted though not metallic but plastic, mild intra and extrahepatic bile
duct dilation noted.
ERCP for metal stent placement on Friday.
Once pathology results are back, hepatobiliary surgery evaluation.
As per patient, Brilinta is not going to be restarted by her knockout machine operator. Will need to confirm this with medical team.
Okay for low residue diet but n.p.o. past midnight.
Subjective
Subjective
Date of Service: July 18, 2024
Patient without any abdominal pain, nausea or vomiting. Tolerating diet
Objective
Data Reviewed
Laboratory Data:
Laboratory Results
07/16/24 09:55
07/17/24 12:35
Laboratory Results
PT 14.2 Sec (11.4-14.6) 07/13/24 11:32
INR 1.07 07/13/24 11:32
APTT 33.7 Sec (23.4-35.0) 07/13/24 11:32
Total Bilirubin 0.4 mg/dl (0.2-1.3) 07/17/24 12:35
AST 29 U/L (14-36) 07/17/24 12:35
ALT 14 U/L (0-35) 07/17/24 12:35
Alkaline Phosphatase 81 U/L (38-126) 07/17/24 12:35
Vital Signs and I&O:
Vital Signs
Temp Pulse Resp BP Pulse Ox
98.2 F 67 17 170/65 100
07/18/24 07:31 07/18/24 08:58 07/18/24 07:31 07/18/24 08:58 07/18/24 09:34
I&O
07/17/24 07/18/24 07/19/24
06:59 06:59 06:59
Intake Total 1200 / 1200 660 / 660
Balance 1200 / 1200 660 / 660
Physical Exam
Physical Exam
GI: Soft, Non Distended and Non Tender
[2024-07-18 14:48] LABS: CA 19-9 11 U/mL (<=35)
[2024-07-18 15:22] VITALS: BP 134/58
[2024-07-18 16:32] LABS: Glucose - Point of Care 125 mg/dl (70-99)
[2024-07-18] MEDS: NSS IV (16:53)
[2024-07-18 21:19] LABS: Glucose - Point of Care 135 mg/dl (70-99)
[2024-07-18 23:00] VITALS: BP 134/38
[2024-07-19 06:00] VITALS: BMI 28.2
[2024-07-19 06:22] LABS: Glucose - Point of Care 105 mg/dl (70-99)
[2024-07-19 07:15] LABS: Hematocrit 24.7 % (37.0-47.0); Hemoglobin 8.1 g/dL (12.0-16.0); Mean Corp Hgb Conc. 32.8 g/dL (33.0-37.0); Mean Corpuscular Hgb 30.2 pg (27.0-31.0); Mean Corpuscular Volume 92.2 fL (81.0-99.0); Platelet Count 237 10^3/uL (130-400); Red Blood Cell Count 2.68 10^6/uL (4.20-5.40); Red Cell Dist. Width 14.5 % (11.5-14.5); White Blood Cell Count 5.6 10^3/uL (4.8-10.8)
[2024-07-19 07:23] VITALS: BP 146/56
[2024-07-19 07:23] LABS: ALT (SGPT) 13 U/L (0-35); AST (SGOT) 27 U/L (14-36); Albumin 2.3 g/dl (3.5-5.0); Alkaline Phosphatase 78 U/L (38-126); Blood Urea Nitrogen 32 mg/dl (7-17); Calcium 8.1 mg/dl (8.4-10.2); Carbon Dioxide 19 mmol/L (22-30); Chloride 113 mmol/L (98-107); Estimated Creatinine Clearance 25 ml/min; Glucose 94 mg/dl (70-99); Potassium 4.3 mmol/L (3.5-5.1); Sodium 136 mmol/L (135-145); Total Bilirubin 0.3 mg/dl (0.2-1.3); Total Protein 4.6 g/dl (6.3-8.2); eGFR 35.01
[2024-07-19] MEDS: ACTOS PO (07:34)
[2024-07-19] MEDS: TOPROL XL PO (07:34)
[2024-07-19] MEDS: OCUVITE SOFTGEL PO (07:34)
[2024-07-19] MEDS: CRESTOR PO (07:34)
[2024-07-19] MEDS: LOW STRENGTH ASPIRIN PO (07:34)
[2024-07-19] MEDS: FARXIGA PO (07:34)
[2024-07-19] MEDS: FEOSOL PO (07:34)
[2024-07-19 11:30] VITALS: BP 168/61
--- NOTE | 2024-07-19 11:41 | CM ---
Patient continues to need medical w/u. Still physically functioning at baseline. Will return home when cleared.
Plan: Case management will continue to follow and assist with discharge planning.
[2024-07-19] MEDS: APRESOLINE 10 MG IV (11:56)
[2024-07-19 12:00] LABS: Glucose - Point of Care 82 mg/dl (70-99)
[2024-07-19 13:19] VITALS: BP 136/49
--- NOTE | 2024-07-19 13:23 | W.PN.HOSP.TC ---
Today's Communication/Plan
-
Assessment / Plan
Assessment / Plan
Physical exam:
General: No Apparent Distress, Comfortable and Conversant
HEENT: NormoCephalic, Moist mucous membranes, Atraumatic, alopecia noted
Respiratory: Clear and Non Labored Respirations
Cardiac: S1/S2 and Regular Rhythm; No Rub or Gallop
GI: Soft, Non Tender, Non Distended and Normal Bowel Sounds
Musculoskeletal: No Edema
: NO Lim
Neuro: Awake, Alert, AO x 3 and Nonfocal/grossly intact
Psych: Calm and Intact Judgment/Insight
# Acute blood loss anemia due to GI bleed in setting of Brilinta
-hgb 6.7, hct 21.4 on admission
-Associated iron deficiency anemia; Suspect there is some component of anemia of chronic disease as well
-finished IV iron, 5 doses.
-Transfused 1 unit 07/13 on admission
-Hemoglobin currently stable
-Colonoscopy: single bleeding colonic angioectasia. 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 few duodenal polyps
-Per discussions: Patient had endoscopic procedure in [facility] a few years ago, reportedly had adenoma and placement of biliary stents at the time. Patient was advised to have Whipple surgery but declined.
-Abdominal x-ray confirmed biliary stent as well as pancreatic ductal stent. Patient did not want to go back to GI at [place].
-N.p.o. after midnight for planned ERCP with metal biliary stent placement today 07/19
Left renal lesion:
-Subcentimeter indeterminate left renal lesion noted incidentally on CT abdomen
-Recommend outpatient workup with dedicated renal ultrasound
#essential hypertension
- continue metoprolol
ischemic cardiomyopathy
ECHO (05/14/2024): LV ejection fraction is 60-65%. No regional wall motion abnormalities are seen.
Normal right ventricular size and function.
Aortic sclerosis without stenosis.
Mild tricuspid regurgitation. Estimated pulmonary artery pressure of 30-35 mmHg.
Compared to previous echo on 02/03/2024, overall cardiac function has improved (previous LVEF was 35-40%). The degree of tricuspid regurgitation has improved with a decline in PAP (previously moderate
to severe with a PAP of 75-80 mmHg).
- Restart home Entresto, continue dapagliflozin and metoprolol
-Per cardiology hold Brilinta indefinitely
CAD
Status post IVUS guided shockwave lithotripsy facilitated PCI to the left circumflex on 02/05/2024
-The plan was for DAPT with aspirin 81 mg and ticagrelor for 1 year, ticagrelor last dose on 07/09/2024 when she had a retinal hemorrhage, continue to hold
- continue aspirin and rosuvastatin
Stable EKG and she is without chest pain
CKD IIIb
-suspect secondary to DM and HTN
-Creatinine stable 1.2-1.5
-Monitor
# Alopecia
Ordered Minoxidil foam as OP.
DM II
- AccuCheck AC & HS
- SSI
- continue pioglitazone
anxiety/depression
- continue alprazolam PRN
Code status: DNR
DVT prophylaxis: SCDs
Total time spent to see the patient, examine the patient, review data and lab results, discuss treatment plan with patient and nursing staff around 55 minutes
Anticipated Discharge: 24 - 48 hours
Subjective/Interval History
-
Date of Service: July 19, 2024
Patient was seen and examined at bedside this morning. She remains n.p.o. pending ERCP today. Currently pain-free.
Objective Data
-
Labs:
Laboratory Results
07/19/24
06:28
WBC 5.6
Hgb 8.1 L
Hct 24.7 L
Plt Count 237 D
Sodium 136
Potassium 4.3
Chloride 113 H
Carbon Dioxide 19 L
BUN 32 H
Creatinine 1.5 H
Glucose 94
Calcium 8.1 L
Total Bilirubin 0.3
AST 27
ALT 13
Alkaline Phosphatase 78
Vital Signs:
Vital Signs
Temp Pulse Resp BP Pulse Ox
98.0 F 76 14 136/49 99
07/19/24 07:23 07/19/24 13:19 07/19/24 07:23 07/19/24 13:19 07/19/24 09:26
I&O
07/18/24 07/19/24 07/20/24
06:59 06:59 06:59
Intake Total 660 / 660 690 / 690
Balance 660 / 660 690 / 690
Review of Systems
-
History Source: Patient
All other systems: Reviewed and negative
Physical Exam
-
General: No Apparent Distress
[2024-07-19 14:58] VITALS: BP 149/53
[2024-07-19 17:19] LABS: Glucose - Point of Care 85 mg/dl (70-99)
[2024-07-19] MEDS: FEOSOL 325 MG PO (20:31)
[2024-07-19] MEDS: TOPROL XL 25 MG PO (20:31)
[2024-07-19 21:17] LABS: Glucose - Point of Care 124 mg/dl (70-99)
[2024-07-19] MEDS: XANAX 0.5 MG PO (22:03)
[2024-07-19 23:44] VITALS: BP 122/46
[2024-07-20] VITALS (12 sets, daily range): BP systolic 133–184; BP diastolic 50–74; BMI 27.8
[2024-07-20 05:43] LABS: Glucose - Point of Care 80 mg/dl (70-99)
[2024-07-20 07:19] LABS: % Basophils 0.9 % (0-2); % Eosinophils 14.7 % (0-6); % Immature Granulocytes 0.6 % (0-0.5); % Lymphocytes 24.3 % (20.5-51.1); % Monocytes 7.2 % (1.7-9.3); % Neutrophils 52.3 % (42.2-75.2); Absolute Eosinophils 0.7 10^3/uL (0-0.7); Absolute Lymphocytes 1.1 10^3/uL (1.2-3.4); Absolute Monocytes 0.3 10^3/uL (0.1-0.6); Absolute Neutrophils 2.5 10^3/uL (1.4-6.5); Hematocrit 24.4 % (37.0-47.0); Hemoglobin 7.9 g/dL (12.0-16.0); Mean Corp Hgb Conc. 32.4 g/dL (33.0-37.0); Mean Corpuscular Hgb 29.7 pg (27.0-31.0); Mean Corpuscular Volume 91.7 fL (81.0-99.0); Mean Platelet Volume 8.7 fL (7.4-10.4); Nucleated Red Blood Cells % 0 %; Platelet Count 232 10^3/uL (130-400); Red Blood Cell Count 2.66 10^6/uL (4.20-5.40); Red Cell Dist. Width 14.6 % (11.5-14.5); White Blood Cell Count 4.7 10^3/uL (4.8-10.8)
[2024-07-20 07:46] LABS: Blood Urea Nitrogen 26 mg/dl (7-17); Calcium 8.2 mg/dl (8.4-10.2); Carbon Dioxide 19 mmol/L (22-30); Chloride 116 mmol/L (98-107); Estimated Creatinine Clearance 29 ml/min; Glucose 80 mg/dl (70-99); Potassium 4.1 mmol/L (3.5-5.1); Sodium 141 mmol/L (135-145); eGFR 41.57
[2024-07-20] MEDS: OCUVITE SOFTGEL PO (08:47)
[2024-07-20] MEDS: TOPROL XL PO (08:47)
[2024-07-20] MEDS: ACTOS PO (08:47)
[2024-07-20] MEDS: FARXIGA PO (08:47)
[2024-07-20] MEDS: ENTRESTO 24 MG/26 MG PO (08:47)
[2024-07-20] MEDS: CRESTOR PO (08:47)
[2024-07-20] MEDS: FEOSOL PO (08:47)
[2024-07-20] MEDS: LOW STRENGTH ASPIRIN PO (08:47)
[2024-07-20 14:42] LABS: Glucose - Point of Care 104 mg/dl (70-99)
--- NOTE | 2024-07-20 15:08 | W.PN.HOSP.TC ---
Today's Communication/Plan
-
Assessment / Plan
Assessment / Plan
Physical exam:
General: No Apparent Distress, Comfortable and Conversant
HEENT: NormoCephalic, Moist mucous membranes, Atraumatic, alopecia noted
Respiratory: Clear and Non Labored Respirations
Cardiac: S1/S2 and Regular Rhythm; No Rub or Gallop
GI: Soft, Non Tender, Non Distended and Normal Bowel Sounds
Musculoskeletal: No Edema
: NO Lim
Neuro: Awake, Alert, AO x 3 and Nonfocal/grossly intact
Psych: Calm and Intact Judgment/Insight
# Acute blood loss anemia due to GI bleed in setting of Brilinta
-hgb 6.7, hct 21.4 on admission, transfused 1 unit PRBCs 07/13, completed 5 doses of IV iron
-Associated iron deficiency anemia; Suspect there is some component of anemia of chronic disease as well
-Hemoglobin has drifted down to 7.9 this morning from 9.1 on 07/16
-Colonoscopy: single bleeding colonic angioectasia. 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 few duodenal polyps
-Per discussions: Patient had endoscopic procedure in [facility] a few years ago, reportedly had adenoma and placement of biliary stents at the time. Patient was advised to have Whipple surgery but declined.
-Abdominal x-ray confirmed biliary stent as well as pancreatic ductal stent. Patient did not want to go back to GI at [place].
-N.p.o. after midnight for planned ERCP with biliary stent placement today 07/20
Left renal lesion:
-Subcentimeter indeterminate left renal lesion noted incidentally on CT abdomen
-Recommend outpatient workup with dedicated renal ultrasound
#essential hypertension
- continue metoprolol
ischemic cardiomyopathy
ECHO (05/14/2024): LV ejection fraction is 60-65%. No regional wall motion abnormalities are seen.
Normal right ventricular size and function.
Aortic sclerosis without stenosis.
Mild tricuspid regurgitation. Estimated pulmonary artery pressure of 30-35 mmHg.
Compared to previous echo on 02/03/2024, overall cardiac function has improved (previous LVEF was 35-40%). The degree of tricuspid regurgitation has improved with a decline in PAP (previously moderate
to severe with a PAP of 75-80 mmHg).
- Restart home Entresto, continue dapagliflozin and metoprolol
-Per cardiology hold Brilinta indefinitely
CAD
Status post IVUS guided shockwave lithotripsy facilitated PCI to the left circumflex on 02/05/2024
-The plan was for DAPT with aspirin 81 mg and ticagrelor for 1 year, ticagrelor last dose on 07/09/2024 when she had a retinal hemorrhage, continue to hold
- continue aspirin and rosuvastatin
Stable EKG and she is without chest pain
CKD IIIb
-suspect secondary to DM and HTN
-Creatinine stable 1.2-1.5
-Monitor
# Alopecia
Ordered Minoxidil foam as OP.
DM II
- AccuCheck AC & HS
- SSI
- continue pioglitazone
anxiety/depression
- continue alprazolam PRN
Code status: DNR
DVT prophylaxis: SCDs
Total time spent to see the patient, examine the patient, review data and lab results, discuss treatment plan with patient and nursing staff around 55 minutes
Anticipated Discharge: 24 - 48 hours
Subjective/Interval History
-
Date of Service: July 20, 2024
Patient was seen and examined bedside this morning. Awaiting ERCP today, was canceled yesterday.
Objective Data
-
Labs:
Laboratory Results
07/20/24
06:49
WBC 4.7 L
Hgb 7.9 L
Hct 24.4 L
Plt Count 232
Sodium 141
Potassium 4.1
Chloride 116 H
Carbon Dioxide 19 L
BUN 26 H
Creatinine 1.3 H
Glucose 80
Calcium 8.2 L
Vital Signs:
Vital Signs
Temp Pulse Resp BP Pulse Ox
98.6 F 86 13 165/64 100
07/20/24 14:50 07/20/24 14:45 07/20/24 14:45 07/20/24 14:45 07/20/24 14:45
I&O
07/19/24 07/20/24 07/21/24
06:59 06:59 06:59
Intake Total 690 / 690 480 / 480 50 / 50
Output Total 150 / 150
Balance 690 / 690 480 / 480 -100 / -100
Review of Systems
-
History Source: Patient
All other systems: Reviewed and negative
Physical Exam
-
General: No Apparent Distress
[2024-07-20 17:20] LABS: Glucose - Point of Care 273 mg/dl (70-99)
[2024-07-20] MEDS: FEOSOL 325 MG PO (20:34)
[2024-07-20] MEDS: TOPROL XL 25 MG PO (20:34)
[2024-07-20] MEDS: ENTRESTO 24 MG/26 MG 1 TAB PO (20:34)
[2024-07-20 21:34] LABS: Glucose - Point of Care 182 mg/dl (70-99)
[2024-07-20] MEDS: XANAX 0.5 MG PO (21:56)
[2024-07-21 03:15] VITALS: BP 146/63
[2024-07-21 06:00] VITALS: BMI 27.7
[2024-07-21 07:03] LABS: % Basophils 0.8 % (0-2); % Eosinophils 0.8 % (0-6); % Immature Granulocytes 0.3 % (0-0.5); % Lymphocytes 16.9 % (20.5-51.1); % Monocytes 5.2 % (1.7-9.3); Absolute Basophils 0.1 10^3/uL (0-0.2); Absolute Eosinophils 0.1 10^3/uL (0-0.7); Absolute Lymphocytes 1.1 10^3/uL (1.2-3.4); Absolute Monocytes 0.3 10^3/uL (0.1-0.6); Absolute Neutrophils 4.7 10^3/uL (1.4-6.5); Hematocrit 27.8 % (37.0-47.0); Hemoglobin 8.9 g/dL (12.0-16.0); Mean Corpuscular Hgb 29.4 pg (27.0-31.0); Mean Corpuscular Volume 91.7 fL (81.0-99.0); Mean Platelet Volume 8.6 fL (7.4-10.4); Nucleated Red Blood Cells % 0 %; Platelet Count 245 10^3/uL (130-400); Red Blood Cell Count 3.03 10^6/uL (4.20-5.40); Red Cell Dist. Width 14.7 % (11.5-14.5); White Blood Cell Count 6.2 10^3/uL (4.8-10.8)
[2024-07-21 07:05] VITALS: BP 149/56
[2024-07-21 07:41] LABS: ALT (SGPT) 17 U/L (0-35); AST (SGOT) 33 U/L (14-36); Albumin 3.1 g/dl (3.5-5.0); Alkaline Phosphatase 78 U/L (38-126); Blood Urea Nitrogen 28 mg/dl (7-17); Calcium 8.7 mg/dl (8.4-10.2); Carbon Dioxide 20 mmol/L (22-30); Chloride 114 mmol/L (98-107); Direct Bilirubin 0.2 mg/dl (0.0-0.4); Estimated Creatinine Clearance 31 ml/min; Glucose 89 mg/dl (70-99); Potassium 4.4 mmol/L (3.5-5.1); Sodium 141 mmol/L (135-145); Total Bilirubin 0.5 mg/dl (0.2-1.3); Total Protein 5.6 g/dl (6.3-8.2); eGFR 45.76
[2024-07-21 07:46] LABS: Glucose - Point of Care 78 mg/dl (70-99)
[2024-07-21] MEDS: OCUVITE SOFTGEL 1 CAP PO (07:48)
[2024-07-21] MEDS: ENTRESTO 24 MG/26 MG 1 TAB PO (07:48)
[2024-07-21] MEDS: ACTOS 30 MG PO (07:48)
[2024-07-21] MEDS: CRESTOR 20 MG PO (07:48)
[2024-07-21] MEDS: FARXIGA 10 MG PO (07:49)
[2024-07-21] MEDS: TOPROL XL 25 MG PO (07:51)
[2024-07-21] MEDS: LOW STRENGTH ASPIRIN 81 MG PO (07:51)
[2024-07-21] MEDS: FEOSOL 325 MG PO (07:51)
--- NOTE | 2024-07-21 10:27 | CM ---
Patient had ERCP yesterday. Medically not yet ready for discharge but functionally still at baseline.
Plan: Case management will continue to follow and assist with discharge planning. Home when cleared for discharge.
[2024-07-21 10:58] VITALS: BP 152/61
[2024-07-21 11:32] LABS: Glucose - Point of Care 130 mg/dl (70-99)
--- NOTE | 2024-07-21 12:41 | W.PN.GI.CBS2 ---
Addendum entered and electronically signed by Charisse Bach MD 07/21/24 13:12:
d/w hospitalist no plans to start brilinta due to retinal hemorrhage
Original Note:
Today's Communication / Plan
-
Dr. Infante to evaluate pt
Assessment / Plan
-
78 yo F complex history as noted including coronary disease, macular degeneration and history of iron deficiency anemia with biliary stent presents with shortness of breath. Has known ampullary adenoma underwent EGD which showed redemonstration of
ampullary lesion with ulceration thought to be cause of anemia. Underwent ERCP/EUS with Dr. Del Rosario on 07/20 and had stents exchanged.
D/w Dr. Del Rosario and Dr. Infante.
Dr. Infante to see patient today to discuss with her option of surgery.
LFTs normal.
Advanced diet to regular.
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 Will need to confirm this with medical team.
I called and left voicemail for as per he had questions.
Subjective
Subjective
Date of Service: July 21, 2024
no events overnight
Objective
Data Reviewed
Laboratory Data:
Laboratory Results
07/21/24 06:50
07/21/24 06:50
Laboratory Results
PT 14.2 Sec (11.4-14.6) 07/13/24 11:32
INR 1.07 07/13/24 11:32
APTT 33.7 Sec (23.4-35.0) 07/13/24 11:32
Total Bilirubin 0.5 mg/dl (0.2-1.3) 07/21/24 06:50
AST 33 U/L (14-36) 07/21/24 06:50
ALT 17 U/L (0-35) 07/21/24 06:50
Alkaline Phosphatase 78 U/L (38-126) 07/21/24 06:50
Vital Signs and I&O:
Vital Signs
Temp Pulse Resp BP Pulse Ox
97.7 F 68 18 152/61 99
07/21/24 10:58 07/21/24 10:58 07/21/24 10:58 07/21/24 10:58 07/21/24 10:58
I&O
07/20/24 07/21/24 07/22/24
06:59 06:59 06:59
Intake Total 480 / 480 1010 / 1010
Output Total 150 / 150
Balance 480 / 480 860 / 860
Physical Exam
Physical Exam
GI: Non Distended and Non Tender
--- NOTE | 2024-07-21 14:47 | W.PN.HOSP.TC ---
Today's Communication/Plan
-
Assessment / Plan
Assessment / Plan
Physical exam:
General: No Apparent Distress, Comfortable and Conversant
HEENT: NormoCephalic, Moist mucous membranes, Atraumatic, alopecia noted
Respiratory: Clear and Non Labored Respirations
Cardiac: S1/S2 and Regular Rhythm; No Rub or Gallop
GI: Soft, Non Tender, Non Distended and Normal Bowel Sounds
Musculoskeletal: No Edema
: NO Lim
Neuro: Awake, Alert, AO x 3 and Nonfocal/grossly intact
Psych: Calm and Intact Judgment/Insight
# Acute blood loss anemia:
-Due to GI bleed in setting of Brilinta
-hgb 6.7, hct 21.4 on admission, transfused 1 unit PRBCs 07/13, completed 5 doses of IV iron
-Associated iron deficiency anemia; Suspect there is some component of anemia of chronic disease as well
-Hemoglobin now improved to 8.9
-Colonoscopy: single bleeding colonic angioectasia. 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 few duodenal polyps
-Per discussions: Patient had endoscopic procedure in [facility] a few years ago, reportedly had adenoma and placement of biliary stents at the time. Patient was advised to have Whipple surgery but declined.
-Abdominal x-ray confirmed biliary stent as well as pancreatic ductal stent. Patient did not want to go back to GI at [place].
-Status post ERCP with biliary stent placement 07/20, tolerated procedure well, awaiting surgical evaluation
Left renal lesion:
-Subcentimeter indeterminate left renal lesion noted incidentally on CT abdomen
-Recommend outpatient workup with dedicated renal ultrasound
#essential hypertension
- continue metoprolol
ischemic cardiomyopathy
-Continue home Entresto, dapagliflozin, and metoprolol
-Have discontinued Brilinta due to prior retinal hemorrhage, now on aspirin alone with no plans to restart Brilinta
CAD
-Status post IVUS guided shockwave lithotripsy facilitated PCI to the left circumflex on 02/05/2024
-The plan was for DAPT with aspirin 81 mg and Brilinta for 1 year, Brilinta last dose on 07/09/2024 when she had a retinal hemorrhage, will not restart Brilinta
- continue aspirin and rosuvastatin
CKD IIIb
-suspect secondary to DM and HTN
-Creatinine stable 1.2-1.5
-Monitor
# Alopecia
Ordered Minoxidil foam as OP.
DM II
- AccuCheck AC & HS
- SSI
- continue pioglitazone
anxiety/depression
- continue alprazolam PRN
Code status: DNR
DVT prophylaxis: SCDs
Total time spent to see the patient, examine the patient, review data and lab results, discuss treatment plan with patient and nursing staff around 55 minutes
Anticipated Discharge: 24 - 48 hours
Subjective/Interval History
-
Date of Service: July 21, 2024
Patient was seen and examined at bedside this morning. Status post ERCP with stent placement yesterday which she tolerated well. Awaiting surgery evaluation. Diet has been advanced.
Objective Data
-
Labs:
Laboratory Results
07/21/24
06:50
WBC 6.2
Hgb 8.9 L
Hct 27.8 L
Plt Count 245
Sodium 141
Potassium 4.4
Chloride 114 H
Carbon Dioxide 20 L
BUN 28 H
Creatinine 1.2 H
Glucose 89
Calcium 8.7
Total Bilirubin 0.5
AST 33
ALT 17
Alkaline Phosphatase 78
Vital Signs:
Vital Signs
Temp Pulse Resp BP Pulse Ox
97.7 F 68 18 152/61 99
07/21/24 10:58 07/21/24 10:58 07/21/24 10:58 07/21/24 10:58 07/21/24 10:58
I&O
07/20/24 07/21/24 07/22/24
06:59 06:59 06:59
Intake Total 480 / 480 1010 / 1010
Output Total 150 / 150
Balance 480 / 480 860 / 860
Review of Systems
-
History Source: Patient
All other systems: Reviewed and negative
Physical Exam
-
General: No Apparent Distress
[2024-07-21 15:05] VITALS: BP 177/63
--- NOTE | 2024-07-21 15:29 | W.DCSUMMARY ---
Discharge Summary
Discharge Data
Date of Admission: 07/13/24
Date of Discharge: 07/21/24
-
Pending Results: No
Hospital Course
Ms. Null is an 78-year-old female with a medical history of ischemic cardiomyopathy, heart failure with recovered ejection fraction, hypertension, CAD (PCI with stenting), retinal hemorrhage (now off Brilinta), CKD stage IIIb, alopecia, and
qvs-qopjrgq-eyhqgbceu diabetes mellitus who presented with GI bleed. She had noticed blood in her stool. Her hemoglobin dropped to 6.7 on admission from her baseline of around 9.0. She was transfused 1 unit PRBCs. 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
ampulla adenoma with placement of biliary stents at [place] a few years ago, and was advised to follow-up for Whipple surgery but declined. During this admission, colonoscopy showed single bleeding colonic angioectasia. Upper endoscopy showed
mild esophagitis, hemorrhagic gastropathy, duodenal polyps, and duodenal mass 4 to 5 cm with ulceration noted. She then underwent ERCP during this admission for biliary stent replacement. She tolerated the procedure well. She was then evaluated
by the surgical team to discuss possible surgical options. The patient opted to follow-up in the outpatient surgical clinic for further discussions regarding surgical treatments. Of note, she had an incidental finding of subcentimeter
indeterminate left renal lesion on CT imaging which will require outpatient follow-up with dedicated renal ultrasound. She will be discharged to home. She should follow-up closely with her primary care physician and with surgery. She should also
follow-up with her keyseater operator regarding optimizing her heart failure medications.
General: No Apparent Distress, Comfortable and Conversant
HEENT: NormoCephalic, Moist mucous membranes, Atraumatic, alopecia noted
Respiratory: Clear and Non Labored Respirations
Cardiac: S1/S2 and Regular Rhythm; No Rub or Gallop
GI: Soft, Non Tender, Non Distended and Normal Bowel Sounds
Musculoskeletal: No Edema
: NO Lim
Neuro: Awake, Alert, AO x 3 and Nonfocal/grossly intact
Psych: Calm and Intact Judgment/Insight
Discharge Plan
-
Patient Disposition: Home (Routine Discharge)
Discharge Diagnosis/Procedures: Acute blood loss anemia, GI bleed
Diet: As tolerated
Activity: As tolerated
Activity Restrictions/Additional Instructions:
Ms. Null is an 78-year-old female with a medical history of ischemic cardiomyopathy, heart failure with recovered ejection fraction, hypertension, CAD (PCI with stenting), retinal hemorrhage (now off Brilinta), CKD stage IIIb, alopecia, and
vtf-plkmvva-cxbksrmwf diabetes mellitus who presented with GI bleed. She had noticed blood in her stool. Her hemoglobin dropped to 6.7 on admission from her baseline of around 9.0. She was transfused 1 unit PRBCs. 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
ampulla adenoma with placement of biliary stents at [place] a few years ago, and was advised to follow-up for Whipple surgery but declined. During this admission, colonoscopy showed single bleeding colonic angioectasia. Upper endoscopy showed
mild esophagitis, hemorrhagic gastropathy, duodenal polyps, and duodenal mass 4 to 5 cm with ulceration noted. She then underwent ERCP during this admission for biliary stent replacement. She tolerated the procedure well. She was then evaluated
by the surgical team to discuss possible surgical options. The patient opted to follow-up in the outpatient surgical clinic for further discussions regarding surgical treatments. Of note, she had an incidental finding of subcentimeter
indeterminate left renal lesion on CT imaging which will require outpatient follow-up with dedicated renal ultrasound. She will be discharged to home. She should follow-up closely with her primary care physician and with surgery. She should also
follow-up with her keyseater operator regarding optimizing her heart failure medications.
Referrals:
Bruce Ramirez DO [Family Provider] -
Prescriptions:
New
minoxidil [Hair Regrowth Treatment] 5 % foam
1 ea topical DAILY Qty: 60 0RF
Continued
pioglitazone 30 mg Tablet
30 mg PO DAILY
PreserVision AREDS-2 250-90-40-1 mg Capsule
1 tab PO BID
aspirin 81 mg Tablet,Chewable
81 mg PO DAILY Qty: 90 3RF
metoprolol succinate 25 mg Tablet Extended Release 24 Hr
25 mg PO BID 30 Days Qty: 60 0RF
dapagliflozin propanediol 10 mg Tablet
10 mg PO DAILY 30 Days Qty: 30 0RF
Entresto 24-26 mg Tablet
1 tab PO BID 30 Days Qty: 60 0RF
alprazolam [Xanax] 0.5 mg Tablet
0.5 mg PO HSPRN PRN (Reason: sleep)
rosuvastatin 20 mg tablet
20 mg PO DAILY
ferrous sulfate 325 mg (65 mg iron) Tablet
325 mg PO BID
Discharge Orders:
Discharge Patient (As Directed); Ordered 07/21/24
Ordered By: Cecil Dowell
Discharge Date and Time
Print Language: TOGOLESE
== END 2024-07-21 17:13 | disposition home or self-care (01) | DRG 378 ==
LOC: 3 WEST ACU 15:29
PROVIDERS: Internal Medicine; Internal Medicine Gastroenterology; Nurse Practitioner Family; Physician Assistant; ADMITTING PHYSICIAN Internal Medicine; ATTENDING PHYSICIAN Internal Medicine; CONSULT PHYSICIAN Internal Medicine Gastroenterology; EMERGENCY PHYSICIAN Emergency Medicine; FAMILY PHYSICIAN Family Medicine; OTHER PHYSICIAN Student in an Organized Health Care Education/Training Program
PROC: 30233N1 Transfusion of Nonautologous Red Blood Cells into Peripheral Vein, Percutaneous Approach (ICD-10-PCS; 2024-07-13)
PROC: 0DB58ZX Excision of Esophagus, Via Natural or Artificial Opening Endoscopic, Diagnostic (ICD-10-PCS; 2024-07-16)
PROC: 0W3P8ZZ Control Bleeding in Gastrointestinal Tract, Via Natural or Artificial Opening Endoscopic (ICD-10-PCS; 2024-07-16)
PROC: 0DB68ZX Excision of Stomach, Via Natural or Artificial Opening Endoscopic, Diagnostic (ICD-10-PCS; 2024-07-16)
PROC: 0DB98ZX Excision of Duodenum, Via Natural or Artificial Opening Endoscopic, Diagnostic (ICD-10-PCS; 2024-07-16)
PROC: 0F758DZ Dilation of Right Hepatic Duct with Intraluminal Device, Via Natural or Artificial Opening Endoscopic (ICD-10-PCS; 2024-07-20)
PROC: 0FBC8ZX Excision of Ampulla of Vater, Via Natural or Artificial Opening Endoscopic, Diagnostic (ICD-10-PCS; 2024-07-20)
PROC: 0FPD8DZ Removal of Intraluminal Device from Pancreatic Duct, Via Natural or Artificial Opening Endoscopic (ICD-10-PCS; 2024-07-20)
PROC: 0FC98ZZ Extirpation of Matter from Common Bile Duct, Via Natural or Artificial Opening Endoscopic (ICD-10-PCS; 2024-07-20)
PROC: BF4CZZZ Ultrasonography of Hepatobiliary System, All (ICD-10-PCS; 2024-07-20)
PROC: 0FPB8DZ Removal of Intraluminal Device from Hepatobiliary Duct, Via Natural or Artificial Opening Endoscopic (ICD-10-PCS; 2024-07-20)
DX: K55.21 Angiodysplasia of colon with hemorrhage (principal); D62 Acute posthemorrhagic anemia; I13.0 Hypertensive heart and chronic kidney disease with heart failure and stage 1 through stage 4 chronic kidney disease, or unspecified chronic kidney disease; I50.32 Chronic diastolic (congestive) heart failure; Q39.9 Congenital malformation of esophagus, unspecified; T85.590A Other mechanical complication of bile duct prosthesis, initial encounter; K20.90 Esophagitis, unspecified without bleeding; K31.7 Polyp of stomach and duodenum; N18.32 Chronic kidney disease, stage 3b; E11.22 Type 2 diabetes mellitus with diabetic chronic kidney disease; L65.9 Nonscarring hair loss, unspecified; F41.9 Anxiety disorder, unspecified; F32.A Depression, unspecified; Z66 Do not resuscitate; I25.10 Atherosclerotic heart disease of native coronary artery without angina pectoris; Z95.5 Presence of coronary angioplasty implant and graft; I07.1 Rheumatic tricuspid insufficiency; I70.0 Atherosclerosis of aorta; I25.5 Ischemic cardiomyopathy; D50.9 Iron deficiency anemia, unspecified; D63.1 Anemia in chronic kidney disease; K44.9 Diaphragmatic hernia without obstruction or gangrene; K59.00 Constipation, unspecified; H35.30 Unspecified macular degeneration; E78.00 Pure hypercholesterolemia, unspecified; I25.2 Old myocardial infarction; Z83.3 Family history of diabetes mellitus; Z82.3 Family history of stroke; Z79.82 Long term (current) use of aspirin; Z79.899 Other long term (current) drug therapy; D13.5 Benign neoplasm of extrahepatic bile ducts; Y73.2 Prosthetic and other implants, materials and accessory gastroenterology and urology devices associated with adverse incidents; Z82.49 Family history of ischemic heart disease and other diseases of the circulatory system
CPT/HCPCS: 88305; 74018; 74177; 74330; 76000; 80048; 80053; 81003; 81015; 82248; 82607; 82728; 82746; 82962; 83036; 83540; 83550; 83605; 83880; 84484; 85014; 85018; 85025; 85027; 85610; 85730; 86301; 86850; 86900; 86901; 86920; 87086; 93005; 99285; C1769; C2617; J2916; P9016; Q9967

== ENCOUNTER 2024-09-24 00:42 | Emergency (ER) | payer OTHER, SELFPAY ==
[2024-09-24 00:46] VITALS: BP 162/79
[2024-09-24 03:31] VITALS: BMI 28.6
[2024-09-24 03:41] VITALS: BP 219/64
[2024-09-24] MEDS: REGLAN 10 MG IV (04:49)
[2024-09-24 05:05] LABS: % Basophils 0.8 % (0-2); % Eosinophils 7.9 % (0-6); % Immature Granulocytes 0.2 % (0-0.5); % Lymphocytes 24.5 % (20.5-51.1); % Monocytes 6.2 % (1.7-9.3); % Neutrophils 60.4 % (42.2-75.2); Absolute Eosinophils 0.4 10^3/uL (0-0.7); Absolute Lymphocytes 1.3 10^3/uL (1.2-3.4); Absolute Monocytes 0.3 10^3/uL (0.1-0.6); Absolute Neutrophils 3.1 10^3/uL (1.4-6.5); Hematocrit 31.6 % (37.0-47.0); Hemoglobin 10.5 g/dL (12.0-16.0); Mean Corp Hgb Conc. 33.2 g/dL (33.0-37.0); Mean Corpuscular Volume 93.2 fL (81.0-99.0); Nucleated Red Blood Cells % 0 %; Platelet Count 219 10^3/uL (130-400); Red Blood Cell Count 3.39 10^6/uL (4.20-5.40); White Blood Cell Count 5.2 10^3/uL (4.8-10.8)
--- NOTE | 2024-09-24 05:05 | ED.GENMED ---
History of Present Illness
General
Chief Complaint: Headache
Source: patient and spouse
Exam Limitations: none
Time Seen by Provider: 09/24/24 03:40
Nursing documentation reviewed up to this point in time: agreed with
History of Present Illness
History of Present Illness:
79-year-old female past medical history of CHF CAD hypertension hyperlipidemia, renal disease presenting to the emergency department today with concerns of left-sided headache has had this somewhat intermittently she says over the past few weeks
specifically had an episode tonight that seem to be abrupt has improved after receiving Tylenol. Denies any changes in vision numbness weakness nausea vomiting or neck pain.
Past History
Past History
ED Past Medical History: CAD
Social History
Tobacco: Non-smoker
Review of Systems
Review of Systems
Allergies reviewed?: Yes
All Other Systems: ROS reviewed and negative except as documented in HPI and ROS
Phy Exam
Physical Exam
Physical Exam:
GENERAL: Alert , in no apparent distress
EYE: pupils equal and reactive
NECK: Supple, no significant adenopathy.
ENT: o/p clr, mmm.
CARDIAC: Regular rate and rhythm .
LUNGS: Clear breath sounds bilaterally, no acute respiratory distress, no wheezes/rales/rhonchi
ABDOMEN: Soft, without focal tenderness, no r/g, no cvat
NEUROLOGICAL: Alert and oriented, no focal neuro deficits
SKIN: Warm and dry, skin intact.
MUSCULOSKELETAL: No edema, well perfused.
PSYCH: Normal and appropriate interaction.
Course
Orders/Labs/Results
Orders:
Orders
09/24/24 00:54
CT Head W/o Iv Contrast Urgent
Comment:
Reason For Exam: L frontal headache radiating to l ear
09/24/24 04:17
Urinalysis Reflex To Culture Urgent
Metoclopramide [Reglan] 10 mg IV NOW STA
09/24/24 04:49
Complete Blood Count/With Diff Urgent
Comprehensive Metabolic Panel Urgent
ESR [Erythrocyte Sed Rate] Urgent
Abnormal Lab Results
09/24/24
04:49
RBC 3.39 L 10^6/uL
(4.20-5.40)
Hgb 10.5 L g/dL
(12.0-16.0)
Hct 31.6 L %
(37.0-47.0)
Eosinophils % 7.9 H %
(0-6)
ESR 69 H mm/hour
(0-20)
Chloride 113 H mmol/L
(98-107)
BUN 57 H mg/dl
(7-17)
Creatinine 1.6 H mg/dL
(0.6-1.0)
Glucose 111 H mg/dl
(70-99)
Total Protein 6.0 L g/dl
(6.3-8.2)
Albumin 3.4 L g/dl
(3.5-5.0)
09/24/24 04:49
09/24/24 04:49
Vital Signs
Initial and Last Documented VS:
Initial Vital Signs
Temp Pulse Resp BP Pulse Ox
98.4 F 60 16 162/79 99
09/24/24 00:46 09/24/24 00:46 09/24/24 00:46 09/24/24 00:46 09/24/24 00:46
Last Documented Vital Signs
Temp Pulse Resp BP Pulse Ox
98.4 F 56 16 219/64 99
09/24/24 00:46 09/24/24 03:41 09/24/24 03:41 09/24/24 03:41 09/24/24 03:41
MDM/Problems Addressed
MDM/Problems Addressed:
79-year-old female presenting to the emergency department today with concerns of headache mainly to the left side radiating from the left frontal to the left parietal region. No nausea vomiting normal neurologic evaluation patient well-appearing no
distress here. Vital signs on arrival high blood pressure but otherwise vital signs without acute abnormalities. Patient was given oxygen as there is a possibility this could be a cluster type headache. Additionally was given dose of Reglan.
Patient has significant improvement of symptoms now with no symptoms at time of reassessment. Labs showing elevated ESR this seems to be very unlikely be consistent with any temporal arteritis concerning full resolution of symptoms no ongoing
reproducible pain no ongoing temporal discomfort no visual changes. She was advised for close outpatient follow-up. Return precautions given.
*Critical Care Note
Total Time (30-74mins, 75-104mins- exclusive of procedures): Not Applicable
ED Attending Note
-
Portions of this chart may have been created with voice recognition software.� Occasional wrong word or��sound alike� substitutions may have occurred due to the inherent limitations of voice recognition software.
Discharge Plan
Departure
Patient Disposition: Home (Routine Discharge)
Date of Disposition: 09/24/24
Time of Disposition: 06:13
Patient with high blood pressure during this ER visit?: No
Condition: Good
Covid-19: Not Applicable
Discharge Problem:
Headache
Instructions: Headache, Adult (DC)
Prescriptions:
No Action
pioglitazone 30 mg Tablet
30 mg PO DAILY
PreserVision AREDS-2 250-90-40-1 mg Capsule
1 tab PO BID
aspirin 81 mg Tablet,Chewable
81 mg PO DAILY Qty: 90 3RF
dapagliflozin propanediol 10 mg Tablet
10 mg PO DAILY 30 Days Qty: 30 0RF
Entresto 24-26 mg Tablet
1 tab PO BID 30 Days Qty: 60 0RF
alprazolam [Xanax] 0.5 mg Tablet
0.5 mg PO HSPRN PRN (Reason: sleep)
ferrous sulfate 325 mg (65 mg iron) Tablet
325 mg PO BID
dapagliflozin propanediol [Farxiga] 10 mg Tablet
10 mg PO DAILY
metoprolol succinate 25 mg tablet extended release 24 hr
50 mg PO DAILY
Referrals:
Bruce Ramirez DO [Family Provider, [facility]]
Activity Restrictions/Additional Instructions:
You came to the emergency department today with concerns of a headache. Here you had a normal head CT and reassuring assessment otherwise. Please follow-up closely as an outpatient. Return for any worsening, new or concerning symptoms. Please
follow closely with your band cutter.
Interventions
Interventions:
*Risk Screen - Suicide Last Done: 09/24/24 00:46
*General Assessment Last Done: 09/24/24 03:28
*Neglect/Abuse Screening Last Done: 09/24/24 03:28
*ED- Fall Risk Assessment Last Done: 09/24/24 03:28
*ED COVID-19 Vaccine History Last Done: 09/24/24 03:28
ED- Neurological Assessment Last Done: 09/24/24 03:28
Discharge Date and Time
Print Language: LIBYAN
[2024-09-24 05:25] LABS: ALT (SGPT) 16 U/L (0-35); AST (SGOT) 29 U/L (14-36); Albumin 3.4 g/dl (3.5-5.0); Alkaline Phosphatase 102 U/L (38-126); Blood Urea Nitrogen 57 mg/dl (7-17); Calcium 8.8 mg/dl (8.4-10.2); Carbon Dioxide 23 mmol/L (22-30); Chloride 113 mmol/L (98-107); Estimated Creatinine Clearance 24 ml/min; Glucose 111 mg/dl (70-99); Potassium 4.5 mmol/L (3.5-5.1); Sodium 141 mmol/L (135-145); Total Bilirubin 0.3 mg/dl (0.2-1.3)
[2024-09-24 05:55] LABS: Erythrocyte Sed Rate 69 mm/hour (0-20)
[2024-09-24 06:15] VITALS: BP 188/57
[2024-09-24 07:00] VITALS: BP 201/64
== END 2024-09-24 07:00 | disposition home or self-care (01) ==
LOC: EMR 00:42
PROVIDERS: Physician Assistant; EMERGENCY PHYSICIAN Student in an Organized Health Care Education/Training Program; FAMILY PHYSICIAN Family Medicine
DX: R51.9 Headache, unspecified (principal); I11.0 Hypertensive heart disease with heart failure; I50.9 Heart failure, unspecified; I25.10 Atherosclerotic heart disease of native coronary artery without angina pectoris; E78.5 Hyperlipidemia, unspecified
CPT/HCPCS: 96374; 99284; 70450; 80053; 85025; 85652

== ENCOUNTER 2024-09-25 00:09 | Emergency (ER) | payer OTHER, SELFPAY ==
[2024-09-25] VITALS (7 sets, daily range): BP systolic 160–217; BP diastolic 55–104; BMI 28.3
[2024-09-25 00:48] LABS: % Basophils 0.9 % (0-2); % Eosinophils 7.1 % (0-6); % Lymphocytes 21.8 % (20.5-51.1); % Monocytes 5.7 % (1.7-9.3); % Neutrophils 64.5 % (42.2-75.2); Absolute Eosinophils 0.3 10^3/uL (0-0.7); Absolute Monocytes 0.3 10^3/uL (0.1-0.6); Absolute Neutrophils 2.8 10^3/uL (1.4-6.5); Hematocrit 34.2 % (37.0-47.0); Hemoglobin 11.1 g/dL (12.0-16.0); Mean Corp Hgb Conc. 32.5 g/dL (33.0-37.0); Mean Corpuscular Hgb 30.2 pg (27.0-31.0); Mean Corpuscular Volume 93.2 fL (81.0-99.0); Nucleated Red Blood Cells % 0 %; Red Blood Cell Count 3.67 10^6/uL (4.20-5.40); Red Cell Dist. Width 14.1 % (11.5-14.5); White Blood Cell Count 4.4 10^3/uL (4.8-10.8)
[2024-09-25 00:56] LABS: ALT (SGPT) 19 U/L (0-35); AST (SGOT) 35 U/L (14-36); Albumin 3.5 g/dl (3.5-5.0); Alkaline Phosphatase 125 U/L (38-126); Blood Urea Nitrogen 58 mg/dl (7-17); Calcium 8.6 mg/dl (8.4-10.2); Carbon Dioxide 22 mmol/L (22-30); Chloride 115 mmol/L (98-107); Estimated Creatinine Clearance 23 ml/min; Glucose 126 mg/dl (70-99); Potassium 4.4 mmol/L (3.5-5.1); Sodium 141 mmol/L (135-145); Total Bilirubin 0.4 mg/dl (0.2-1.3); Total Protein 6.1 g/dl (6.3-8.2); eGFR 29.94
[2024-09-25 02:07] LABS: Mean Platelet Volume 9.1 fL (7.4-10.4)
[2024-09-25 02:08] LABS: Platelet Count 229 10^3/uL (130-400)
[2024-09-25] MEDS: REGLAN 10 MG IV (04:05)
[2024-09-25] MEDS: XANAX 0.5 MG PO (04:05)
[2024-09-25] MEDS: ENTRESTO 24 MG/26 MG 1 TAB PO (04:20)
--- NOTE | 2024-09-25 04:45 | ED.GENMED ---
History of Present Illness
General
Chief Complaint: Headache
Source: patient, previous radiology exam (CT of the head performed yesterday, unremarkable.) and previous hospital records (ED visit yesterday for very similar complaint.)
Exam Limitations: none
Time Seen by Provider: 09/25/24 03:41
Nursing documentation reviewed up to this point in time: agreed with
History of Present Illness
History of Present Illness:
This is an 79-year-old woman with history of CAD, CHF, hypertension, chronic kidney disease, uce-[id number]-[id number] diabetes.
Evaluated yesterday for similar complaint of somewhat abrupt onset of left frontal to left temporal headache radiating to her left ear. Headache has been intermittent over the past few weeks.
Unremarkable CT of the head yesterday. Unremarkable laboratory studies save for elevated sed rate of 69.
Headache resolved promptly with an IV dose of Reglan and she was discharged to home yesterday morning.
Patient was feeling well throughout the day yesterday but awoke tonight with return of left frontal headache. She denies nausea nor vomiting.
She is noted to be significantly hypertensive, somewhat similar hypertension noted yesterday, improved with resolution of headache.
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 Plan was to discontinue metoprolol and a different antihypertensive medication was called to her
pharmacy which she plans to olive picker today.
Past History
Past History
ED Past Medical History: CAD, CHF, HTN, Hypercholesterolemia, NIDDM, DE, Renal failure (Chronic kidney disease stage III), Psychiatric (Anxiety) and Other (History of macular degeneration)
ED Past Surgical History: Cardiac (PTCA with stents), Cholecystectomy and Orthopedic
Social History
Tobacco: Non-smoker
Alcohol: None
Drug: None
Personal:
Living: with family
Employment: Retired
Family History
Family History: Other (Noncontributory)
Phy Exam
Physical Exam
Physical Exam:
GENERAL: Alert , in no apparent distress
EYE: pupils equal and reactive. Extraocular muscles intact anicteric
NECK: Supple, nontender, no meningismus, no significant adenopathy.
ENT: posterior pharynx is clear, oral mucosa is moist. TM clear b/l, nares patent. Mild tenderness left frontal scalp. No temporal tenderness. No soft tissue swelling.
CARDIAC: Regular rate and rhythm. no murmur.
LUNGS: Clear breath sounds bilaterally, no acute respiratory distress, no wheezes/rales/rhonchi
ABDOMEN: Soft, nondistended, without focal tenderness
NEUROLOGICAL: Alert and oriented x3, no focal neuro deficits. Gait is steady.
SKIN: Warm and dry, normal color, skin intact. No rash.
MUSCULOSKELETAL: No C/C/E. peripheral pulses are full and equal b/l. No palpable tenderness.
PSYCH: Normal and appropriate interaction.
Course
Orders/Labs/Results
Orders:
Orders
09/25/24 00:30
Complete Blood Count/With Diff Urgent
Comprehensive Metabolic Panel Urgent
09/25/24 03:54
Alprazolam [Xanax] 0.5 mg PO NOW STA
09/25/24 03:55
Metoclopramide [Reglan] 10 mg IV NOW STA
09/25/24 04:01
Sacubitril 24/Valsartan 26 [Entresto 24 mg/26 mg] 1 tab PO NOW STA
Abnormal Lab Results
09/25/24
00:30
WBC 4.4 L 10^3/uL
(4.8-10.8)
RBC 3.67 L 10^6/uL
(4.20-5.40)
Hgb 11.1 L g/dL
(12.0-16.0)
Hct 34.2 L %
(37.0-47.0)
MCHC 32.5 L g/dL
(33.0-37.0)
Absolute Lymphs (auto) 1.0 L 10^3/uL
(1.2-3.4)
Eosinophils % 7.1 H %
(0-6)
Chloride 115 H mmol/L
(98-107)
BUN 58 H mg/dl
(7-17)
Creatinine 1.7 H mg/dL
(0.6-1.0)
Glucose 126 H mg/dl
(70-99)
Total Protein 6.1 L g/dl
(6.3-8.2)
09/25/24 00:30
09/25/24 00:30
Vital Signs
Initial and Last Documented VS:
Initial Vital Signs
BP
217/77
09/25/24 00:13
Last Documented Vital Signs
Temp Pulse Resp BP Pulse Ox
97.9 F 73 17 160/59 98
09/25/24 00:15 09/25/24 04:45 09/25/24 04:45 09/25/24 04:35 09/25/24 04:45
MDM/Problems Addressed
Differential Diagnosis Includes:
Concern for migraine headache, tension headache, there is some consideration for temporal arteritis however less likely as headache promptly resolved with Reglan and patient has remained headache free until tonight.
Will trial an IV dose of Reglan and continue to observe. If headache resolves would recommend prescription for oral Reglan with plan for prompt follow-up with PCP and would recommend follow-up with neurology as well.
Will give her usual dose of Entresto now for elevated blood pressure.
Chronic conditions affecting care: DM and HTN
*Pulse Oximetry
Patient hypoxic: no
*Critical Care Note
Total Time (30-74mins, 75-104mins- exclusive of procedures): Not Applicable
Update Note
Update Note:
04:50
Patient feeling improved and is eager to be discharged to home. Headache has resolved.
Blood pressure improving.
Will discharge to home with prescription for oral Reglan to take for as needed headache.
Recommend prompt follow-up with PCP and will refer to neurology as well.
ED Attending Note
-
Portions of this chart may have been created with voice recognition software.� Occasional wrong word or��sound alike� substitutions may have occurred due to the inherent limitations of voice recognition software.
Discharge Plan
Departure
Patient Disposition: Home (Routine Discharge)
Date of Disposition: 09/25/24
Time of Disposition: 04:54
Patient with high blood pressure during this ER visit?: No
Condition: Good
Discharge Problem:
acute left frontal headache
Instructions: Migraines (DC)
Prescriptions:
New
metoclopramide HCl [Reglan] 10 mg tablet
10 mg PO Q8HPRN PRN (Reason: headache) Qty: 9 0RF
No Action
pioglitazone 30 mg Tablet
30 mg PO DAILY
PreserVision AREDS-2 250-90-40-1 mg Capsule
1 tab PO BID
aspirin 81 mg Tablet,Chewable
81 mg PO DAILY Qty: 90 3RF
dapagliflozin propanediol 10 mg Tablet
10 mg PO DAILY 30 Days Qty: 30 0RF
Entresto 24-26 mg Tablet
1 tab PO BID 30 Days Qty: 60 0RF
alprazolam [Xanax] 0.5 mg Tablet
0.5 mg PO HSPRN PRN (Reason: sleep)
ferrous sulfate 325 mg (65 mg iron) Tablet
325 mg PO BID
dapagliflozin propanediol [Farxiga] 10 mg Tablet
10 mg PO DAILY
metoprolol succinate 25 mg tablet extended release 24 hr
50 mg PO DAILY
Referrals:
Alex Kim MD [Active, Neurology] - Call in 1-3 days for appt
Bruce Ramirez DO [Family Provider, Family Practice] - Call in 1-3 days for appt
Interventions
Interventions:
*Risk Screen - Suicide Last Done: 09/25/24 00:15
*General Assessment Last Done: 09/25/24 00:15
*Neglect/Abuse Screening Last Done: 09/25/24 00:15
*ED- Fall Risk Assessment Last Done: 09/25/24 00:24
*ED COVID-19 Vaccine History Last Done: 09/25/24 00:24
*Nursing Disposition Last Done: 09/25/24 05:00
ED- Neurological Assessment Last Done: 09/25/24 00:24
Discharge Date and Time
Discharge Date/Time: 09/25/24 05:03
Print Language: UPPER SORBIAN
== END 2024-09-25 05:03 | disposition home or self-care (01) ==
LOC: EMR 00:09
PROVIDERS: Emergency Medicine; EMERGENCY PHYSICIAN Emergency Medicine; FAMILY PHYSICIAN Family Medicine
DX: R51.9 Headache, unspecified (principal); E11.22 Type 2 diabetes mellitus with diabetic chronic kidney disease; I13.0 Hypertensive heart and chronic kidney disease with heart failure and stage 1 through stage 4 chronic kidney disease, or unspecified chronic kidney disease; I25.10 Atherosclerotic heart disease of native coronary artery without angina pectoris; I50.9 Heart failure, unspecified; E78.00 Pure hypercholesterolemia, unspecified; N18.30 Chronic kidney disease, stage 3 unspecified; Z95.5 Presence of coronary angioplasty implant and graft; Z90.49 Acquired absence of other specified parts of digestive tract
CPT/HCPCS: 96374; 99284; 80053; 85025